=== PATIENT | male | born 1965 | race Caucasian/White ===

== ENCOUNTER 2017-12-04 21:34 | Inpatient (IN) | payer MEDICARE, OTHER ==
[2017-12-04 22:25] LABS: URINE MICROSCOPIC INDICATED? YES; URINE SOURCE RANDOM
[2017-12-04 22:27] LABS: URINE BILIRUBIN NEGATIVE (NEGATIVE); URINE BLOOD NEGATIVE (NEGATIVE); URINE GLUCOSE (UA) NEGATIVE (NEGATIVE); URINE KETONE NEGATIVE (NEGATIVE); URINE LEUKOCYTE ESTERASE NEGATIVE (NEGATIVE); URINE NITRATE NEGATIVE (NEGATIVE); URINE PROTEIN NEGATIVE (NEGATIVE); URINE UROBILINOGEN 0.2 E.U./dL (0.2 - 1.0)
[2017-12-04 22:29] LABS: URINE CLARITY c (CLEAR); URINE COLOR YELLOW
[2017-12-04 22:38] LABS: URINE BACTERIA FEW /hpf (NONE SEEN); URINE EPITHELIAL CELLS RARE /lpf (FEW); URINE RBC 0-2 /hpf (0-5)
[2017-12-05] MEDS ORDERED: Maalox 30 mL Cup PO PRN (00:26)
[2017-12-05] MEDS ORDERED: Acetaminophen 500 MG TAB PO PRN (00:26)
[2017-12-05] MEDS ORDERED: Magnesium Hydroxide (MOM) 30 mL UDC PO PRN (00:26)
[2017-12-05] MEDS ORDERED: Polyvinyl Alcohol Ophth Soln 15 mL Bottle EACH EYE PRN (00:32)
--- NOTE | 2017-12-05 01:06 | ED Physician Chart ---
ED Chief Complaint/HPI - Patient Information Date Seen:: 12/04/17 Time Seen:: 22:30 Chief Complaint:: Increased agitation History of Present Illness:: PATIENT SENT FROM INSTITUTIONAL CARE FOR EVALUATION FOR INCREASED AGITATION 1 DAY DURATION. Allergies:: Allergies Allergy/AdvReac Type Severity Reaction Status Date / Time clonazepam Allergy Verified 12/04/17 22:00 Historian:: EMS Review:: Nurse's Note Reviewed ED Review of Systems - Review of Systems Other: ROS UNAVAILABLE, PATIENT REFUSING. ED Past Medical History - Past Medical History Obtainable: No (PSYCHIATRIC HISTORY) Family Medical History - Family Member Mother History Unknown: Yes ED Physical Exam - Physical Examination General/Constitutional: Awake Head: Atraumatic Eyes: Lids, conjuctiva normal Skin: Nl inspection Cardio Vascular: RRR GI: No tenderness/rebounding/guarding Other GI comments:: OBESE. Extremities: No tenderness or effusion Other Neuro/Psych comments:: AGITATION. ED Assessment - Assessment General Assessment: DETERIORATION OF PSYCHOLOGICAL STATUS WITH INCREASED ANTISOCIAL BEHAVIOR. ED Septic Shock - . Is Septic Shock (SBP<90, OR Lactate>4 mmol\L) present?: No ED Reassessment (Disposition) - Reassessment Reassessment Condition:: Unchanged - Diagnosis Diagnosis:: INCREASED ANTISOCIAL BEHAVIOR WITH POTENTIAL PSYCHIATRIC DETERIORATION. - Patient Disposition Discharge/Transfer:: Acute Care w/in this hosp ED Discharge Plan - Patient Disposition Admit/Discharge/Transfer: Other Care w/in this hosp Condition at Disposition: Unchanged
[2017-12-05] MEDS: Multivitamin w/ Minerals Tab PO SCH (08:20)
[2017-12-05] MEDS: Benztropine 1 MG TAB PO SCH ×2 (08:20→18:01)
[2017-12-05] MEDS: Aspirin 81mg Chewable Tab PO SCH (08:20)
[2017-12-05] MEDS: risperiDONE 4 mg Tab PO SCH ×3 (08:20→18:01)
[2017-12-05] MEDS ORDERED: Non-Formulary Item 1 EA (Fluticasone/Salmeterol [Advair 100-50 Diskus] 1 PUFF) IH SCH (09:00)
--- NOTE | 2017-12-05 11:54 | History and Physical ---
History of Present Illness - HPI Chief Complaint: Aggressive behavior HPI: Patient was send from SNF due to aggressive behavior. 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: Report: No Pertinent Hx GI: Report: No Pertinent Hx Psych: Report: Schizophrenia Musculoskeletal: Report: No Pertinent Hx Rheumatologic: Report: No pertinent Hx Infectious Disease: Report: No Pertinent Hx Renal/: Report: No Pertinent Hx Endocrine: Report: No Pertinent Hx Dermatology: Report: Other (Left foot ulcer) - Past Surgical History Past Surgical History: No pertinent Hx Family Medical History - Family Member Mother History Unknown: Yes Ethnicity: Non- Living Status: Unknown Hx Family Cancer: (unknown) Hx Family Coronary Artery Disease: (unknown) Hx Family Congestive Heart Failure: (unknown) Hx Family Hypertension: (unknown) Hx Family Stroke: (unknown) Hx Family Diabetes: (unknown) Hx Family Seizures: (unknown) Hx Family Dementia: (unknown) Hx Family AIDS: (unknown) Hx Family COPD: (unknown) Hx Family Hepatitis: (unknown) Hx Family Psychiatric Problems: (unknown) Hx Family Tuberculosis: (unknown) Social History Smoke: No Alcohol: None Drugs: None [place]: [place] Domestic Violence: Negative - Medications Home Medications: Home Medication Medication Instructions Recorded Type Acetaminophen [Tylenol Extra 500 mg PO Q4HR PRN 12/04/17 History Strength] Albuterol/Ipratropium Neb [Duoneb 3 ml HHN Q4HR PRN 12/04/17 History Neb] Ascorbic Acid [Vitamin C] 500 mg PO BID 12/04/17 History Aspirin [Aspirin Chewable] 81 mg PO DAILY 12/04/17 History Baclofen [Lioresal*] 10 mg PO QID 12/04/17 History Benztropine [Cogentin*] 1 mg PO BID 12/04/17 History Bisacodyl 10 mg RC DAILY PRN 12/04/17 History Dextran 70/Hypromellose 1 each OP Q4H PRN 12/04/17 History [Artificial Tears] Docusate Sodium [Colace] 250 mg PO DAILY 12/04/17 History Fluticasone/Salmeterol [Advair 1 puff IH BID 12/04/17 History 100-50 Diskus] Mag Hydrox/Al Hydrox/Simeth 30 ml PO Q4H PRN 12/04/17 History [Maalox Advanced 355 ml] Magnesium Hydroxide [Milk of 30 ml PO DAILY PRN 12/04/17 History Magnesia] Melatonin 3 mg PO HS 12/04/17 History Multivitamin with Minerals 1 tab PO DAILY 12/04/17 History [Nature's Blend Multiple Vitamin with Minerals] Naproxen 250 mg PO Q4H PRN 12/04/17 History OXcarbazepine [Trileptal] 150 mg PO Q12H 12/04/17 History Risperidone 4 mg PO BID 12/04/17 History Trazodone HCl 50 mg PO HS 12/04/17 History - Allergies Allergies/Adverse Reactions: Allergies Allergy/AdvReac Type Severity Reaction Status Date / Time clonazepam Allergy Verified 12/04/17 22:00 Review of Systems - Review of Systems Constitutional: Report: No Significant Eyes: Report: No Significant ENT: Report: No Significant Respiratory: Report: No Significant Cardiovascular: Report: No Significant Gastrointestinal: Report: No Significant Genitourinary: Report: No Significant Musculoskeletal: Report: No Significant Skin: Report: No Significant Neurological: Report: No Significant Physical Exam - Physical Exam HEENT: Report: Ears Nose Throat within normal limits Neck: Report: Within normal limits Cardiovascular Systems: Report: Regular, Rate and Rhythm Respiratory: Report: Breath Sounds are within normal limits Abdomen: Report: Non-tender to palpation Back: Report: Inspection of back is within normal limits. Extremities: Report: Non-tender to palpation., Other (Left foot ulcer stage II) Skin: Report: Other (Left foot ulcer) Neuro/Psych: Report: Other (Patient is aggressive. ) - Lab Results All Lab Results last 24 hours: Laboratory Results - last 24 hr 12/04/17 22:00 Urine Source RANDOM Urine Color YELLOW Urine Clarity c Urine pH 6.0 Ur Specific [place] <= 1.005 Urine Protein NEGATIVE Urine Glucose (UA) NEGATIVE Urine Ketones NEGATIVE Urine Blood NEGATIVE Urine Nitrate NEGATIVE Urine Bilirubin NEGATIVE Urine Urobilinogen 0.2 Ur Leukocyte Esterase NEGATIVE Urine RBC 0-2 H Urine WBC 2-5 H Ur Epithelial Cells RARE Urine Bacteria FEW - Assessment Assessment: Patient is awake aggressive rfusing labs and no cooperating with Physical exam. Dx: Aggressive behavior, Foot ulcer. - Plan Plan: Patient under psychiatric care. Will continue with SNF meds. As soon patient give authorization we will draw blood and start treatment for Left foot ulcer.
--- NOTE | 2017-12-05 17:45 | Psychosocial Evaluation ---
DATE OF SERVICE: 12/04/2017 IDENTIFYING DATA: The patient is a 52-year-old male, resident of [facility]. Information obtained by directly interviewing the patient as well as reviewing the admission paper. JUSTIFICATION OF HOSPITALIZATION: The patient is admitted here on a voluntary basis in view of his aggression and out of control behavior. CHIEF COMPLAINT: "I should not be in here. I should be out." HISTORY OF PRESENT ILLNESS: This is the first psychiatric hospitalization to [facility] for this patient who is being followed up by ____ on an outpatient basis and the patient has been diagnosed to have schizophrenia, chronic paranoid type. The patient has been noted to have nonhealing ulcer on the leg and also the patient has been reported to have been getting easily agitated, screaming and yelling and hence the patient has been referred over here. Prior to the hospitalization, the patient has been on Risperdal and trazodone. The complaints is noted to be doubtful. PAST PSYCHIATRIC HISTORY: Details are not known. MEDICAL HISTORY: Physical examination is requested by Dr. Alanis. SUBSTANCE ABUSE HISTORY: None. PHYSICAL OR SEXUAL ABUSE HISTORY: None. LEGAL PROBLEMS: None at this time. STRENGTH AND ASSETS: The patient is motivated. MENTAL STATUS EXAMINATION: The patient is a 52-year-old well built, looking his stated age, superficially cooperative. Eye contact is poor. Mood is noted to be irritable. Affect is constricted. Insight and judgment at this time are noted to be very much impaired. Impulse control is noted to be poor. The patient has paranoid delusions, but denies any command hallucinations. The patient is demanding that he should be out of this hospital and the patient's coping skills are noted to be poor. The patient has no clue where he is going to be going when he leaves this place. The patient is alert and oriented x 3. DIAGNOSTIC IMPRESSION: AXIS I: Schizophrenia, chronic, paranoid type by history. AXIS II: None. AXIS III: As per Dr. Alanis. IMMEDIATE TREATMENT PLAN: The patient is going to be observed on inpatient unit probably supportive psychotherapy. Continued on the Risperdal and trazodone. ESTIMATED LENGTH OF STAY: Three to five days. DISCHARGE CRITERIA: When he no longer a threat to self or others and be able to cope up with the stress. JOB# [id number]
[2017-12-05] MEDS ORDERED: Non-Formulary Item 1 EA (Melatonin [Melatonin] 3 MG) PO SCH (21:00)
[2017-12-05] MEDS: Albuterol/Ipratropium Neb 3 ML AERS HHN PRN (21:11)
[2017-12-06] MEDS: Aspirin 81mg Chewable Tab PO SCH (09:05)
[2017-12-06] MEDS: Benztropine 1 MG TAB PO SCH ×2 (09:05→17:23)
[2017-12-06] MEDS: Multivitamin w/ Minerals Tab PO SCH (09:06)
[2017-12-06] MEDS: risperiDONE 4 mg Tab PO SCH ×2 (09:07→17:23)
--- NOTE | 2017-12-06 20:02 | Progress Notes ---
DATE: 12/06/2017 SUBJECTIVE: Staff was spoken to. The patient is interviewed. Mood is noted to be irritable. Affect is constricted. Coping skills are noted to be poor at this time. The patient is stating that he could not figure it out why they have to send him in here from [facility]. The patient is reluctant to take any medications. Insight and judgment are noted to be still impaired. Impulse control is noted to be limited. Sleep is noted to be fair. Appetite is also noted to be fair. ASSESSMENT: The patient is still psychotic and impulsive. PLAN: To continue the patient with supportive therapy and encourage the patient to verbalize the consent rather than to act out. JOB# [id number]
[2017-12-07] MEDS: Benztropine 1 MG TAB PO SCH ×2 (08:26→16:33)
[2017-12-07] MEDS: Aspirin 81mg Chewable Tab PO SCH (08:27)
[2017-12-07] MEDS: Multivitamin w/ Minerals Tab PO SCH (08:27)
[2017-12-07] MEDS: risperiDONE 4 mg Tab PO SCH ×2 (08:27→16:32)
--- NOTE | 2017-12-07 09:25 | General Progress Note ---
Subjective - Review of Systems Service Date: 12/07/17 Subjective: I am OK. Objective - Results Recent Labs: Laboratory Last Values Urine Source RANDOM 12/04/17 22:00 Urine Color YELLOW 12/04/17 22:00 Urine Clarity c (CLEAR) 12/04/17 22:00 Urine pH 6.0 (4.6 - 8.0) 12/04/17 22:00 Ur Specific [place] <= 1.005 (1.005-1.030) 12/04/17 22:00 Urine Protein NEGATIVE mg/dL (NEGATIVE) 12/04/17 22:00 Urine Glucose (UA) NEGATIVE mg/dL (NEGATIVE) 12/04/17 22:00 Urine Ketones NEGATIVE mg/dL (NEGATIVE) 12/04/17 22:00 Urine Blood NEGATIVE (NEGATIVE) 12/04/17 22:00 Urine Nitrate NEGATIVE (NEGATIVE) 12/04/17 22:00 Urine Bilirubin NEGATIVE (NEGATIVE) 12/04/17 22:00 Urine Urobilinogen 0.2 E.U./dL (0.2 - 1.0) 12/04/17 22:00 Ur Leukocyte Esterase NEGATIVE (NEGATIVE) 12/04/17 22:00 Urine RBC 0-2 /hpf (0-5) H 12/04/17 22:00 Urine WBC 2-5 /hpf (0-5) H 12/04/17 22:00 Ur Epithelial Cells RARE /lpf (FEW) 12/04/17 22:00 Urine Bacteria FEW /hpf (NONE SEEN) 12/04/17 22:00 - Physical Exam Vitals and I&O: Vital Signs Temp 97.7 F 12/07/17 05:54 Pulse 80 12/07/17 08:16 Resp 16 12/07/17 08:16 BP 124/76 12/07/17 05:54 Pulse Ox 96 12/07/17 08:16 Intake & Output 12/06/17 12/07/17 12/07/17 18:59 06:59 18:59 Intake Total 1000 120 Balance 1000 120 Intake: Oral 1000 120 Other: # Voids 4 3 # Bowel Movements 1 Active Medications: Current Medications Acetaminophen (Tylenol Extra Strength) 500 mg PO Q4HR PRN PRN Reason: Pain (Mild) Stop: 02/03/18 00:25 Al Hydrox/Mg Hydrox/Simethicone (Maalox) 30 ml PO Q4H PRN PRN Reason: GI DISTRESS Stop: 02/03/18 00:25 Albuterol/Ipratropium (Duoneb Neb) 3 ml HHN Q4HR PRN PRN Reason: Shortness of Breath Stop: 02/03/18 00:25 Last Admin: 12/05/17 21:11 Dose: 3 ml Artificial Tears (Artificial Tears Ophth Soln) 1 drop EACH EYE Q4H PRN PRN Reason: Dry Eye Stop: 02/03/18 00:31 Ascorbic Acid (Vitamin C) 500 mg PO BID [facility] Stop: 02/03/18 08:59 Last Admin: 12/07/17 08:26 Dose: 500 mg Aspirin (Aspirin Chewable) 81 mg PO DAILY [facility] Stop: 02/03/18 08:59 Last Admin: 12/07/17 08:27 Dose: 81 mg Baclofen (Lioresal) 10 mg PO QID [facility] Stop: 02/03/18 08:59 Last Admin: 12/07/17 08:26 Dose: 10 mg Benztropine Mesylate (Cogentin) 1 mg PO BID [facility] Stop: 02/03/18 08:59 Last Admin: 12/07/17 08:26 Dose: 1 mg Betamethasone/Clotrimazole (Lotrisone Cream) 1 appl TP BID [facility] Stop: 02/05/18 16:59 Bisacodyl (Dulcolax 10 Mg Supp) 10 mg RC DAILY PRN PRN Reason: Constipation Stop: 02/03/18 00:25 Docusate Sodium (Colace) 250 mg PO DAILY [facility] Stop: 02/03/18 08:59 Last Admin: 12/06/17 09:05 Dose: Not Given Lorazepam (Ativan) 0.5 mg PO Q6HR PRN; Protocol PRN Reason: Agitation Stop: 02/03/18 00:21 Last Admin: 12/06/17 07:02 Dose: 0.5 mg Magnesium Hydroxide (Milk Of Magnesia) 30 ml PO DAILY PRN PRN Reason: Constipation Stop: 02/03/18 00:25 Naproxen (Naprosyn) 250 mg PO Q4H PRN PRN Reason: Pain (Moderate) Stop: 02/03/18 00:25 Oxcarbazepine (Trileptal) 150 mg PO Q12H LACHO PRN Reason: Protocol Stop: 02/03/18 20:59 Last Admin: 12/07/17 08:27 Dose: 150 mg Risperidone (Risperdal) 4 mg PO BID [facility]O PRN Reason: Protocol Stop: 02/03/18 08:59 Last Admin: 12/07/17 08:27 Dose: 4 mg Trazodone HCl (Desyrel) 50 mg PO HS [facility]ACHO PRN Reason: Protocol Stop: 02/03/18 20:59 Last Admin: 12/06/17 20:05 Dose: 50 mg General: Alert, Other (Confused) HEENT: Atraumatic Neck: Supple Cardiovascular: Regular rate Lungs: Clear to auscultation Abdomen: Bowel sounds Extremities: Other (Ulcer in right foot) Neurological: Normal gait Skin: Other (Ulcer right foot) Psych/Mental Status: no Other (Confused not oriented) Assessment/Plan - Assessment Assessment: Patient is awake, Calm in no acute distress. Dx: Aggressive behavior, Foot ulcer. - Plan Plan: Patient under psychiatric care. Will continue with SNF meds. Podiatry consult is request.
--- NOTE | 2017-12-07 12:10 | Progress Notes ---
DATE: 12/07/2017 SUBJECTIVE: Staff was spoken to. The patient is interviewed. Mood is noted to be irritable. Affect is constricted. Insight and judgment are to be still impaired. Impulse control is noted to be poor. Coping skills are also noted to be very poor. The patient has been having difficult time to cope with the stress. The patient is stating that he needs to be discharged. He wants to go to the [facility], but in view of his aggression it is not very clear whether they are going to be accepting the patient or not. ASSESSMENT: The patient is still impulsive. PLAN: To continue the patient with the supportive therapy, encouraged the patient to verbalize the concerns rather than to act out. [facility]# [id number]
[2017-12-07] MEDS: Betamethasone/Clotrimazole Cream 15 gm Tube TP SCH ×2 (13:48→16:34)
[2017-12-08] MEDS: Multivitamin w/ Minerals Tab PO SCH (08:52)
[2017-12-08] MEDS: Benztropine 1 MG TAB PO SCH ×2 (08:52→16:32)
[2017-12-08] MEDS: Betamethasone/Clotrimazole Cream 15 gm Tube TP SCH ×2 (08:52→16:32)
[2017-12-08] MEDS: Venelex 60gm Tube TP SCH (08:52)
[2017-12-08] MEDS: risperiDONE 4 mg Tab PO SCH ×2 (08:52→16:32)
[2017-12-08] MEDS: Aspirin 81mg Chewable Tab PO SCH (08:53)
--- NOTE | 2017-12-08 14:49 | General Progress Note ---
Subjective - Review of Systems Service Date: 12/08/17 Subjective: I want to refused medical care Objective - Results Recent Labs: Laboratory Last Values Urine Source RANDOM 12/04/17 22:00 Urine Color YELLOW 12/04/17 22:00 Urine Clarity c (CLEAR) 12/04/17 22:00 Urine pH 6.0 (4.6 - 8.0) 12/04/17 22:00 Ur Specific [place] <= 1.005 (1.005-1.030) 12/04/17 22:00 Urine Protein NEGATIVE mg/dL (NEGATIVE) 12/04/17 22:00 Urine Glucose (UA) NEGATIVE mg/dL (NEGATIVE) 12/04/17 22:00 Urine Ketones NEGATIVE mg/dL (NEGATIVE) 12/04/17 22:00 Urine Blood NEGATIVE (NEGATIVE) 12/04/17 22:00 Urine Nitrate NEGATIVE (NEGATIVE) 12/04/17 22:00 Urine Bilirubin NEGATIVE (NEGATIVE) 12/04/17 22:00 Urine Urobilinogen 0.2 E.U./dL (0.2 - 1.0) 12/04/17 22:00 Ur Leukocyte Esterase NEGATIVE (NEGATIVE) 12/04/17 22:00 Urine RBC 0-2 /hpf (0-5) H 12/04/17 22:00 Urine WBC 2-5 /hpf (0-5) H 12/04/17 22:00 Ur Epithelial Cells RARE /lpf (FEW) 12/04/17 22:00 Urine Bacteria FEW /hpf (NONE SEEN) 12/04/17 22:00 - Physical Exam Vitals and I&O: Vital Signs Temp 97.5 F 12/08/17 06:00 Pulse 50 12/08/17 06:00 Resp 20 12/08/17 06:00 BP 109/58 12/08/17 06:00 Pulse Ox 96 12/08/17 06:00 Intake & Output 12/07/17 12/08/17 12/08/17 18:59 06:59 18:59 Intake Total 1200 360 Balance 1200 360 Intake: Oral 1200 360 Other: # Voids 3 2 # Bowel Movements 1 0 Active Medications: Current Medications Acetaminophen (Tylenol Extra Strength) 500 mg PO Q4HR PRN PRN Reason: Pain (Mild) Stop: 02/03/18 00:25 Al Hydrox/Mg Hydrox/Simethicone (Maalox) 30 ml PO Q4H PRN PRN Reason: GI DISTRESS Stop: 02/03/18 00:25 Albuterol/Ipratropium (Duoneb Neb) 3 ml HHN Q4HR PRN PRN Reason: Shortness of Breath Stop: 02/03/18 00:25 Last Admin: 12/05/17 21:11 Dose: 3 ml Artificial Tears (Artificial Tears Ophth Soln) 1 drop EACH EYE Q4H PRN PRN Reason: Dry Eye Stop: 02/03/18 00:31 Ascorbic Acid (Vitamin C) 500 mg PO BID [facility] Stop: 02/03/18 08:59 Last Admin: 12/08/17 08:53 Dose: 500 mg Aspirin (Aspirin Chewable) 81 mg PO DAILY [facility] Stop: 02/03/18 08:59 Last Admin: 12/08/17 08:53 Dose: 81 mg Baclofen (Lioresal) 10 mg PO QID [facility] Stop: 02/03/18 08:59 Last Admin: 12/08/17 13:02 Dose: 10 mg Benztropine Mesylate (Cogentin) 1 mg PO BID [facility] Stop: 02/03/18 08:59 Last Admin: 12/08/17 08:52 Dose: 1 mg Betamethasone/Clotrimazole (Lotrisone Cream) 1 appl TP BID [facility] Stop: 02/05/18 10:59 Last Admin: 12/08/17 08:52 Dose: 1 appl Bisacodyl (Dulcolax 10 Mg Supp) 10 mg RC DAILY PRN PRN Reason: Constipation Stop: 02/03/18 00:25 Mouthcard Oil/[place] Balsam/Trypsin (Venelex) 1 appl TP DAILY [facility] Stop: 02/06/18 08:59 Last Admin: 12/08/17 08:52 Dose: 1 appl Docusate Sodium (Colace) 250 mg PO DAILY [facility] Stop: 02/03/18 08:59 Last Admin: 12/08/17 08:52 Dose: 250 mg Lorazepam (Ativan) 0.5 mg PO Q6HR PRN; Protocol PRN Reason: Agitation Stop: 02/03/18 00:21 Last Admin: 12/06/17 07:02 Dose: 0.5 mg Magnesium Hydroxide (Milk Of Magnesia) 30 ml PO DAILY PRN PRN Reason: Constipation Stop: 02/03/18 00:25 Naproxen (Naprosyn) 250 mg PO Q4H PRN PRN Reason: Pain (Moderate) Stop: 02/03/18 00:25 Oxcarbazepine (Trileptal) 150 mg PO Q12H LACHO PRN Reason: Protocol Stop: 02/03/18 20:59 Last Admin: 12/08/17 08:52 Dose: 150 mg Risperidone (Risperdal) 4 mg PO BID [facility] PRN Reason: Protocol Stop: 02/03/18 08:59 Last Admin: 12/08/17 08:52 Dose: 4 mg Trazodone HCl (Desyrel) 50 mg PO HS [facility]ACH[facility] PRN Reason: Protocol Stop: 02/03/18 20:59 Last Admin: 12/07/17 20:52 Dose: 50 mg General: Alert, Other (Confused) HEENT: Atraumatic Neck: Supple Cardiovascular: Regular rate Lungs: Clear to auscultation Abdomen: Bowel sounds Extremities: Other (Ulcer in right foot) Neurological: Normal gait Skin: Other (Ulcer right foot) Psych/Mental Status: no Other (Confused not oriented) Assessment/Plan - Assessment Assessment: Patient is awake, Calm in no acute distress. Dx: Aggressive behavior, Foot ulcer. - Plan Plan: Patient under psychiatric care. Will continue with SNF meds. Podiatry consult is request. Nutritional Asmnt/Malnutr-PDOC - Dietary Evaluation Malnutrition Findings (Please click <Entered> for more info): Nutritional Asmnt/Malnutrition Start: 12/08/17 14: 30 Text: Status: Complete Freq: Document 12/08/17 14:30 RUDY (Rec: 12/08/17 14:36 [email or web address] [email or web address]) Nutritional Asmnt/Malnutrition Patient General Information Nutritional Screening High Risk Consult Diagnosis psychosis Pertinent Medical Hx/Surgical Hx schizophrenia, left foot ulcer Subjective Information Pt seen resting in bed at time of visit. Per notes, PO intake 100% of all meals. Current Diet Order/ Nutrition Support mech soft chopped Pertinent Medications vitamin c, colace Pertinent Labs no nutrition related labs Nutritional Hx/Data Height 1.91 m Height (Calculated Centimeters) 190.5 Current Weight (lbs) 135.171 kg Weight (Calculated Kilograms) 135.2 Weight (Calculated Grams) 770199.5 [place] Body Weight 196 % [place] Body Weight 152 Body Mass Index (BMI) 37.2 Weight Status Obese GI Symptoms GI Symptoms None Last BM 12/07 Difficult in: None Skin Integrity/Comment: ulcer on right heel, decubitus pressure area to right foot Estimated Nutritional Goals BEE in Kcals: Adj wt of IBW Calories/Kcals/Kg 25-30 based on adj wt 101kg Kcals Calculated [id number] Protein: Adj wt of IBW Protein g/k-1.2 Protein Calculated 101-121 Fluid: ml 2525-3030ml (1ml/kcal) Nutritional Problem 1. Problem Problem increased nutrition needs ( protein) Etiology increased metabolic demand for wound healing Signs/Symptoms: ulcer on right heel Malnutrition Alert Protein-Calorie Malnutrition N/A Is there a minimum of two criteria No selected? Query Text:Check all the applicable criteria. A minimum of two criteria are recommended for diagnosis of either severe or non-severe malnutrition. Intervention/Recommendation Comments 1. Continue with current diet as ordered. 2. Monitor PO intake, wt, labs and skin integrity 3. F/U as low risk in 7 days, 12/15 Expected Outcomes/Goals Expected Outcomes/Goals 1. PO intake to meet at least 75% of nutritional needs. 2. Wt stability, skin to remain intact, labs WNL
--- NOTE | 2017-12-08 16:24 | Progress Notes ---
DATE: 12/08/2017 SUBJECTIVE: Staff was spoken to. The patient is interviewed. Mood is noted to be dysphoric. Coping skills are noted to be very poor. Sleep and appetite are also noted to be very poor. The patient has been having difficult time to cope with the stress. The patient is very impulsive and demanding. The patient is not ready to be discharged to a lower level of care since the facility does not feel comfortable with the patient coming back. [facility]# [id number]
--- NOTE | 2017-12-09 08:31 | General Progress Note ---
Subjective - Review of Systems Service Date: 12/09/17 Subjective: I am fine Objective - Results Recent Labs: Laboratory Last Values Urine Source RANDOM 12/04/17 22:00 Urine Color YELLOW 12/04/17 22:00 Urine Clarity c (CLEAR) 12/04/17 22:00 Urine pH 6.0 (4.6 - 8.0) 12/04/17 22:00 Ur Specific [place] <= 1.005 (1.005-1.030) 12/04/17 22:00 Urine Protein NEGATIVE mg/dL (NEGATIVE) 12/04/17 22:00 Urine Glucose (UA) NEGATIVE mg/dL (NEGATIVE) 12/04/17 22:00 Urine Ketones NEGATIVE mg/dL (NEGATIVE) 12/04/17 22:00 Urine Blood NEGATIVE (NEGATIVE) 12/04/17 22:00 Urine Nitrate NEGATIVE (NEGATIVE) 12/04/17 22:00 Urine Bilirubin NEGATIVE (NEGATIVE) 12/04/17 22:00 Urine Urobilinogen 0.2 E.U./dL (0.2 - 1.0) 12/04/17 22:00 Ur Leukocyte Esterase NEGATIVE (NEGATIVE) 12/04/17 22:00 Urine RBC 0-2 /hpf (0-5) H 12/04/17 22:00 Urine WBC 2-5 /hpf (0-5) H 12/04/17 22:00 Ur Epithelial Cells RARE /lpf (FEW) 12/04/17 22:00 Urine Bacteria FEW /hpf (NONE SEEN) 12/04/17 22:00 - Physical Exam Vitals and I&O: Vital Signs Temp 97.6 F 12/09/17 05:52 Pulse 58 12/09/17 07:46 Resp 18 12/09/17 07:46 BP 123/73 12/09/17 05:52 Pulse Ox 96 12/09/17 07:46 Intake & Output 12/08/17 12/09/17 12/09/17 18:59 06:59 18:59 Intake Total 600 Balance 600 Intake: Oral 600 Other: # Voids 2 # Bowel Movements 1 Active Medications: Current Medications Acetaminophen (Tylenol Extra Strength) 500 mg PO Q4HR PRN PRN Reason: Pain (Mild) Stop: 02/03/18 00:25 Al Hydrox/Mg Hydrox/Simethicone (Maalox) 30 ml PO Q4H PRN PRN Reason: GI DISTRESS Stop: 02/03/18 00:25 Albuterol/Ipratropium (Duoneb Neb) 3 ml HHN Q4HR PRN PRN Reason: Shortness of Breath Stop: 02/03/18 00:25 Last Admin: 12/05/17 21:11 Dose: 3 ml Artificial Tears (Artificial Tears Ophth Soln) 1 drop EACH EYE Q4H PRN PRN Reason: Dry Eye Stop: 02/03/18 00:31 Ascorbic Acid (Vitamin C) 500 mg PO BID LACHO Stop: 02/03/18 08:59 Last Admin: 12/08/17 16:32 Dose: 500 mg Aspirin (Aspirin Chewable) 81 mg PO DAILY LACHO Stop: 02/03/18 08:59 Last Admin: 12/08/17 08:53 Dose: 81 mg Baclofen (Lioresal) 10 mg PO QID LACHO Stop: 02/03/18 08:59 Last Admin: 12/08/17 21:07 Dose: 10 mg Benztropine Mesylate (Cogentin) 1 mg PO BID LACHO Stop: 02/03/18 08:59 Last Admin: 12/08/17 16:32 Dose: 1 mg Betamethasone/Clotrimazole (Lotrisone Cream) 1 appl TP BID LACHO Stop: 02/05/18 10:59 Last Admin: 12/08/17 16:32 Dose: 1 appl Bisacodyl (Dulcolax 10 Mg Supp) 10 mg RC DAILY PRN PRN Reason: Constipation Stop: 02/03/18 00:25 [place] Oil/[place] Balsam/Trypsin (Venelex) 1 appl TP DAILY LACHO Stop: 02/06/18 08:59 Last Admin: 12/08/17 08:52 Dose: 1 appl Docusate Sodium (Colace) 250 mg PO DAILY LACHO Stop: 02/03/18 08:59 Last Admin: 12/08/17 08:52 Dose: 250 mg Lorazepam (Ativan) 0.5 mg PO Q6HR PRN; Protocol PRN Reason: Agitation Stop: 02/03/18 00:21 Last Admin: 12/06/17 07:02 Dose: 0.5 mg Magnesium Hydroxide (Milk Of Magnesia) 30 ml PO DAILY PRN PRN Reason: Constipation Stop: 02/03/18 00:25 Naproxen (Naprosyn) 250 mg PO Q4H PRN PRN Reason: Pain (Moderate) Stop: 02/03/18 00:25 Oxcarbazepine (Trileptal) 150 mg PO Q12H LACHO PRN Reason: Protocol Stop: 02/03/18 20:59 Last Admin: 12/08/17 21:07 Dose: 150 mg Risperidone (Risperdal) 4 mg PO BID LACHO PRN Reason: Protocol Stop: 02/03/18 08:59 Last Admin: 12/08/17 16:32 Dose: 4 mg Trazodone HCl (Desyrel) 50 mg PO HS LACHO PRN Reason: Protocol Stop: 02/03/18 20:59 Last Admin: 12/08/17 21:07 Dose: 50 mg General: Alert, Other (Confused) HEENT: Atraumatic Neck: Supple Cardiovascular: Regular rate Lungs: Clear to auscultation Abdomen: Bowel sounds Extremities: Other (Ulcer in right foot) Neurological: Normal gait Skin: Other (Ulcer right foot) Psych/Mental Status: no Other (Confused not oriented) Assessment/Plan - Assessment Assessment: Patient is awake, Calm in no acute distress. Dx: Aggressive behavior, Foot ulcer. - Plan Plan: Patient under psychiatric care. Will continue with SNF meds. Podiatry consult is request. Nutritional Asmnt/Malnutr-PDOC - Dietary Evaluation Malnutrition Findings (Please click <Entered> for more info): Nutritional Asmnt/Malnutrition Start: 12/08/17 14: 30 Text: Status: Complete Freq: Document 12/08/17 14:30 RUDY (Rec: 12/08/17 14:36 RUDY [email or web address]) Nutritional Asmnt/Malnutrition Patient General Information Nutritional Screening High Risk Consult Diagnosis psychosis Pertinent Medical Hx/Surgical Hx schizophrenia, left foot ulcer Subjective Information Pt seen resting in bed at time of visit. Per notes, PO intake 100% of all meals. Current Diet Order/ Nutrition Support mech soft chopped Pertinent Medications vitamin c, colace Pertinent Labs no nutrition related labs Nutritional Hx/Data Height 1.91 m Height (Calculated Centimeters) 190.5 Current Weight (lbs) 135.171 kg Weight (Calculated Kilograms) 135.2 Weight (Calculated Grams) 106444.5 [place] Body Weight 196 % [place] Body Weight 152 Body Mass Index (BMI) 37.2 Weight Status Obese GI Symptoms GI Symptoms None Last BM 12/07 Difficult in: None Skin Integrity/Comment: ulcer on right heel, decubitus pressure area to right foot Estimated Nutritional Goals BEE in Kcals: Adj wt of IBW Calories/Kcals/Kg 25-30 based on adj wt 101kg Kcals Calculated 0278-0059 Protein: Adj wt of IBW Protein g/k-1.2 Protein Calculated 101-121 Fluid: ml 2525-3030ml (1ml/kcal) Nutritional Problem 1. Problem Problem increased nutrition needs ( protein) Etiology increased metabolic demand for wound healing Signs/Symptoms: ulcer on right heel Malnutrition Alert Protein-Calorie Malnutrition N/A Is there a minimum of two criteria No selected? Query Text:Check all the applicable criteria. A minimum of two criteria are recommended for diagnosis of either severe or non-severe malnutrition. Intervention/Recommendation Comments 1. Continue with current diet as ordered. 2. Monitor PO intake, wt, labs and skin integrity 3. F/U as low risk in 7 days, 12/15 Expected Outcomes/Goals Expected Outcomes/Goals 1. PO intake to meet at least 75% of nutritional needs. 2. Wt stability, skin to remain intact, labs WNL
[2017-12-09] MEDS: Aspirin 81mg Chewable Tab PO SCH (08:50)
[2017-12-09] MEDS: Venelex 60gm Tube TP SCH (08:51)
[2017-12-09] MEDS: Betamethasone/Clotrimazole Cream 15 gm Tube TP SCH ×2 (08:51→16:11)
[2017-12-09] MEDS: Benztropine 1 MG TAB PO SCH ×2 (08:51→16:10)
[2017-12-09] MEDS: risperiDONE 4 mg Tab PO SCH ×2 (08:52→16:11)
[2017-12-09] MEDS: Multivitamin w/ Minerals Tab PO SCH (08:52)
--- NOTE | 2017-12-09 23:32 | Progress Notes ---
DATE: 12/09/2017 SUBJECTIVE: Staff was spoken to. The patient is interviewed. Mood is noted to be irritable. Affect is constricted. Insight and judgment are noted to be still impaired. Impulse control seems to be poor. Coping skills are also noted to be very poor. The patient has been having difficult time to cope with the stress. The patient is insisting on having his way and wants to get back to the same facility that he came from. ASSESSMENT: The patient is still impulsive. PLAN: Continue the patient with the current medications. I encouraged the patient to verbalize the concerns rather than to act out. The patient has been currently on oxcarbazepine and trazodone and Risperdal and has been able to tolerate the medications. Continue the patient with the supportive therapy. I encouraged the patient to verbalize the concerns rather than to act out. JOB# [id number]
--- NOTE | 2017-12-10 08:34 | General Progress Note ---
Subjective - Review of Systems Service Date: 12/10/17 Subjective: I am fine Objective - Results Recent Labs: Laboratory Last Values Urine Source RANDOM 12/04/17 22:00 Urine Color YELLOW 12/04/17 22:00 Urine Clarity c (CLEAR) 12/04/17 22:00 Urine pH 6.0 (4.6 - 8.0) 12/04/17 22:00 Ur Specific [place] <= 1.005 (1.005-1.030) 12/04/17 22:00 Urine Protein NEGATIVE mg/dL (NEGATIVE) 12/04/17 22:00 Urine Glucose (UA) NEGATIVE mg/dL (NEGATIVE) 12/04/17 22:00 Urine Ketones NEGATIVE mg/dL (NEGATIVE) 12/04/17 22:00 Urine Blood NEGATIVE (NEGATIVE) 12/04/17 22:00 Urine Nitrate NEGATIVE (NEGATIVE) 12/04/17 22:00 Urine Bilirubin NEGATIVE (NEGATIVE) 12/04/17 22:00 Urine Urobilinogen 0.2 E.U./dL (0.2 - 1.0) 12/04/17 22:00 Ur Leukocyte Esterase NEGATIVE (NEGATIVE) 12/04/17 22:00 Urine RBC 0-2 /hpf (0-5) H 12/04/17 22:00 Urine WBC 2-5 /hpf (0-5) H 12/04/17 22:00 Ur Epithelial Cells RARE /lpf (FEW) 12/04/17 22:00 Urine Bacteria FEW /hpf (NONE SEEN) 12/04/17 22:00 - Physical Exam Vitals and I&O: Vital Signs Temp 97 F 12/10/17 06:28 Pulse 80 12/10/17 08:12 Resp 18 12/10/17 08:12 BP 132/74 12/10/17 06:28 Pulse Ox 98 12/10/17 08:12 Intake & Output 12/09/17 12/10/17 12/10/17 18:59 06:59 18:59 Intake Total 620 Balance 620 Intake: Oral 620 Other: # Voids 2 Active Medications: Current Medications Acetaminophen (Tylenol Extra Strength) 500 mg PO Q4HR PRN PRN Reason: Pain (Mild) Stop: 02/03/18 00:25 Al Hydrox/Mg Hydrox/Simethicone (Maalox) 30 ml PO Q4H PRN PRN Reason: GI DISTRESS Stop: 02/03/18 00:25 Albuterol/Ipratropium (Duoneb Neb) 3 ml HHN Q4HR PRN PRN Reason: Shortness of Breath Stop: 02/03/18 00:25 Last Admin: 12/05/17 21:11 Dose: 3 ml Artificial Tears (Artificial Tears Ophth Soln) 1 drop EACH EYE Q4H PRN PRN Reason: Dry Eye Stop: 02/03/18 00:31 Ascorbic Acid (Vitamin C) 500 mg PO BID LACHO Stop: 02/03/18 08:59 Last Admin: 12/09/17 16:10 Dose: 500 mg Aspirin (Aspirin Chewable) 81 mg PO DAILY LACHO Stop: 02/03/18 08:59 Last Admin: 12/09/17 08:50 Dose: 81 mg Baclofen (Lioresal) 10 mg PO QID LACHO Stop: 02/03/18 08:59 Last Admin: 12/09/17 20:28 Dose: 10 mg Benztropine Mesylate (Cogentin) 1 mg PO BID LACHO Stop: 02/03/18 08:59 Last Admin: 12/09/17 16:10 Dose: 1 mg Betamethasone/Clotrimazole (Lotrisone Cream) 1 appl TP BID [facility] Stop: 02/05/18 10:59 Last Admin: 12/09/17 16:11 Dose: 1 appl Bisacodyl (Dulcolax 10 Mg Supp) 10 mg RC DAILY PRN PRN Reason: Constipation Stop: 02/03/18 00:25 [place] Oil/[place] Balsam/Trypsin (Venelex) 1 appl TP DAILY LACHO Stop: 02/06/18 08:59 Last Admin: 12/09/17 08:51 Dose: 1 appl Docusate Sodium (Colace) 250 mg PO DAILY LACHO Stop: 02/03/18 08:59 Last Admin: 12/09/17 08:51 Dose: 250 mg Lorazepam (Ativan) 0.5 mg PO Q6HR PRN; Protocol PRN Reason: Agitation Stop: 02/03/18 00:21 Last Admin: 12/09/17 20:28 Dose: 0.5 mg Magnesium Hydroxide (Milk Of Magnesia) 30 ml PO DAILY PRN PRN Reason: Constipation Stop: 02/03/18 00:25 Naproxen (Naprosyn) 250 mg PO Q4H PRN PRN Reason: Pain (Moderate) Stop: 02/03/18 00:25 Oxcarbazepine (Trileptal) 150 mg PO Q12H LACHO PRN Reason: Protocol Stop: 02/03/18 20:59 Last Admin: 12/09/17 20:28 Dose: 150 mg Risperidone (Risperdal) 4 mg PO BID LACHO PRN Reason: Protocol Stop: 02/03/18 08:59 Last Admin: 12/09/17 16:11 Dose: 4 mg Trazodone HCl (Desyrel) 50 mg PO HS LACHO PRN Reason: Protocol Stop: 02/03/18 20:59 Last Admin: 12/09/17 20:28 Dose: 50 mg General: Alert, Other (Confused) HEENT: Atraumatic Neck: Supple Cardiovascular: Regular rate Lungs: Clear to auscultation Abdomen: Bowel sounds Extremities: Other (Ulcer in right foot) Neurological: Normal gait Skin: Other (Ulcer right foot) Psych/Mental Status: no Other (Confused not oriented) Assessment/Plan - Assessment Assessment: Patient is awake, Calm in no acute distress. Dx: Aggressive behavior, Foot ulcer. - Plan Plan: Patient under psychiatric care. Will continue with SNF meds. Nutritional Asmnt/Malnutr-PDOC - Dietary Evaluation Malnutrition Findings (Please click <Entered> for more info): Nutritional Asmnt/Malnutrition Start: 12/08/17 14: 30 Text: Status: Complete Freq: Document 12/08/17 14:30 LCLEVARG (Rec: 12/08/17 14:36 [email or web address]) Nutritional Asmnt/Malnutrition Patient General Information Nutritional Screening High Risk Consult Diagnosis psychosis Pertinent Medical Hx/Surgical Hx schizophrenia, left foot ulcer Subjective Information Pt seen resting in bed at time of visit. Per notes, PO intake 100% of all meals. Current Diet Order/ Nutrition Support mech soft chopped Pertinent Medications vitamin c, colace Pertinent Labs no nutrition related labs Nutritional Hx/Data Height 1.91 m Height (Calculated Centimeters) 190.5 Current Weight (lbs) 135.171 kg Weight (Calculated Kilograms) 135.2 Weight (Calculated Grams) 960945.5 [place] Body Weight 196 % [place] Body Weight 152 Body Mass Index (BMI) 37.2 Weight Status Obese GI Symptoms GI Symptoms None Last BM 12/07 Difficult in: None Skin Integrity/Comment: ulcer on right heel, decubitus pressure area to right foot Estimated Nutritional Goals BEE in Kcals: Adj wt of IBW Calories/Kcals/Kg 25-30 based on adj wt 101kg Kcals Calculated 5683-4672 Protein: Adj wt of IBW Protein g/k-1.2 Protein Calculated 101-121 Fluid: ml 2525-3030ml (1ml/kcal) Nutritional Problem 1. Problem Problem increased nutrition needs ( protein) Etiology increased metabolic demand for wound healing Signs/Symptoms: ulcer on right heel Malnutrition Alert Protein-Calorie Malnutrition N/A Is there a minimum of two criteria No selected? Query Text:Check all the applicable criteria. A minimum of two criteria are recommended for diagnosis of either severe or non-severe malnutrition. Intervention/Recommendation Comments 1. Continue with current diet as ordered. 2. Monitor PO intake, wt, labs and skin integrity 3. F/U as low risk in 7 days, 12/15 Expected Outcomes/Goals Expected Outcomes/Goals 1. PO intake to meet at least 75% of nutritional needs. 2. Wt stability, skin to remain intact, labs WNL
[2017-12-10] MEDS: risperiDONE 4 mg Tab PO SCH ×2 (08:58→17:16)
[2017-12-10] MEDS: Multivitamin w/ Minerals Tab PO SCH (08:58)
[2017-12-10] MEDS: Benztropine 1 MG TAB PO SCH ×2 (08:58→17:16)
[2017-12-10] MEDS: Aspirin 81mg Chewable Tab PO SCH (08:58)
[2017-12-10] MEDS: Venelex 60gm Tube TP SCH (14:05)
[2017-12-10] MEDS: Betamethasone/Clotrimazole Cream 15 gm Tube TP SCH ×2 (14:05→21:30)
--- NOTE | 2017-12-10 14:52 | Progress Notes ---
DATE: 12/10/2017 SUBJECTIVE: Staff was spoken to. The patient is interviewed. Mood is noted to be irritable. Affect is constricted. Insight and judgment at this time are noted to be still impaired. Coping skills are noted to be poor. The patient has been pacing on the unit. Personal hygiene is noted to be very poor. The patient tends to be very aggressive and is demanding that he needs to return back to the placement. ASSESSMENT: The patient is still psychotic and impulsive. PLAN: To continue the patient with the supportive therapy and followup. JOB# [id number]
--- NOTE | 2017-12-11 08:47 | General Progress Note ---
Subjective - Review of Systems Service Date: 12/11/17 Subjective: I am fine Objective - Results Recent Labs: Laboratory Last Values Urine Source RANDOM 12/04/17 22:00 Urine Color YELLOW 12/04/17 22:00 Urine Clarity c (CLEAR) 12/04/17 22:00 Urine pH 6.0 (4.6 - 8.0) 12/04/17 22:00 Ur Specific [place] <= 1.005 (1.005-1.030) 12/04/17 22:00 Urine Protein NEGATIVE mg/dL (NEGATIVE) 12/04/17 22:00 Urine Glucose (UA) NEGATIVE mg/dL (NEGATIVE) 12/04/17 22:00 Urine Ketones NEGATIVE mg/dL (NEGATIVE) 12/04/17 22:00 Urine Blood NEGATIVE (NEGATIVE) 12/04/17 22:00 Urine Nitrate NEGATIVE (NEGATIVE) 12/04/17 22:00 Urine Bilirubin NEGATIVE (NEGATIVE) 12/04/17 22:00 Urine Urobilinogen 0.2 E.U./dL (0.2 - 1.0) 12/04/17 22:00 Ur Leukocyte Esterase NEGATIVE (NEGATIVE) 12/04/17 22:00 Urine RBC 0-2 /hpf (0-5) H 12/04/17 22:00 Urine WBC 2-5 /hpf (0-5) H 12/04/17 22:00 Ur Epithelial Cells RARE /lpf (FEW) 12/04/17 22:00 Urine Bacteria FEW /hpf (NONE SEEN) 12/04/17 22:00 - Physical Exam Vitals and I&O: Vital Signs Temp 97.6 F 12/11/17 06:23 Pulse 68 12/11/17 06:23 Resp 20 12/11/17 06:23 BP 133/82 12/11/17 06:23 Pulse Ox 96 12/11/17 06:23 Intake & Output 12/10/17 12/11/17 12/11/17 18:59 06:59 18:59 Intake Total 2700 1120 Balance 2700 1120 Intake: Oral 2700 1120 Other: # Voids 4 2 # Bowel Movements 0 Active Medications: Current Medications Acetaminophen (Tylenol Extra Strength) 500 mg PO Q4HR PRN PRN Reason: Pain (Mild) Stop: 02/03/18 00:25 Al Hydrox/Mg Hydrox/Simethicone (Maalox) 30 ml PO Q4H PRN PRN Reason: GI DISTRESS Stop: 02/03/18 00:25 Albuterol/Ipratropium (Duoneb Neb) 3 ml HHN Q4HR PRN PRN Reason: Shortness of Breath Stop: 02/03/18 00:25 Last Admin: 12/05/17 21:11 Dose: 3 ml Artificial Tears (Artificial Tears Ophth Soln) 1 drop EACH EYE Q4H PRN PRN Reason: Dry Eye Stop: 02/03/18 00:31 Ascorbic Acid (Vitamin C) 500 mg PO BID LACHO Stop: 02/03/18 08:59 Last Admin: 12/10/17 17:16 Dose: 500 mg Aspirin (Aspirin Chewable) 81 mg PO DAILY LACHO Stop: 02/03/18 08:59 Last Admin: 12/10/17 08:58 Dose: 81 mg Baclofen (Lioresal) 10 mg PO QID LACHO Stop: 02/03/18 08:59 Last Admin: 12/10/17 21:30 Dose: 10 mg Benztropine Mesylate (Cogentin) 1 mg PO BID LACHO Stop: 02/03/18 08:59 Last Admin: 12/10/17 17:16 Dose: 1 mg Betamethasone/Clotrimazole (Lotrisone Cream) 1 appl TP Q12HR LACHO Stop: 02/08/18 20:59 Last Admin: 12/10/17 21:30 Dose: 1 appl Bisacodyl (Dulcolax 10 Mg Supp) 10 mg RC DAILY PRN PRN Reason: Constipation Stop: 02/03/18 00:25 [place] Oil/[place] Balsam/Trypsin (Venelex) 1 appl TP DAILY LACHO Stop: 02/06/18 08:59 Last Admin: 12/10/17 14:05 Dose: 1 appl Docusate Sodium (Colace) 250 mg PO DAILY LACHO Stop: 02/03/18 08:59 Last Admin: 12/10/17 08:57 Dose: 250 mg Lorazepam (Ativan) 0.5 mg PO Q6HR PRN; Protocol PRN Reason: Agitation Stop: 02/03/18 00:21 Last Admin: 12/10/17 21:30 Dose: 0.5 mg Magnesium Hydroxide (Milk Of Magnesia) 30 ml PO DAILY PRN PRN Reason: Constipation Stop: 02/03/18 00:25 Naproxen (Naprosyn) 250 mg PO Q4H PRN PRN Reason: Pain (Moderate) Stop: 02/03/18 00:25 Oxcarbazepine (Trileptal) 150 mg PO Q12H LACHO PRN Reason: Protocol Stop: 02/03/18 20:59 Last Admin: 12/10/17 21:30 Dose: 150 mg Risperidone (Risperdal) 4 mg PO BID LACHO PRN Reason: Protocol Stop: 02/03/18 08:59 Last Admin: 12/10/17 17:16 Dose: 4 mg Trazodone HCl (Desyrel) 50 mg PO HS LACHO PRN Reason: Protocol Stop: 02/03/18 20:59 Last Admin: 12/10/17 21:30 Dose: 50 mg General: Alert, Other (Confused) HEENT: Atraumatic Neck: Supple Cardiovascular: Regular rate Lungs: Clear to auscultation Abdomen: Bowel sounds Extremities: Other (Ulcer in right foot) Neurological: Normal gait Skin: Other (Ulcer right foot) Psych/Mental Status: no Other (Confused not oriented) Assessment/Plan - Assessment Assessment: Patient is awake, Calm in no acute distress. Dx: Aggressive behavior, Foot ulcer. - Plan Plan: Patient under psychiatric care. Will continue with SNF meds. Nutritional Asmnt/Malnutr-PDOC - Dietary Evaluation Malnutrition Findings (Please click <Entered> for more info): Nutritional Asmnt/Malnutrition Start: 12/08/17 14: 30 Text: Status: Complete Freq: Document 12/08/17 14:30 OBIE (Rec: 12/08/17 14:36 LEVAR [email or web address]) Nutritional Asmnt/Malnutrition Patient General Information Nutritional Screening High Risk Consult Diagnosis psychosis Pertinent Medical Hx/Surgical Hx schizophrenia, left foot ulcer Subjective Information Pt seen resting in bed at time of visit. Per notes, PO intake 100% of all meals. Current Diet Order/ Nutrition Support mech soft chopped Pertinent Medications vitamin c, colace Pertinent Labs no nutrition related labs Nutritional Hx/Data Height 1.91 m Height (Calculated Centimeters) 190.5 Current Weight (lbs) 135.171 kg Weight (Calculated Kilograms) 135.2 Weight (Calculated Grams) 260498.5 [place] Body Weight 196 % [place] Body Weight 152 Body Mass Index (BMI) 37.2 Weight Status Obese GI Symptoms GI Symptoms None Last BM 12/07 Difficult in: None Skin Integrity/Comment: ulcer on right heel, decubitus pressure area to right foot Estimated Nutritional Goals BEE in Kcals: Adj wt of IBW Calories/Kcals/Kg 25-30 based on adj wt 101kg Kcals Calculated 0064-5568 Protein: Adj wt of IBW Protein g/k-1.2 Protein Calculated 101-121 Fluid: ml 2525-3030ml (1ml/kcal) Nutritional Problem 1. Problem Problem increased nutrition needs ( protein) Etiology increased metabolic demand for wound healing Signs/Symptoms: ulcer on right heel Malnutrition Alert Protein-Calorie Malnutrition N/A Is there a minimum of two criteria No selected? Query Text:Check all the applicable criteria. A minimum of two criteria are recommended for diagnosis of either severe or non-severe malnutrition. Intervention/Recommendation Comments 1. Continue with current diet as ordered. 2. Monitor PO intake, wt, labs and skin integrity 3. F/U as low risk in 7 days, 12/15 Expected Outcomes/Goals Expected Outcomes/Goals 1. PO intake to meet at least 75% of nutritional needs. 2. Wt stability, skin to remain intact, labs WNL
[2017-12-11] MEDS: Benztropine 1 MG TAB PO SCH ×2 (09:11→16:31)
[2017-12-11] MEDS: Aspirin 81mg Chewable Tab PO SCH (09:11)
[2017-12-11] MEDS: Multivitamin w/ Minerals Tab PO SCH (09:11)
[2017-12-11] MEDS: risperiDONE 4 mg Tab PO SCH ×2 (09:11→16:31)
[2017-12-11] MEDS: Venelex 60gm Tube TP SCH (09:12)
[2017-12-11] MEDS: Betamethasone/Clotrimazole Cream 15 gm Tube TP SCH ×3 (09:12→20:59)
--- NOTE | 2017-12-11 22:06 | Progress Notes ---
DATE: 12/11/2017 SUBJECTIVE: Staff was spoken to. The patient is interviewed. Mood is noted to be anxious and depressed. The patient is stating that he has been doing well in here, but could not figure it out why the facility is not going to be giving him a chance to be back. Insight and judgment at this time are noted to be still impaired. Coping skills are noted to be improving, but the patient is isolated today. ASSESSMENT: The patient is being closely monitored for his mood swings. PLAN: To continue the patient with supportive therapy and follow up. JOB# [id number]
[2017-12-12] MEDS: Multivitamin w/ Minerals Tab PO SCH (08:47)
[2017-12-12] MEDS: Benztropine 1 MG TAB PO SCH ×2 (08:47→16:49)
[2017-12-12] MEDS: risperiDONE 4 mg Tab PO SCH ×2 (08:47→16:49)
[2017-12-12] MEDS: Venelex 60gm Tube TP SCH (08:48)
[2017-12-12] MEDS: Betamethasone/Clotrimazole Cream 15 gm Tube TP SCH ×2 (08:48→21:47)
[2017-12-12] MEDS: Aspirin 81mg Chewable Tab PO SCH (08:48)
--- NOTE | 2017-12-12 10:17 | General Progress Note ---
Subjective - Review of Systems Service Date: 12/12/17 Subjective: I am fine Objective - Results Recent Labs: Laboratory Last Values Urine Source RANDOM 12/04/17 22:00 Urine Color YELLOW 12/04/17 22:00 Urine Clarity c (CLEAR) 12/04/17 22:00 Urine pH 6.0 (4.6 - 8.0) 12/04/17 22:00 Ur Specific [place] <= 1.005 (1.005-1.030) 12/04/17 22:00 Urine Protein NEGATIVE mg/dL (NEGATIVE) 12/04/17 22:00 Urine Glucose (UA) NEGATIVE mg/dL (NEGATIVE) 12/04/17 22:00 Urine Ketones NEGATIVE mg/dL (NEGATIVE) 12/04/17 22:00 Urine Blood NEGATIVE (NEGATIVE) 12/04/17 22:00 Urine Nitrate NEGATIVE (NEGATIVE) 12/04/17 22:00 Urine Bilirubin NEGATIVE (NEGATIVE) 12/04/17 22:00 Urine Urobilinogen 0.2 E.U./dL (0.2 - 1.0) 12/04/17 22:00 Ur Leukocyte Esterase NEGATIVE (NEGATIVE) 12/04/17 22:00 Urine RBC 0-2 /hpf (0-5) H 12/04/17 22:00 Urine WBC 2-5 /hpf (0-5) H 12/04/17 22:00 Ur Epithelial Cells RARE /lpf (FEW) 12/04/17 22:00 Urine Bacteria FEW /hpf (NONE SEEN) 12/04/17 22:00 - Physical Exam Vitals and I&O: Vital Signs Temp 97.4 F 12/11/17 15:40 Pulse 68 12/12/17 07:25 Resp 14 12/12/17 07:25 BP 167/98 12/11/17 15:40 Pulse Ox 95 12/12/17 07:25 Intake & Output 12/11/17 12/12/17 12/12/17 18:59 06:59 18:59 Intake Total 1200 Balance 1200 Intake: Oral 1200 Other: # Voids 3 # Bowel Movements 1 Active Medications: Current Medications Acetaminophen (Tylenol Extra Strength) 500 mg PO Q4HR PRN PRN Reason: Pain (Mild) Stop: 02/03/18 00:25 Al Hydrox/Mg Hydrox/Simethicone (Maalox) 30 ml PO Q4H PRN PRN Reason: GI DISTRESS Stop: 02/03/18 00:25 Albuterol/Ipratropium (Duoneb Neb) 3 ml HHN Q4HR PRN PRN Reason: Shortness of Breath Stop: 02/03/18 00:25 Last Admin: 12/05/17 21:11 Dose: 3 ml Artificial Tears (Artificial Tears Ophth Soln) 1 drop EACH EYE Q4H PRN PRN Reason: Dry Eye Stop: 02/03/18 00:31 Last Admin: 12/11/17 16:31 Dose: 1 drop Ascorbic Acid (Vitamin C) 500 mg PO BID [facility] Stop: 02/03/18 08:59 Last Admin: 12/12/17 08:47 Dose: 500 mg Aspirin (Aspirin Chewable) 81 mg PO DAILY [facility] Stop: 02/03/18 08:59 Last Admin: 12/12/17 08:48 Dose: 81 mg Baclofen (Lioresal) 10 mg PO QID [facility] Stop: 02/03/18 08:59 Last Admin: 12/12/17 08:47 Dose: 10 mg Benztropine Mesylate (Cogentin) 1 mg PO BID [facility] Stop: 02/03/18 08:59 Last Admin: 12/12/17 08:47 Dose: 1 mg Betamethasone/Clotrimazole (Lotrisone Cream) 1 appl TP Q12HR [facility] Stop: 02/08/18 20:59 Last Admin: 12/12/17 08:48 Dose: 1 appl Bisacodyl (Dulcolax 10 Mg Supp) 10 mg RC DAILY PRN PRN Reason: Constipation Stop: 02/03/18 00:25 [place] Oil/[place] Balsam/Trypsin (Venelex) 1 appl TP DAILY [facility] Stop: 02/06/18 08:59 Last Admin: 12/12/17 08:48 Dose: 1 appl Docusate Sodium (Colace) 250 mg PO DAILY [facility] Stop: 02/03/18 08:59 Last Admin: 12/12/17 08:47 Dose: 250 mg Lorazepam (Ativan) 0.5 mg PO Q6HR PRN; Protocol PRN Reason: Agitation Stop: 02/03/18 00:21 Last Admin: 12/10/17 21:30 Dose: 0.5 mg Magnesium Hydroxide (Milk Of Magnesia) 30 ml PO DAILY PRN PRN Reason: Constipation Stop: 02/03/18 00:25 Naproxen (Naprosyn) 250 mg PO Q4H PRN PRN Reason: Pain (Moderate) Stop: 02/03/18 00:25 Oxcarbazepine (Trileptal) 150 mg PO Q12H [facility] PRN Reason: Protocol Stop: 02/03/18 20:59 Last Admin: 12/12/17 08:47 Dose: 150 mg Risperidone (Risperdal) 4 mg PO BID [facility] PRN Reason: Protocol Stop: 02/03/18 08:59 Last Admin: 12/12/17 08:47 Dose: 4 mg Trazodone HCl (Desyrel) 50 mg PO HS [facility] PRN Reason: Protocol Stop: 02/03/18 20:59 Last Admin: 12/11/17 20:57 Dose: 50 mg General: Alert, Other (Confused) HEENT: Atraumatic Neck: Supple Cardiovascular: Regular rate Lungs: Clear to auscultation Abdomen: Bowel sounds Extremities: Other (Ulcer in right foot) Neurological: Normal gait Skin: Other (Ulcer right foot) Psych/Mental Status: no Other (Confused not oriented) Assessment/Plan - Assessment Assessment: Patient is awake, Calm in no acute distress. Dx: Aggressive behavior, Foot ulcer. - Plan Plan: Patient under psychiatric care. Will continue with SNF meds. Nutritional Asmnt/Malnutr-PDOC - Dietary Evaluation Malnutrition Findings (Please click <Entered> for more info): Nutritional Asmnt/Malnutrition Start: 12/08/17 14: 30 Text: Status: Complete Freq: Document 12/08/17 14:30 LCLEVARG (Rec: 12/08/17 14:36 LCLEVARG [email or web address]) Nutritional Asmnt/Malnutrition Patient General Information Nutritional Screening High Risk Consult Diagnosis psychosis Pertinent Medical Hx/Surgical Hx schizophrenia, left foot ulcer Subjective Information Pt seen resting in bed at time of visit. Per notes, PO intake 100% of all meals. Current Diet Order/ Nutrition Support mech soft chopped Pertinent Medications vitamin c, colace Pertinent Labs no nutrition related labs Nutritional Hx/Data Height 1.91 m Height (Calculated Centimeters) 190.5 Current Weight (lbs) 135.171 kg Weight (Calculated Kilograms) 135.2 Weight (Calculated Grams) 997574.5 [place] Body Weight 196 % [place] Body Weight 152 Body Mass Index (BMI) 37.2 Weight Status Obese GI Symptoms GI Symptoms None Last BM 12/07 Difficult in: None Skin Integrity/Comment: ulcer on right heel, decubitus pressure area to right foot Estimated Nutritional Goals BEE in Kcals: Adj wt of IBW Calories/Kcals/Kg 25-30 based on adj wt 101kg Kcals Calculated 4784-8435 Protein: Adj wt of IBW Protein g/k-1.2 Protein Calculated 101-121 Fluid: ml 2525-3030ml (1ml/kcal) Nutritional Problem 1. Problem Problem increased nutrition needs ( protein) Etiology increased metabolic demand for wound healing Signs/Symptoms: ulcer on right heel Malnutrition Alert Protein-Calorie Malnutrition N/A Is there a minimum of two criteria No selected? Query Text:Check all the applicable criteria. A minimum of two criteria are recommended for diagnosis of either severe or non-severe malnutrition. Intervention/Recommendation Comments 1. Continue with current diet as ordered. 2. Monitor PO intake, wt, labs and skin integrity 3. F/U as low risk in 7 days, 12/15 Expected Outcomes/Goals Expected Outcomes/Goals 1. PO intake to meet at least 75% of nutritional needs. 2. Wt stability, skin to remain intact, labs WNL
--- NOTE | 2017-12-12 11:59 | Progress Notes ---
DATE: 12/12/2017 Staff was spoken to. The patient is interviewed. Mood is noted to be irritable. Affect is constricted. Coping skills are noted to be still poor. The patient has been having difficult time to accept the fact that he might not be accepted back at the facility. The patient has mood swings. Coping skills are noted to be very poor, but patient has been able to verbalize the concerns rather than to act out. Plan to work with the case fitter with regards to placement. JOB# [id number]
[2017-12-12] MEDS: Albuterol/Ipratropium Neb 3 ML AERS HHN PRN (21:02)
--- NOTE | 2017-12-13 09:25 | Progress Notes ---
DATE: 12/13/2017 SUBJECTIVE: Staff was spoken to. The patient is interviewed. Mood is noted to be irritable. Affect is constricted. Insight and judgment at this time are noted to be still impaired. Impulse control is noted to be limited. Coping skills are noted to be limited. The patient has been still irritable and angry. No side effects to the medications are noted. The patient is stating that he has been doing fairly well and needs to be out of here. ASSESSMENT: The patient's impulse control is coming under control. PLAN: To continue the patient with the supportive therapy and followup. JOB# [id number]
[2017-12-13] MEDS: Benztropine 1 MG TAB PO SCH ×2 (09:26→16:26)
[2017-12-13] MEDS: Venelex 60gm Tube TP SCH (09:26)
[2017-12-13] MEDS: risperiDONE 4 mg Tab PO SCH ×2 (09:26→16:26)
[2017-12-13] MEDS: Aspirin 81mg Chewable Tab PO SCH (09:26)
[2017-12-13] MEDS: Multivitamin w/ Minerals Tab PO SCH (09:26)
[2017-12-13] MEDS: Betamethasone/Clotrimazole Cream 15 gm Tube TP SCH ×2 (09:27→16:33)
--- NOTE | 2017-12-13 11:30 | General Progress Note ---
Subjective - Review of Systems Service Date: 12/13/17 Subjective: I am fine Objective - Results Recent Labs: Laboratory Last Values Urine Source RANDOM 12/04/17 22:00 Urine Color YELLOW 12/04/17 22:00 Urine Clarity c (CLEAR) 12/04/17 22:00 Urine pH 6.0 (4.6 - 8.0) 12/04/17 22:00 Ur Specific [place] <= 1.005 (1.005-1.030) 12/04/17 22:00 Urine Protein NEGATIVE mg/dL (NEGATIVE) 12/04/17 22:00 Urine Glucose (UA) NEGATIVE mg/dL (NEGATIVE) 12/04/17 22:00 Urine Ketones NEGATIVE mg/dL (NEGATIVE) 12/04/17 22:00 Urine Blood NEGATIVE (NEGATIVE) 12/04/17 22:00 Urine Nitrate NEGATIVE (NEGATIVE) 12/04/17 22:00 Urine Bilirubin NEGATIVE (NEGATIVE) 12/04/17 22:00 Urine Urobilinogen 0.2 E.U./dL (0.2 - 1.0) 12/04/17 22:00 Ur Leukocyte Esterase NEGATIVE (NEGATIVE) 12/04/17 22:00 Urine RBC 0-2 /hpf (0-5) H 12/04/17 22:00 Urine WBC 2-5 /hpf (0-5) H 12/04/17 22:00 Ur Epithelial Cells RARE /lpf (FEW) 12/04/17 22:00 Urine Bacteria FEW /hpf (NONE SEEN) 12/04/17 22:00 - Physical Exam Vitals and I&O: Vital Signs Temp 97.9 F 12/13/17 06:42 Pulse 50 12/13/17 06:42 Resp 20 12/13/17 06:42 BP 116/58 12/13/17 06:42 Pulse Ox 98 12/13/17 06:42 Intake & Output 12/12/17 12/13/17 12/13/17 18:59 06:59 18:59 Intake Total 1200 480 Balance 1200 480 Intake: Oral 1200 480 Other: # Voids 1 # Bowel Movements 1 Active Medications: Current Medications Acetaminophen (Tylenol Extra Strength) 500 mg PO Q4HR PRN PRN Reason: Pain (Mild) Stop: 02/03/18 00:25 Al Hydrox/Mg Hydrox/Simethicone (Maalox) 30 ml PO Q4H PRN PRN Reason: GI DISTRESS Stop: 02/03/18 00:25 Albuterol/Ipratropium (Duoneb Neb) 3 ml HHN Q4HR PRN PRN Reason: Shortness of Breath Stop: 02/03/18 00:25 Last Admin: 12/12/17 21:02 Dose: 3 ml Artificial Tears (Artificial Tears Ophth Soln) 1 drop EACH EYE Q4H PRN PRN Reason: Dry Eye Stop: 02/03/18 00:31 Last Admin: 12/11/17 16:31 Dose: 1 drop Ascorbic Acid (Vitamin C) 500 mg PO BID [facility] Stop: 02/03/18 08:59 Last Admin: 12/13/17 09:26 Dose: 500 mg Aspirin (Aspirin Chewable) 81 mg PO DAILY [facility] Stop: 02/03/18 08:59 Last Admin: 12/13/17 09:26 Dose: 81 mg Baclofen (Lioresal) 10 mg PO QID [facility] Stop: 02/03/18 08:59 Last Admin: 12/13/17 09:26 Dose: 10 mg Benztropine Mesylate (Cogentin) 1 mg PO BID [facility] Stop: 02/03/18 08:59 Last Admin: 12/13/17 09:26 Dose: 1 mg Betamethasone/Clotrimazole (Lotrisone Cream) 1 appl TP Q12HR [facility] Stop: 02/08/18 20:59 Last Admin: 12/13/17 09:27 Dose: 1 appl Betamethasone/Clotrimazole (Lotrisone Cream) 1 appl TP BID [facility] Stop: 02/11/18 16:59 Bisacodyl (Dulcolax 10 Mg Supp) 10 mg RC DAILY PRN PRN Reason: Constipation Stop: 02/03/18 00:25 [place] Oil/[place] Balsam/Trypsin (Venelex) 1 appl TP DAILY [facility] Stop: 02/06/18 08:59 Last Admin: 12/13/17 09:26 Dose: 1 appl Docusate Sodium (Colace) 250 mg PO DAILY [facility] Stop: 02/03/18 08:59 Last Admin: 12/13/17 09:26 Dose: 250 mg Magnesium Hydroxide (Milk Of Magnesia) 30 ml PO DAILY PRN PRN Reason: Constipation Stop: 02/03/18 00:25 Naproxen (Naprosyn) 250 mg PO Q4H PRN PRN Reason: Pain (Moderate) Stop: 02/03/18 00:25 Oxcarbazepine (Trileptal) 150 mg PO Q12H [facility] PRN Reason: Protocol Stop: 02/03/18 20:59 Last Admin: 12/13/17 09:26 Dose: 150 mg Risperidone (Risperdal) 4 mg PO BID [facility] PRN Reason: Protocol Stop: 02/03/18 08:59 Last Admin: 12/13/17 09:26 Dose: 4 mg Trazodone HCl (Desyrel) 50 mg PO HS [facility] PRN Reason: Protocol Stop: 02/03/18 20:59 Last Admin: 12/12/17 21:46 Dose: 50 mg Trimethoprim/Sulfamethoxazole (Bactrim Ds) 1 tab PO BID [facility] Stop: 02/11/18 16:59 General: Alert, Other (Confused) HEENT: Atraumatic Neck: Supple Cardiovascular: Regular rate Lungs: Clear to auscultation Abdomen: Bowel sounds Extremities: Other (Ulcer in right foot) Neurological: Normal gait Skin: Other (Ulcer right foot) Psych/Mental Status: no Other (Confused not oriented) Assessment/Plan - Assessment Assessment: Patient is awake, Calm in no acute distress. Dx: Aggressive behavior, , cellulites, Foot ulcer. - Plan Plan: Patient under psychiatric care. Will continue with SNF meds. Nutritional Asmnt/Malnutr-PDOC - Dietary Evaluation Malnutrition Findings (Please click <Entered> for more info): Nutritional Asmnt/Malnutrition Start: 12/08/17 14: 30 Text: Status: Complete Freq: Document 12/08/17 14:30 LEVAR (Rec: 12/08/17 14:36 LEVAR [email or web address]) Nutritional Asmnt/Malnutrition Patient General Information Nutritional Screening High Risk Consult Diagnosis psychosis Pertinent Medical Hx/Surgical Hx schizophrenia, left foot ulcer Subjective Information Pt seen resting in bed at time of visit. Per notes, PO intake 100% of all meals. Current Diet Order/ Nutrition Support mech soft chopped Pertinent Medications vitamin c, colace Pertinent Labs no nutrition related labs Nutritional Hx/Data Height 1.91 m Height (Calculated Centimeters) 190.5 Current Weight (lbs) 135.171 kg Weight (Calculated Kilograms) 135.2 Weight (Calculated Grams) 045323.5 [place] Body Weight 196 % [place] Body Weight 152 Body Mass Index (BMI) 37.2 Weight Status Obese GI Symptoms GI Symptoms None Last BM 12/07 Difficult in: None Skin Integrity/Comment: ulcer on right heel, decubitus pressure area to right foot Estimated Nutritional Goals BEE in Kcals: Adj wt of IBW Calories/Kcals/Kg 25-30 based on adj wt 101kg Kcals Calculated 7632-1734 Protein: Adj wt of IBW Protein g/k-1.2 Protein Calculated 101-121 Fluid: ml 2525-3030ml (1ml/kcal) Nutritional Problem 1. Problem Problem increased nutrition needs ( protein) Etiology increased metabolic demand for wound healing Signs/Symptoms: ulcer on right heel Malnutrition Alert Protein-Calorie Malnutrition N/A Is there a minimum of two criteria No selected? Query Text:Check all the applicable criteria. A minimum of two criteria are recommended for diagnosis of either severe or non-severe malnutrition. Intervention/Recommendation Comments 1. Continue with current diet as ordered. 2. Monitor PO intake, wt, labs and skin integrity 3. F/U as low risk in 7 days, 12/15 Expected Outcomes/Goals Expected Outcomes/Goals 1. PO intake to meet at least 75% of nutritional needs. 2. Wt stability, skin to remain intact, labs WNL
[2017-12-13] MEDS: Sulfamethoxazole/TMP 800/160mg Tab PO SCH (16:25)
[2017-12-13] MEDS ORDERED: Betamethasone/Clotrimazole Cream 15 gm Tube TP SCH (17:00)
--- NOTE | 2017-12-14 08:47 | General Progress Note ---
Subjective - Review of Systems Service Date: 12/14/17 Subjective: I want leave this place Objective - Results Recent Labs: Laboratory Last Values Urine Source RANDOM 12/04/17 22:00 Urine Color YELLOW 12/04/17 22:00 Urine Clarity c (CLEAR) 12/04/17 22:00 Urine pH 6.0 (4.6 - 8.0) 12/04/17 22:00 Ur Specific [place] <= 1.005 (1.005-1.030) 12/04/17 22:00 Urine Protein NEGATIVE mg/dL (NEGATIVE) 12/04/17 22:00 Urine Glucose (UA) NEGATIVE mg/dL (NEGATIVE) 12/04/17 22:00 Urine Ketones NEGATIVE mg/dL (NEGATIVE) 12/04/17 22:00 Urine Blood NEGATIVE (NEGATIVE) 12/04/17 22:00 Urine Nitrate NEGATIVE (NEGATIVE) 12/04/17 22:00 Urine Bilirubin NEGATIVE (NEGATIVE) 12/04/17 22:00 Urine Urobilinogen 0.2 E.U./dL (0.2 - 1.0) 12/04/17 22:00 Ur Leukocyte Esterase NEGATIVE (NEGATIVE) 12/04/17 22:00 Urine RBC 0-2 /hpf (0-5) H 12/04/17 22:00 Urine WBC 2-5 /hpf (0-5) H 12/04/17 22:00 Ur Epithelial Cells RARE /lpf (FEW) 12/04/17 22:00 Urine Bacteria FEW /hpf (NONE SEEN) 12/04/17 22:00 - Physical Exam Vitals and I&O: Vital Signs Temp 97.9 F 12/14/17 06:10 Pulse 60 12/14/17 06:10 Resp 20 12/14/17 06:10 BP 125/72 12/14/17 06:10 Pulse Ox 96 12/14/17 06:10 Intake & Output 12/13/17 12/14/17 12/14/17 18:59 06:59 18:59 Intake Total 900 360 Balance 900 360 Intake: Oral 900 360 Other: # Voids 2 1 # Bowel Movements 1 Active Medications: Current Medications Acetaminophen (Tylenol Extra Strength) 500 mg PO Q4HR PRN PRN Reason: Pain (Mild) Stop: 02/03/18 00:25 Al Hydrox/Mg Hydrox/Simethicone (Maalox) 30 ml PO Q4H PRN PRN Reason: GI DISTRESS Stop: 02/03/18 00:25 Albuterol/Ipratropium (Duoneb Neb) 3 ml HHN Q4HR PRN PRN Reason: Shortness of Breath Stop: 02/03/18 00:25 Last Admin: 12/12/17 21:02 Dose: 3 ml Artificial Tears (Artificial Tears Ophth Soln) 1 drop EACH EYE Q4H PRN PRN Reason: Dry Eye Stop: 02/03/18 00:31 Last Admin: 12/11/17 16:31 Dose: 1 drop Ascorbic Acid (Vitamin C) 500 mg PO BID [facility] Stop: 02/03/18 08:59 Last Admin: 12/13/17 16:26 Dose: 500 mg Aspirin (Aspirin Chewable) 81 mg PO DAILY [facility] Stop: 02/03/18 08:59 Last Admin: 12/13/17 09:26 Dose: 81 mg Baclofen (Lioresal) 10 mg PO QID [facility] Stop: 02/03/18 08:59 Last Admin: 12/13/17 20:35 Dose: 10 mg Benztropine Mesylate (Cogentin) 1 mg PO BID [facility] Stop: 02/03/18 08:59 Last Admin: 12/13/17 16:26 Dose: 1 mg Betamethasone/Clotrimazole (Lotrisone Cream) 1 appl TP BID [facility] Stop: 02/08/18 20:59 Last Admin: 12/13/17 16:33 Dose: Not Given Bisacodyl (Dulcolax 10 Mg Supp) 10 mg RC DAILY PRN PRN Reason: Constipation Stop: 02/03/18 00:25 [place] Oil/[place] Balsam/Trypsin (Venelex) 1 appl TP DAILY [facility] Stop: 02/06/18 08:59 Last Admin: 12/13/17 09:26 Dose: 1 appl Docusate Sodium (Colace) 250 mg PO DAILY [facility] Stop: 02/03/18 08:59 Last Admin: 12/13/17 09:26 Dose: 250 mg Magnesium Hydroxide (Milk Of Magnesia) 30 ml PO DAILY PRN PRN Reason: Constipation Stop: 02/03/18 00:25 Naproxen (Naprosyn) 250 mg PO Q4H PRN PRN Reason: Pain (Moderate) Stop: 02/03/18 00:25 Oxcarbazepine (Trileptal) 150 mg PO Q12H [facility] PRN Reason: Protocol Stop: 02/03/18 20:59 Last Admin: 12/13/17 20:35 Dose: 150 mg Risperidone (Risperdal) 4 mg PO BID [facility] PRN Reason: Protocol Stop: 02/03/18 08:59 Last Admin: 12/13/17 16:26 Dose: 4 mg Trazodone HCl (Desyrel) 50 mg PO HS [facility] PRN Reason: Protocol Stop: 02/03/18 20:59 Last Admin: 12/13/17 20:35 Dose: 50 mg Trimethoprim/Sulfamethoxazole (Bactrim Ds) 1 tab PO BID [facility] Stop: 02/11/18 16:59 Last Admin: 12/13/17 16:25 Dose: 1 tab General: Alert, Other (Confused) HEENT: Atraumatic Neck: Supple Cardiovascular: Regular rate Lungs: Clear to auscultation Abdomen: Bowel sounds Extremities: Other (Ulcer in right foot) Neurological: Normal gait Skin: Other (Ulcer right foot) Psych/Mental Status: no Other (Confused not oriented) Assessment/Plan - Assessment Assessment: Patient is awake, Calm in no acute distress. Dx: Aggressive behavior, , cellulites, Foot ulcer. - Plan Plan: Patient under psychiatric care. Will continue with SNF meds. Nutritional Asmnt/Malnutr-PDOC - Dietary Evaluation Malnutrition Findings (Please click <Entered> for more info): Nutritional Asmnt/Malnutrition Start: 12/08/17 14: 30 Text: Status: Complete Freq: Document 12/08/17 14:30 RUDY (Rec: 12/08/17 14:36 LEVAR [email or web address]) Nutritional Asmnt/Malnutrition Patient General Information Nutritional Screening High Risk Consult Diagnosis psychosis Pertinent Medical Hx/Surgical Hx schizophrenia, left foot ulcer Subjective Information Pt seen resting in bed at time of visit. Per notes, PO intake 100% of all meals. Current Diet Order/ Nutrition Support mech soft chopped Pertinent Medications vitamin c, colace Pertinent Labs no nutrition related labs Nutritional Hx/Data Height 1.91 m Height (Calculated Centimeters) 190.5 Current Weight (lbs) 135.171 kg Weight (Calculated Kilograms) 135.2 Weight (Calculated Grams) 394331.5 [place] Body Weight 196 % [place] Body Weight 152 Body Mass Index (BMI) 37.2 Weight Status Obese GI Symptoms GI Symptoms None Last BM 12/07 Difficult in: None Skin Integrity/Comment: ulcer on right heel, decubitus pressure area to right foot Estimated Nutritional Goals BEE in Kcals: Adj wt of IBW Calories/Kcals/Kg 25-30 based on adj wt 101kg Kcals Calculated 5342-0790 Protein: Adj wt of IBW Protein g/k-1.2 Protein Calculated 101-121 Fluid: ml 2525-3030ml (1ml/kcal) Nutritional Problem 1. Problem Problem increased nutrition needs ( protein) Etiology increased metabolic demand for wound healing Signs/Symptoms: ulcer on right heel Malnutrition Alert Protein-Calorie Malnutrition N/A Is there a minimum of two criteria No selected? Query Text:Check all the applicable criteria. A minimum of two criteria are recommended for diagnosis of either severe or non-severe malnutrition. Intervention/Recommendation Comments 1. Continue with current diet as ordered. 2. Monitor PO intake, wt, labs and skin integrity 3. F/U as low risk in 7 days, 12/15 Expected Outcomes/Goals Expected Outcomes/Goals 1. PO intake to meet at least 75% of nutritional needs. 2. Wt stability, skin to remain intact, labs WNL
[2017-12-14] MEDS: Aspirin 81mg Chewable Tab PO SCH (15:43)
[2017-12-14] MEDS ORDERED: Probiotic Screen MC PRN (15:44)
[2017-12-14] MEDS: Venelex 60gm Tube TP SCH (15:44)
[2017-12-14] MEDS: Benztropine 1 MG TAB PO SCH (15:44)
[2017-12-14] MEDS: Betamethasone/Clotrimazole Cream 15 gm Tube TP SCH (15:45)
[2017-12-14] MEDS: risperiDONE 4 mg Tab PO SCH (15:46)
[2017-12-14] MEDS: Multivitamin w/ Minerals Tab PO SCH (15:46)
[2017-12-14] MEDS: Sulfamethoxazole/TMP 800/160mg Tab PO SCH (15:47)
--- NOTE | 2017-12-14 20:21 | Progress Notes ---
DATE: 12/14/2017 SUBJECTIVE: Staff was spoken to. The patient is interviewed. Mood is noted to be irritable. The patient is stating that he is supposed to be back at the facility and case preparer and liner has been informed. She has been trying to work with the facility to see if they are going to be accepting the patient back. The patient's coping skills are noted to still poor. Impulsivity, however, has been coming down compared to the time of the admission. PLAN: To closely monitor the patient. I encouraged the patient to verbalize the concerns and work with the case preparer and liner for the discharge. JOB# [id number]
[2017-12-15] MEDS: Multivitamin w/ Minerals Tab PO SCH (09:29)
[2017-12-15] MEDS: Sulfamethoxazole/TMP 800/160mg Tab PO SCH ×2 (09:29→17:56)
[2017-12-15] MEDS: Lactobacillus Rhamnosus GG 15 Billion CFU CAP.SPRINK PO SCH (09:29)
[2017-12-15] MEDS: Benztropine 1 MG TAB PO SCH ×2 (09:29→17:57)
[2017-12-15] MEDS: risperiDONE 4 mg Tab PO SCH ×2 (09:29→17:56)
[2017-12-15] MEDS: Aspirin 81mg Chewable Tab PO SCH (09:29)
[2017-12-15] MEDS: Albuterol/Ipratropium Neb 3 ML AERS HHN PRN (15:47)
[2017-12-15] MEDS: Betamethasone/Clotrimazole Cream 15 gm Tube TP SCH (17:58)
[2017-12-15] MEDS: Venelex 60gm Tube TP SCH (17:58)
--- NOTE | 2017-12-16 03:34 | Progress Notes ---
DATE: 12/15/2017 SUBJECTIVE: Staff was spoken to. The patient is interviewed. Mood is noted to be irritable. Affect is constricted. Insight is reported to be extremely poor. The patient is reported to have been evaluated for placement, but the patient got out of control and the placement staff not want to take the risk and take the patient and the patient is going to be looked into placement at a different facility. ASSESSMENT: The patient is still having acute mood swings and impulsivity and is not ready to be discharged to a lower level of care. PLAN: To continue the patient, who is also on carbamazepine, which is going to be gradually increased to 300 mg from 150 mg and the patient is going to be followed up with the supportive therapy. JOB# [id number]
[2017-12-16] MEDS: Aspirin 81mg Chewable Tab PO SCH (08:27)
[2017-12-16] MEDS: Benztropine 1 MG TAB PO SCH ×2 (08:28→16:20)
[2017-12-16] MEDS: risperiDONE 4 mg Tab PO SCH ×2 (08:28→16:21)
[2017-12-16] MEDS: Sulfamethoxazole/TMP 800/160mg Tab PO SCH ×2 (08:28→16:22)
[2017-12-16] MEDS: Lactobacillus Rhamnosus GG 15 Billion CFU CAP.SPRINK PO SCH (08:28)
[2017-12-16] MEDS: Multivitamin w/ Minerals Tab PO SCH (08:28)
[2017-12-16] MEDS: Betamethasone/Clotrimazole Cream 15 gm Tube TP SCH ×2 (08:29→16:20)
[2017-12-16] MEDS: Venelex 60gm Tube TP SCH (08:29)
--- NOTE | 2017-12-16 09:12 | General Progress Note ---
Subjective - Review of Systems Service Date: 12/16/17 Subjective: I want leave this place Objective - Results Recent Labs: Laboratory Last Values Urine Source RANDOM 12/04/17 22:00 Urine Color YELLOW 12/04/17 22:00 Urine Clarity c (CLEAR) 12/04/17 22:00 Urine pH 6.0 (4.6 - 8.0) 12/04/17 22:00 Ur Specific [place] <= 1.005 (1.005-1.030) 12/04/17 22:00 Urine Protein NEGATIVE mg/dL (NEGATIVE) 12/04/17 22:00 Urine Glucose (UA) NEGATIVE mg/dL (NEGATIVE) 12/04/17 22:00 Urine Ketones NEGATIVE mg/dL (NEGATIVE) 12/04/17 22:00 Urine Blood NEGATIVE (NEGATIVE) 12/04/17 22:00 Urine Nitrate NEGATIVE (NEGATIVE) 12/04/17 22:00 Urine Bilirubin NEGATIVE (NEGATIVE) 12/04/17 22:00 Urine Urobilinogen 0.2 E.U./dL (0.2 - 1.0) 12/04/17 22:00 Ur Leukocyte Esterase NEGATIVE (NEGATIVE) 12/04/17 22:00 Urine RBC 0-2 /hpf (0-5) H 12/04/17 22:00 Urine WBC 2-5 /hpf (0-5) H 12/04/17 22:00 Ur Epithelial Cells RARE /lpf (FEW) 12/04/17 22:00 Urine Bacteria FEW /hpf (NONE SEEN) 12/04/17 22:00 - Physical Exam Vitals and I&O: Vital Signs Temp 97 F 12/16/17 06:11 Pulse 78 12/16/17 06:11 Resp 20 12/16/17 06:11 BP 144/84 12/16/17 06:11 Pulse Ox 98 12/16/17 06:11 Intake & Output 12/15/17 12/16/17 12/16/17 18:59 06:59 18:59 Intake Total 260 Balance 260 Intake: Oral 260 Other: # Voids 1 # Bowel Movements 1 Active Medications: Current Medications Acetaminophen (Tylenol Extra Strength) 500 mg PO Q4HR PRN PRN Reason: Pain (Mild) Stop: 02/03/18 00:25 Last Admin: 12/14/17 20:44 Dose: 500 mg Al Hydrox/Mg Hydrox/Simethicone (Maalox) 30 ml PO Q4H PRN PRN Reason: GI DISTRESS Stop: 02/03/18 00:25 Albuterol/Ipratropium (Duoneb Neb) 3 ml HHN Q4HR PRN PRN Reason: Shortness of Breath Stop: 02/03/18 00:25 Last Admin: 12/15/17 15:47 Dose: 3 ml Artificial Tears (Artificial Tears Ophth Soln) 1 drop EACH EYE Q4H PRN PRN Reason: Dry Eye Stop: 02/03/18 00:31 Last Admin: 12/11/17 16:31 Dose: 1 drop Ascorbic Acid (Vitamin C) 500 mg PO BID [facility] Stop: 02/03/18 08:59 Last Admin: 12/16/17 08:28 Dose: 500 mg Aspirin (Aspirin Chewable) 81 mg PO DAILY [facility] Stop: 02/03/18 08:59 Last Admin: 12/16/17 08:27 Dose: 81 mg Baclofen (Lioresal) 10 mg PO QID [facility] Stop: 02/03/18 08:59 Last Admin: 12/16/17 08:28 Dose: 10 mg Benztropine Mesylate (Cogentin) 1 mg PO BID [facility] Stop: 02/03/18 08:59 Last Admin: 12/16/17 08:28 Dose: 1 mg Betamethasone/Clotrimazole (Lotrisone Cream) 1 appl TP BID [facility] Stop: 02/08/18 20:59 Last Admin: 12/16/17 08:29 Dose: Not Given Bisacodyl (Dulcolax 10 Mg Supp) 10 mg RC DAILY PRN PRN Reason: Constipation Stop: 02/03/18 00:25 [place] Oil/[place] Balsam/Trypsin (Venelex) 1 appl TP DAILY [facility] Stop: 02/06/18 08:59 Last Admin: 12/16/17 08:29 Dose: Not Given Docusate Sodium (Colace) 250 mg PO DAILY [facility] Stop: 02/03/18 08:59 Last Admin: 12/16/17 08:29 Dose: 250 mg Lactobacillus Rhamnosus (Culturelle 15b) 1 each PO DAILY [facility] Stop: 02/13/18 08:59 Last Admin: 12/16/17 08:28 Dose: 1 each Magnesium Hydroxide (Milk Of Magnesia) 30 ml PO DAILY PRN PRN Reason: Constipation Stop: 02/03/18 00:25 Miscellaneous (Probiotic Screen) 1 ea MC PRN PRN PRN Reason: PROTOCOL Stop: 02/12/18 15:43 Naproxen (Naprosyn) 250 mg PO Q4H PRN PRN Reason: Pain (Moderate) Stop: 02/03/18 00:25 Oxcarbazepine (Trileptal) 300 mg PO Q12H [facility] PRN Reason: Protocol Stop: 02/14/18 20:59 Risperidone (Risperdal) 4 mg PO BID [facility] PRN Reason: Protocol Stop: 02/03/18 08:59 Last Admin: 12/16/17 08:28 Dose: 4 mg Trazodone HCl (Desyrel) 50 mg PO HS [facility] PRN Reason: Protocol Stop: 02/03/18 20:59 Last Admin: 12/15/17 20:23 Dose: 50 mg Trimethoprim/Sulfamethoxazole (Bactrim Ds) 1 tab PO BID [facility] Stop: 02/11/18 16:59 Last Admin: 12/16/17 08:28 Dose: 1 tab General: Alert, Other (Confused) HEENT: Atraumatic Neck: Supple Cardiovascular: Regular rate Lungs: Clear to auscultation Abdomen: Bowel sounds Extremities: Other (Ulcer in right foot) Neurological: Normal gait Skin: Other (Ulcer right foot) Psych/Mental Status: no Other (Confused not oriented) Assessment/Plan - Assessment Assessment: Patient is awake, Calm in no acute distress. Dx: Aggressive behavior, , cellulites, Foot ulcer. - Plan Plan: Patient under psychiatric care. Will continue with SNF meds. Nutritional Asmnt/Malnutr-PDOC - Dietary Evaluation Malnutrition Findings (Please click <Entered> for more info): Nutritional Asmnt/Malnutrition Start: 12/08/17 14: 30 Text: Status: Complete Freq: Document 12/08/17 14:30 RUDY (Rec: 12/08/17 14:36 RUDY [email or web address]) Nutritional Asmnt/Malnutrition Patient General Information Nutritional Screening High Risk Consult Diagnosis psychosis Pertinent Medical Hx/Surgical Hx schizophrenia, left foot ulcer Subjective Information Pt seen resting in bed at time of visit. Per notes, PO intake 100% of all meals. Current Diet Order/ Nutrition Support mech soft chopped Pertinent Medications vitamin c, colace Pertinent Labs no nutrition related labs Nutritional Hx/Data Height 1.91 m Height (Calculated Centimeters) 190.5 Current Weight (lbs) 135.171 kg Weight (Calculated Kilograms) 135.2 Weight (Calculated Grams) 876094.5 [place] Body Weight 196 % [place] Body Weight 152 Body Mass Index (BMI) 37.2 Weight Status Obese GI Symptoms GI Symptoms None Last BM 12/07 Difficult in: None Skin Integrity/Comment: ulcer on right heel, decubitus pressure area to right foot Estimated Nutritional Goals BEE in Kcals: Adj wt of IBW Calories/Kcals/Kg 25-30 based on adj wt 101kg Kcals Calculated 7161-0857 Protein: Adj wt of IBW Protein g/k-1.2 Protein Calculated 101-121 Fluid: ml 2525-3030ml (1ml/kcal) Nutritional Problem 1. Problem Problem increased nutrition needs ( protein) Etiology increased metabolic demand for wound healing Signs/Symptoms: ulcer on right heel Malnutrition Alert Protein-Calorie Malnutrition N/A Is there a minimum of two criteria No selected? Query Text:Check all the applicable criteria. A minimum of two criteria are recommended for diagnosis of either severe or non-severe malnutrition. Intervention/Recommendation Comments 1. Continue with current diet as ordered. 2. Monitor PO intake, wt, labs and skin integrity 3. F/U as low risk in 7 days, 12/15 Expected Outcomes/Goals Expected Outcomes/Goals 1. PO intake to meet at least 75% of nutritional needs. 2. Wt stability, skin to remain intact, labs WNL
--- NOTE | 2017-12-16 15:39 | Progress Notes ---
DATE: 12/16/2017 SUBJECTIVE: Staff are spoken to. Patient is interviewed. Mood is irritable. Affect is constricted. Insight and judgment at this time are noted to be very much impaired. Impulse control seems to be poor. Coping skills are noted to be poor. The patient has been having difficult time to cope with the stress. No side effects to the medications are noted. The patient; however, has been having acute mood swings. ASSESSMENT: The patient is still impulsive. PLAN: To continue the patient with the supportive therapy and await for placement. JOB# [id number]
--- NOTE | 2017-12-17 08:55 | General Progress Note ---
Subjective - Review of Systems Service Date: 12/17/17 Subjective: I want leave this place Objective - Results Recent Labs: Laboratory Last Values Urine Source RANDOM 12/04/17 22:00 Urine Color YELLOW 12/04/17 22:00 Urine Clarity c (CLEAR) 12/04/17 22:00 Urine pH 6.0 (4.6 - 8.0) 12/04/17 22:00 Ur Specific [place] <= 1.005 (1.005-1.030) 12/04/17 22:00 Urine Protein NEGATIVE mg/dL (NEGATIVE) 12/04/17 22:00 Urine Glucose (UA) NEGATIVE mg/dL (NEGATIVE) 12/04/17 22:00 Urine Ketones NEGATIVE mg/dL (NEGATIVE) 12/04/17 22:00 Urine Blood NEGATIVE (NEGATIVE) 12/04/17 22:00 Urine Nitrate NEGATIVE (NEGATIVE) 12/04/17 22:00 Urine Bilirubin NEGATIVE (NEGATIVE) 12/04/17 22:00 Urine Urobilinogen 0.2 E.U./dL (0.2 - 1.0) 12/04/17 22:00 Ur Leukocyte Esterase NEGATIVE (NEGATIVE) 12/04/17 22:00 Urine RBC 0-2 /hpf (0-5) H 12/04/17 22:00 Urine WBC 2-5 /hpf (0-5) H 12/04/17 22:00 Ur Epithelial Cells RARE /lpf (FEW) 12/04/17 22:00 Urine Bacteria FEW /hpf (NONE SEEN) 12/04/17 22:00 - Physical Exam Vitals and I&O: Vital Signs Temp 97.5 F 12/16/17 14:00 Pulse 84 12/16/17 14:00 Resp 20 12/16/17 14:00 BP 142/89 12/16/17 14:00 Pulse Ox 96 12/16/17 14:00 Intake & Output 12/16/17 12/17/17 12/17/17 18:59 06:59 18:59 Intake Total 900 Balance 900 Intake: Oral 900 Other: # Voids 4 # Bowel Movements 1 Active Medications: Current Medications Acetaminophen (Tylenol Extra Strength) 500 mg PO Q4HR PRN PRN Reason: Pain (Mild) Stop: 02/03/18 00:25 Last Admin: 12/14/17 20:44 Dose: 500 mg Al Hydrox/Mg Hydrox/Simethicone (Maalox) 30 ml PO Q4H PRN PRN Reason: GI DISTRESS Stop: 02/03/18 00:25 Albuterol/Ipratropium (Duoneb Neb) 3 ml HHN Q4HR PRN PRN Reason: Shortness of Breath Stop: 02/03/18 00:25 Last Admin: 12/15/17 15:47 Dose: 3 ml Artificial Tears (Artificial Tears Ophth Soln) 1 drop EACH EYE Q4H PRN PRN Reason: Dry Eye Stop: 02/03/18 00:31 Last Admin: 12/11/17 16:31 Dose: 1 drop Ascorbic Acid (Vitamin C) 500 mg PO BID [facility] Stop: 02/03/18 08:59 Last Admin: 12/16/17 16:21 Dose: 500 mg Aspirin (Aspirin Chewable) 81 mg PO DAILY [facility] Stop: 02/03/18 08:59 Last Admin: 12/16/17 08:27 Dose: 81 mg Baclofen (Lioresal) 10 mg PO QID [facility] Stop: 02/03/18 08:59 Last Admin: 12/16/17 22:04 Dose: 10 mg Benztropine Mesylate (Cogentin) 1 mg PO BID [facility] Stop: 02/03/18 08:59 Last Admin: 12/16/17 16:20 Dose: 1 mg Betamethasone/Clotrimazole (Lotrisone Cream) 1 appl TP BID [facility] Stop: 02/08/18 20:59 Last Admin: 12/16/17 16:20 Dose: Not Given Bisacodyl (Dulcolax 10 Mg Supp) 10 mg RC DAILY PRN PRN Reason: Constipation Stop: 02/03/18 00:25 [place] Oil/[place]ra[place] Balsam/Trypsin (Venelex) 1 appl TP DAILY [facility] Stop: 02/06/18 08:59 Last Admin: 12/16/17 08:29 Dose: Not Given Docusate Sodium (Colace) 250 mg PO DAILY [facility] Stop: 02/03/18 08:59 Last Admin: 12/16/17 08:29 Dose: 250 mg Lactobacillus Rhamnosus (Culturelle 15b) 1 each PO DAILY [facility] Stop: 02/13/18 08:59 Last Admin: 12/16/17 08:28 Dose: 1 each Magnesium Hydroxide (Milk Of Magnesia) 30 ml PO DAILY PRN PRN Reason: Constipation Stop: 02/03/18 00:25 Miscellaneous (Probiotic Screen) 1 ea MC PRN PRN PRN Reason: PROTOCOL Stop: 02/12/18 15:43 Naproxen (Naprosyn) 250 mg PO Q4H PRN PRN Reason: Pain (Moderate) Stop: 02/03/18 00:25 Oxcarbazepine (Trileptal) 300 mg PO Q12H [facility] PRN Reason: Protocol Stop: 02/14/18 20:59 Last Admin: 12/16/17 22:04 Dose: 300 mg Risperidone (Risperdal) 4 mg PO BID [facility] PRN Reason: Protocol Stop: 02/03/18 08:59 Last Admin: 12/16/17 16:21 Dose: 4 mg Trazodone HCl (Desyrel) 50 mg PO HS [facility] PRN Reason: Protocol Stop: 02/03/18 20:59 Last Admin: 12/16/17 22:05 Dose: 50 mg Trimethoprim/Sulfamethoxazole (Bactrim Ds) 1 tab PO BID [facility] Stop: 02/11/18 16:59 Last Admin: 12/16/17 16:22 Dose: 1 tab General: Alert, Other (Confused) HEENT: Atraumatic Neck: Supple Cardiovascular: Regular rate Lungs: Clear to auscultation Abdomen: Bowel sounds Extremities: Other (Ulcer in right foot) Neurological: Normal gait Skin: Other (Ulcer right foot) Psych/Mental Status: no Other (Confused not oriented) Assessment/Plan - Assessment Assessment: Patient is awake, Calm in no acute distress. Dx: Aggressive behavior, , cellulites, Foot ulcer. - Plan Plan: Patient under psychiatric care. Will continue with SNF meds. Nutritional Asmnt/Malnutr-PDOC - Dietary Evaluation Malnutrition Findings (Please click <Entered> for more info): Nutritional Asmnt/Malnutrition Start: 12/08/17 14: 30 Text: Status: Complete Freq: Document 12/08/17 14:30 RUDY (Rec: 12/08/17 14:36 RUDY [email or web address]) Nutritional Asmnt/Malnutrition Patient General Information Nutritional Screening High Risk Consult Diagnosis psychosis Pertinent Medical Hx/Surgical Hx schizophrenia, left foot ulcer Subjective Information Pt seen resting in bed at time of visit. Per notes, PO intake 100% of all meals. Current Diet Order/ Nutrition Support [facility] soft chopped Pertinent Medications vitamin c, colace Pertinent Labs no nutrition related labs Nutritional Hx/Data Height 1.91 m Height (Calculated Centimeters) 190.5 Current Weight (lbs) 135.171 kg Weight (Calculated Kilograms) 135.2 Weight (Calculated Grams) 437525.5 [place] Body Weight 196 % [place] Body Weight 152 Body Mass Index (BMI) 37.2 Weight Status Obese GI Symptoms GI Symptoms None Last BM 12/07 Difficult in: None Skin Integrity/Comment: ulcer on right heel, decubitus pressure area to right foot Estimated Nutritional Goals BEE in Kcals: Adj wt of IBW Calories/Kcals/Kg 25-30 based on adj wt 101kg Kcals Calculated 0695-9676 Protein: Adj wt of IBW Protein g/k-1.2 Protein Calculated 101-121 Fluid: ml 2525-3030ml (1ml/kcal) Nutritional Problem 1. Problem Problem increased nutrition needs ( protein) Etiology increased metabolic demand for wound healing Signs/Symptoms: ulcer on right heel Malnutrition Alert Protein-Calorie Malnutrition N/A Is there a minimum of two criteria No selected? Query Text:Check all the applicable criteria. A minimum of two criteria are recommended for diagnosis of either severe or non-severe malnutrition. Intervention/Recommendation Comments 1. Continue with current diet as ordered. 2. Monitor PO intake, wt, labs and skin integrity 3. F/U as low risk in 7 days, 12/15 Expected Outcomes/Goals Expected Outcomes/Goals 1. PO intake to meet at least 75% of nutritional needs. 2. Wt stability, skin to remain intact, labs WNL
[2017-12-17] MEDS: Sulfamethoxazole/TMP 800/160mg Tab PO SCH ×2 (08:58→17:00)
[2017-12-17] MEDS: Aspirin 81mg Chewable Tab PO SCH (08:58)
[2017-12-17] MEDS: risperiDONE 4 mg Tab PO SCH ×2 (08:58→17:01)
[2017-12-17] MEDS: Lactobacillus Rhamnosus GG 15 Billion CFU CAP.SPRINK PO SCH (08:58)
[2017-12-17] MEDS: Venelex 60gm Tube TP SCH (08:59)
[2017-12-17] MEDS: Betamethasone/Clotrimazole Cream 15 gm Tube TP SCH ×2 (08:59→17:01)
[2017-12-17] MEDS: Benztropine 1 MG TAB PO SCH ×2 (08:59→17:01)
[2017-12-17] MEDS: Multivitamin w/ Minerals Tab PO SCH (08:59)
--- NOTE | 2017-12-18 01:51 | Progress Notes ---
DATE: 12/17/2017 SUBJECTIVE: Staff was spoken to. The patient is interviewed. Mood is noted to less irritable. Affect is appropriate. manager of health has been able to find placement for this patient and since the patient is not presenting with any threats to harm self or others, he is going to be discharged for followup on outpatient basis. JOB# [id number]
--- NOTE | 2017-12-26 20:36 | Discharge Summary ---
DATE OF DISCHARGE: 12/17/2017 IDENTIFYING DATA: The patient is a 52-year-old male, resident of [facility]. Information obtained by directly interviewing the patient as well as reviewing the admission papers and they are reliable. JUSTIFICATION OF HOSPITALIZATION: The patient is admitted here on a voluntary basis in view of his aggression and out of control behaviors. CHIEF COMPLAINT: "I should not be here. I should be out." DIAGNOSES AT THE TIME OF ADMISSION: AXIS I: Schizophrenia, chronic paranoid type by history. AXIS II: None. AXIS III: As per Dr. Alanis. HISTORY OF PRESENT ILLNESS: Please refer to the 12/05/2017, dictation done by me. Physical examination was done by Dr. Alanis and is noted to be within normal limits. The lab studies done during the hospitalization are also noted to be within normal limits. HOSPITAL COURSE AND RESPONSE TO TREATMENT: The patient has been observed on inpatient unit, provided with supportive psychotherapy. The patient has been closely monitored and from the get go the patient has been getting easily agitated and is stating that there is no reason for him to be here in the Geriatric unit and he needs to be out. The patient has been continued on the risperidone and trazodone. The patient has been provided with the individual as well group counseling. The patient also has been continued on the Trileptal 150 mg, which was gradually increased to 300 mg twice a day and patient continued on 4 mg twice a day with the Risperdal, trazodone 50 mg at bedtime. With these medication the patient was observed and was noted to be doing fair to well. The patient was finally discharged to be followed at [facility]. MENTAL STATUS EXAMINATION: At the time of discharge, patient's mood to be less irritable. Affect is appropriate. Not suicidal or homicidal. Coping skills are noted to be fair. Sleep and appetite also noted to be fair. The patient has been able to verbalize the concerns rather than to act out at the time of the discharge. CONDITION: At the time of discharge noted to be stable. DIAGNOSES AT THE TIME OF DISCHARGE: AXIS I. Schizophrenia, chronic paranoid type. AXIS II: None. AXIS III: None. AFTERCARE PLAN: The patient is discharged to be followed up on an outpatient basis. JOB# [id number]
== END 2017-12-17 18:15 | disposition home or self-care (01) | DRG 885 ==
LOC: ER 21:34 → GERO 21:50
PROVIDERS: ADMIT Psychiatry & Neurology Psychiatry; ATTEND Psychiatry & Neurology Psychiatry
DX: F20.0 Paranoid schizophrenia (principal); L03.115 Cellulitis of right lower limb; L97.529 Non-pressure chronic ulcer of other part of left foot with unspecified severity; F29 Unspecified psychosis not due to a substance or known physiological condition; Z79.82 Long term (current) use of aspirin
CPT/HCPCS: 81001-TC; 90899; 93005; 94760; G0410; Z7610

== ENCOUNTER 2018-08-05 10:41 | Inpatient (IN) | payer MEDICARE, OTHER ==
--- NOTE | 2018-08-05 11:02 | ED Physician Chart ---
ED Chief Complaint/HPI - Patient Information Date Seen:: 08/05/18 Time Seen:: 10:50 Chief Complaint:: increased agitation History of Present Illness:: Patient is sent here to be admitted to [facility] for increasing agitation and aggression. The EMT related that he was told at the [facility] that the patient ran into a [employer] with his walker 2 days ago. Patient denies this stating that he fell. Patient denies chest pain. Allergies:: Allergies Allergy/AdvReac Type Severity Reaction Status Date / Time clonazepam Allergy Verified 12/04/17 22:00 Historian:: Patient Review:: Nurse's Note Reviewed ED Review of Systems - Review of Systems General/Constitutional: No fever, No chills Skin: No skin lesions Head: No headache Eyes: No loss of vision ENT: No earache Neck: No neck pain Cardio Vascular: No chest pain, No palpitations Pulmonary: No SOB GI: No nausea, No vomiting, No diarrhea G/U: No dysuria Musculoskeletal: No bone or joint pain Psychiatric: Prior psych history Hematopoietic: No bruising Allergic/Immuno: No urticaria Neurological: No syncope, No focal symptoms ED Past Medical History - Past Medical History Past Medical History: Asthma/COPD, Arthritis, Other (pressure ulcer right heel) Family History: None Social History: Non Smoker, No Alcohol Surgical History: None Psychiatricy History: Schizophrenia, Bipolar Medication: Reviewed Family Medical History - Family Member Mother History Unknown: Yes Ethnicity: Non- Living Status: Unknown Hx Family Cancer: (unknown) Hx Family Coronary Artery Disease: (unknown) Hx Family Congestive Heart Failure: (unknown) Hx Family Hypertension: (unknown) Hx Family Stroke: (unknown) Hx Family Diabetes: (unknown) Hx Family Seizures: (unknown) Hx Family Dementia: (unknown) Hx Family AIDS: (unknown) Hx Family COPD: (unknown) Hx Family Hepatitis: (unknown) Hx Family Psychiatric Problems: (unknown) Hx Family Tuberculosis: (unknown) ED Physical Exam - Physical Examination General/Constitutional: Awake, Well-developed, well-nourished, Alert, No distress Other Gen/Cons comments:: Alert and oriented to the correct year only Head: Atraumatic Eyes: Lids, conjuctiva normal, PERRL Skin: Nl inspection, No rash, No skin lesions, No ecchymosis ENMT: External ears, nose nl, TM canals nl, Nasal exam nl Other ENMT comments:: Edentulous Respiratory: Nl effort/Exclusion, Clear to Auscultation, No Wheeze/Rhonchi/Rales Cardio Vascular: RRR, No murmur, gallop, rubs GI: No tenderness/rebounding/guarding : No CVA tenderness Extremities: Normal digits & nails Neuro/Psych: No focal deficits ED Labs/Radiology/EKG Results - EKG Interpretations Rate & Rhythm: normal sinus rhythm [place]: normal Comments:: Anterior T-wave changes ED Assessment - Assessment General Assessment: Patient refuses laboratory tests. I spoke to Dr. Wilberto Alanis at about 1120 and he said it was okay for the patient to go to [facility] without laboratory tests. Patient appears in no acute distress. Medically he appears to be at his baseline. ED Septic Shock - . Is Septic Shock (SBP<90, OR Lactate>4 mmol\L) present?: No ED Reassessment (Disposition) - Reassessment Reassessment Condition:: Unchanged - Diagnosis Diagnosis:: Aggressive behavior; increased agitation; schizophrenia; bipolar disorder - Patient Disposition Admitted to:: [facility] Admitting Medical Physician:: Wilberto Alanis Admitting Psych Physician:: Lola Quiros Condition at Disposition:: Stable, Improved
[2018-08-05 11:46] LABS: URINE BILIRUBIN NEGATIVE (NEGATIVE); URINE BLOOD TRACE (NEGATIVE); URINE GLUCOSE (UA) NEGATIVE (NEGATIVE); URINE KETONE NEGATIVE (NEGATIVE); URINE LEUKOCYTE ESTERASE NEGATIVE (NEGATIVE); URINE MICROSCOPIC INDICATED? YES; URINE NITRATE NEGATIVE (NEGATIVE); URINE PROTEIN NEGATIVE (NEGATIVE); URINE SOURCE MIDSTREAM; URINE UROBILINOGEN 0.2 E.U./dL (0.2 - 1.0)
[2018-08-05 11:53] LABS: URINE CLARITY CLEAR (CLEAR); URINE COLOR LT YELLOW
[2018-08-05] MEDS ORDERED: Magnesium Hydroxide (MOM) 30 mL UDC PO PRN (11:54)
[2018-08-05] MEDS ORDERED: Maalox 30 mL Cup PO PRN (11:54)
[2018-08-05 12:00] LABS: URINE BACTERIA FEW /hpf (NONE SEEN); URINE EPITHELIAL CELLS RARE /lpf (FEW)
[2018-08-05 12:01] LABS: URINE RBC 0-2 /hpf (0-5); URINE WBC 0-2 /hpf (0-5)
[2018-08-05 12:38] VITALS: BP 124/86
--- NOTE | 2018-08-05 16:33 | Psychiatric Evaluation ---
DATE OF SERVICE: 08/05/2018 JUSTIFICATION OF HOSPITALIZATION: Staff was spoken to. The patient is interviewed. The patient is admitted here on a voluntary basis in view of his agitation and refusal to comply with the treatment. IDENTIFYING DATA: The patient is a 52-year-old male, resident of [facility]. CHIEF COMPLAINT: "I don't need any blood work. I do not need any of these medications and leave me alone." HISTORY OF PRESENT ILLNESS: This is the second psychiatric hospitalization for this patient under my care. The patient was hospitalized in November. The patient is reported to have been diagnosed to have schizophrenia, chronic paranoid type and is being followed up by Dr. Molina on an outpatient basis. The patient had been on the Risperdal and trazodone. The patient is reported to have been getting easily agitated, screaming and yelling and refusing to comply with the treatment. Even at the time of the evaluation in here in the Emergency Room, the patient has been refusing any blood work and the patient has been having difficult time to accept. PAST PSYCHIATRIC HISTORY: Please refer to the above. MEDICAL HISTORY AND PHYSICAL EXAMINATION: Requested by Dr. Alanis. SOCIAL HISTORY: The patient is a resident of the assisted facility. PHYSICAL OR SEXUAL ABUSE HISTORY: None. LEGAL PROBLEMS: None at this time. MENTAL STATUS EXAMINATION: The patient is a 52-year-old, looking his stated age, superficially cooperative. Eye contact is poor. Mood is noted to be irritable. Affect is constricted. Insight and judgment at this time are very much impaired. The patient is paranoid. The patient is screaming and yelling. The patient is alert and oriented x 3. The patient has been having difficult time to cope with the stress. The patient is reporting that he should not be on any medications. The patient has no insight. The patient's behavior is likely danger to others and self at this time. The patient is alert and aware that he is in the hospital, but is reluctant to comply with the treatment. DIAGNOSTIC IMPRESSION: AXIS I: Schizophrenia, chronic paranoid type with acute exacerbation. AXIS II: None. AXIS III: As per Dr. Alanis. IMMEDIATE TREATMENT PLAN: The patient is going to be observed on inpatient unit, provided with supportive psychotherapy. The patient is going to be continued on the Risperdal, and trazodone. ESTIMATED LENGTH OF STAY: 3-5 days. DISCHARGE CRITERIA: When he no longer a threat to self or others and be able to cope up with the stress. [facility]# [id number]
[2018-08-05] MEDS ORDERED: risperiDONE 4 mg Tab PO SCH (17:00)
--- NOTE | 2018-08-06 09:36 | History and Physical ---
History of Present Illness - HPI Chief Complaint: Increased in agitation HPI: Patient was send to ER due to increased in agitation. 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 Pertinent Hx GI: Report: No Pertinent Hx Psych: Report: Bipolar, Schizophrenia Musculoskeletal: Report: No Pertinent Hx Rheumatologic: Report: No pertinent Hx Infectious Disease: Report: No Pertinent Hx Renal/: Report: No Pertinent Hx Endocrine: Report: No Pertinent Hx Dermatology: Report: Other (Right heel ulcer) - Past Surgical History Past Surgical History: No pertinent Hx Family Medical History - Family Member Mother History Unknown: Yes Name:: parent Ethnicity: Non- Living Status: Hx Family Cancer: No Hx Family Coronary Artery Disease: No Hx Family Congestive Heart Failure: No Hx Family Hypertension: No Hx Family Stroke: No Hx Family Diabetes: No Hx Family Seizures: No Hx Family Dementia: No Hx Family AIDS: No Hx Family HIV: No Hx Family COPD: No Hx Family Hepatitis: No Hx Family Psychiatric Problems: No Hx Family Tuberculosis: No Social History Smoke: No Alcohol: None Drugs: None Lives: Retirement Domestic Violence: Negative - Medications Home Medications: Home Medication Medication Instructions Recorded Type Multivitamin with Minerals 1 tab PO DAILY #0 12/17/17 Rx [Multiple Vitamin] OXcarbazepine [Trileptal] 150 mg PO Q12H #0 12/17/17 Rx Risperidone 4 mg PO BID #0 12/17/17 Rx Acetaminophen [Tylenol] 2 tab PO Q6HR PRN 08/05/18 History - Allergies Allergies/Adverse Reactions: Allergies Allergy/AdvReac Type Severity Reaction Status Date / Time clonazepam Allergy Verified 12/04/17 22:00 Review of Systems - Review of Systems Constitutional: Report: No Significant Eyes: Report: No Significant ENT: Report: No Significant Respiratory: Report: No Significant Cardiovascular: Report: No Significant Gastrointestinal: Report: No Significant Genitourinary: Report: No Significant Musculoskeletal: Report: No Significant Skin: Report: No Significant Neurological: Report: No Significant Physical Exam - Physical Exam HEENT: Report: Ears Nose Throat within normal limits Neck: Report: Within normal limits Cardiovascular Systems: Report: Regular, Rate and Rhythm Respiratory: Report: Breath Sounds are within normal limits Abdomen: Report: Non-tender to palpation Back: Report: Inspection of back is within normal limits. Extremities: Report: Non-tender to palpation. Skin: Report: Color of skin is within normal limits, Warm, Dry Neuro/Psych: Report: Disoriented to name time or place - Lab Results All Lab Results last 24 hours: Laboratory Results - last 24 hr 08/05/18 11:30 Urine Source MIDSTREAM Urine Color LT YELLOW Urine Clarity CLEAR Urine pH 7.0 Ur Specific [place] <= 1.005 Urine Protein NEGATIVE Urine Glucose (UA) NEGATIVE Urine Ketones NEGATIVE Urine Blood TRACE Urine Nitrate NEGATIVE Urine Bilirubin NEGATIVE Urine Urobilinogen 0.2 Ur Leukocyte Esterase NEGATIVE Urine RBC 0-2 H Urine WBC 0-2 Ur Epithelial Cells RARE Urine Bacteria FEW - Assessment Assessment: Patient is awake, alert, calm, in no acute distress. Dx: Increased in agitation , Asthma/COPD, Polyarthritis. - Plan Plan: Patient is follow by psychiatry, he is continue with SNF meds.
[2018-08-06] MEDS: Multivitamin Tab PO SCH (10:06)
--- NOTE | 2018-08-07 03:00 | Progress Notes ---
DATE: 08/06/2018 PSYCHIATRIC PROGRESS NOTE SUBJECTIVE: Staff was spoken to. The patient is interviewed. Mood is noted to be irritable. Affect is constricted. Insight and judgment at this time are noted to be still impaired. Impulse control is noted to be poor. The patient has been getting easily agitated. The patient's coping skills at this time are noted to be very poor. PLAN: The patient is currently on risperidone 4 mg b.i.d. and oxcarbazepine 150 mg twice a day and the patient has been able to tolerate the medications. No side effects are noted, but the patient, however, has been stating that the medication is too much and he is not able to keep his eyes open and hence the dose is going to be decreased slowly to 3 mg twice a day and the patient is going to be followed up with supportive therapy. JOB# [id number]
--- NOTE | 2018-08-07 10:01 | General Progress Note ---
Subjective - Review of Systems Service Date: 08/07/18 Subjective: Patient is confused Objective - Results Recent Labs: Laboratory Last Values Urine Source MIDSTREAM 08/05/18 11:30 Urine Color LT YELLOW 08/05/18 11:30 Urine Clarity CLEAR (CLEAR) 08/05/18 11:30 Urine pH 7.0 (4.6 - 8.0) 08/05/18 11:30 Ur Specific [place] <= 1.005 (1.005-1.030) 08/05/18 11:30 Urine Protein NEGATIVE mg/dL (NEGATIVE) 08/05/18 11:30 Urine Glucose (UA) NEGATIVE mg/dL (NEGATIVE) 08/05/18 11:30 Urine Ketones NEGATIVE mg/dL (NEGATIVE) 08/05/18 11:30 Urine Blood TRACE (NEGATIVE) 08/05/18 11:30 Urine Nitrate NEGATIVE (NEGATIVE) 08/05/18 11:30 Urine Bilirubin NEGATIVE (NEGATIVE) 08/05/18 11:30 Urine Urobilinogen 0.2 E.U./dL (0.2 - 1.0) 08/05/18 11:30 Ur Leukocyte Esterase NEGATIVE (NEGATIVE) 08/05/18 11:30 Urine RBC 0-2 /hpf (0-5) H 08/05/18 11:30 Urine WBC 0-2 /hpf (0-5) 08/05/18 11:30 Ur Epithelial Cells RARE /lpf (FEW) 08/05/18 11:30 Urine Bacteria FEW /hpf (NONE SEEN) 08/05/18 11:30 - Physical Exam Vitals and I&O: Vital Signs Temp 97.9 F 08/07/18 05:57 Pulse 54 08/07/18 05:57 Resp 18 08/07/18 05:57 BP 106/54 08/07/18 05:57 Pulse Ox 95 08/07/18 05:57 Intake & Output 08/06/18 08/07/18 08/07/18 18:59 06:59 18:59 Intake Total 1200 480 Balance 1200 480 Intake: Oral 1200 480 Other: # Voids 2 # Bowel Movements 1 Stool Characteristics Soft Active Medications: Current Medications Acetaminophen (Tylenol) 650 mg PO Q4HR PRN PRN Reason: Mild Pain / Temp above 100 Stop: 10/04/18 11:53 Last Admin: 08/06/18 21:08 Dose: 650 mg Al Hydrox/Mg Hydrox/Simethicone (Maalox) 30 ml PO Q4HR PRN PRN Reason: GI DISTRESS Stop: 10/04/18 11:53 Lorazepam (Ativan) 0.5 mg PO Q4HR PRN; Protocol PRN Reason: Agitation Stop: 10/04/18 11:59 Magnesium Hydroxide (Milk Of Magnesia) 30 ml PO HS PRN PRN Reason: Constipation Multivitamins/Vitamin C (Theragran) 1 tab PO DAILY [facility]ACHO Stop: 10/05/18 08:59 Last Admin: 08/06/18 10:06 Dose: 1 tab Oxcarbazepine (Trileptal) 150 mg PO BID [facility]; Protocol Stop: 10/04/18 16:59 Risperidone (Risperdal) 3 mg PO BID [facility]; Protocol Stop: 10/06/18 08:59 Zolpidem Tartrate (Ambien) 5 mg PO HS PRN PRN Reason: Insomnia Stop: 10/04/18 11:53 General: Alert, Other (Confused) HEENT: Atraumatic Neck: Supple Cardiovascular: Regular rate Lungs: Clear to auscultation Abdomen: Bowel sounds Extremities: Other (No edema) Neurological: Normal gait Skin: Other (Warm and dry) Psych/Mental Status: Other (Confused) Assessment/Plan - Assessment Assessment: Patient is awake, alert, calm, in no acute distress. patient is refusing laboratory work. Dx: Increased in agitation, Asthma/COPD, Polyarthritis. - Plan Plan: Patient is follow by psychiatry, he is continue with SNF meds.
[2018-08-07] MEDS: Multivitamin Tab PO SCH (10:14)
--- NOTE | 2018-08-07 13:19 | Progress Notes ---
DATE: 08/07/2018 SUBJECTIVE: Staff was spoken to. The patient is interviewed. Mood is noted to be irritable. Affect is constricted. Insight and judgment at this time are noted to be still impaired. Impulse control is noted to be limited. The patient is currently on risperidone 3 mg twice a day and has been able to tolerate the medications. The patient is, however, noted to be very irritable, angry and has been testing the limits. The patient continues to be intrusive and impulsive. PLAN: To continue the patient with the supportive therapy and Risperdal and Trileptal and follow the patient up. JOB# [id number]
--- NOTE | 2018-08-07 20:25 | Consultation ---
DATE OF CONSULTATION: 08/06/2018 REFERRING PHYSICIAN: Lola Quiros MD TYPE OF CONSULTATION: Psychology. HISTORY OF PRESENT ILLNESS: The patient is a 52-year-old male. The patient is a resident of [facility]. 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 The following is by review of the medical record and by patient's self report. The patient is being admitted due to acute agitation and refusal to comply with treatment. The staff at the patient's facility report that the patient had screaming and yelling episodes as well as refusing medication and becoming easily agitated. According to record review, the patient here in the ER had been refusing blood work and having difficulty accepting the inpatient hospitalization. Upon interview, the patient is loud and is markedly tangential. The patient is stating that he does not need medications or blood work and to be left alone. The patient did not answer questions about suicidal ideation, plan, or intention. PAST MEDICAL HISTORY: Please see history and physical by Dr. Alanis. PAST PSYCHIATRIC HISTORY: The patient has a long history of schizophrenia, chronic paranoid type. The patient is under the care of a psychiatrist, Dr. Molina at his placement. The patient has had multiple previous hospitalizations. SUBSTANCE ABUSE HISTORY: The patient denied any history. PSYCHOSOCIAL HISTORY: The patient is a resident of [facility]. The patient did not answer questions about occupational or educational history or baptism affiliation. The patient did not answer questions about history of physical or sexual abuse. The patient did not answer the question about current legal problems. MENTAL STATUS EXAMINATION: The patient appears to be his stated age. The patient's attitude is uncooperative. Eye contact is poor. Speech is loud with intermittent episodes of yelling. Mood is irritable and angry. Affect is constricted and mood congruent. Thought process shows to be markedly tangential. The patient denied any auditory or visual hallucinations. The patient is presenting with suspiciousness and paranoid ideation. The patient did not answer the questions about suicidal or homicidal ideation, plan or intention. The patient is unable to verbally contract for safety. The patient's behavior on the unit is nonredirectable with anger outbursts and yelling. Impulse control is impaired. Concentration is impaired. Sensorium is alert and oriented to person and place. The patient continued to state that he is not going to take medications. The patient's behavior has been resistive to care. The patient did not participate in the memory assessment. The patient did not participate in the interpretation of proverbs. Insight is impaired. Judgment is impaired. DIAGNOSTIC IMPRESSION: AXIS I: Schizophrenia, chronic paranoid type with acute exacerbation. AXIS II: Deferred. AXIS III: Per Dr. Alanis. TREATMENT PLAN: The patient has been seen by Dr. Quiros for psychiatric evaluation and for the management of the patient's psychotropic medications. We will provide supportive psychotherapy to include reality orientation, differentiation, and integration. We will provide de-escalation and limit setting. We will encourage the patient to verbally contract for safety. We will encourage the patient to be able to demonstrate emotional and self-regulation prior to discharge. We will provide coping strategies for chronic severe mental illness. We will provide motivational enhancement for the patient to become compliant and stay compliant with all aspects of his care and treatment, specifically compliance with medication. Thank you, Dr. Quiros, for this consult and the opportunity to participate in this patient's care. JOB# [id number] [place]
[2018-08-08] MEDS: Multivitamin Tab PO SCH (08:46)
--- NOTE | 2018-08-08 10:18 | General Progress Note ---
Subjective - Review of Systems Service Date: 08/08/18 Subjective: Patient is confused, calm Objective - Results Recent Labs: Laboratory Last Values Urine Source MIDSTREAM 08/05/18 11:30 Urine Color LT YELLOW 08/05/18 11:30 Urine Clarity CLEAR (CLEAR) 08/05/18 11:30 Urine pH 7.0 (4.6 - 8.0) 08/05/18 11:30 Ur Specific [place] <= 1.005 (1.005-1.030) 08/05/18 11:30 Urine Protein NEGATIVE mg/dL (NEGATIVE) 08/05/18 11:30 Urine Glucose (UA) NEGATIVE mg/dL (NEGATIVE) 08/05/18 11:30 Urine Ketones NEGATIVE mg/dL (NEGATIVE) 08/05/18 11:30 Urine Blood TRACE (NEGATIVE) 08/05/18 11:30 Urine Nitrate NEGATIVE (NEGATIVE) 08/05/18 11:30 Urine Bilirubin NEGATIVE (NEGATIVE) 08/05/18 11:30 Urine Urobilinogen 0.2 E.U./dL (0.2 - 1.0) 08/05/18 11:30 Ur Leukocyte Esterase NEGATIVE (NEGATIVE) 08/05/18 11:30 Urine RBC 0-2 /hpf (0-5) H 08/05/18 11:30 Urine WBC 0-2 /hpf (0-5) 08/05/18 11:30 Ur Epithelial Cells RARE /lpf (FEW) 08/05/18 11:30 Urine Bacteria FEW /hpf (NONE SEEN) 08/05/18 11:30 - Physical Exam Vitals and I&O: Vital Signs Temp 97.4 F 08/08/18 06:30 Pulse 62 08/08/18 06:30 Resp 20 08/08/18 06:30 BP 121/72 08/08/18 06:30 Pulse Ox 96 08/08/18 06:30 Intake & Output 08/07/18 08/08/18 08/08/18 18:59 06:59 18:59 Intake Total 1200 240 Balance 1200 240 Intake: Oral 1200 240 Other: # Voids 1 # Bowel Movements 1 Active Medications: Current Medications Acetaminophen (Tylenol) 650 mg PO Q4HR PRN PRN Reason: Mild Pain / Temp above 100 Stop: 10/04/18 11:53 Last Admin: 08/07/18 12:07 Dose: 650 mg Al Hydrox/Mg Hydrox/Simethicone (Maalox) 30 ml PO Q4HR PRN PRN Reason: GI DISTRESS Stop: 10/04/18 11:53 Lorazepam (Ativan) 0.5 mg PO Q4HR PRN; Protocol PRN Reason: Agitation Stop: 10/04/18 11:59 Last Admin: 08/08/18 01:42 Dose: 0.5 mg Magnesium Hydroxide (Milk Of Magnesia) 30 ml PO HS PRN PRN Reason: Constipation Multivitamins/Vitamin C (Theragran) 1 tab PO DAILY [facility] Stop: 10/05/18 08:59 Last Admin: 08/08/18 08:46 Dose: 1 tab Oxcarbazepine (Trileptal) 150 mg PO BID [facility]; Protocol Stop: 10/04/18 16:59 Last Admin: 08/08/18 08:46 Dose: 150 mg Risperidone (Risperdal) 3 mg PO BID [facility]; Protocol Stop: 10/06/18 08:59 Last Admin: 08/08/18 08:46 Dose: 3 mg Zolpidem Tartrate (Ambien) 5 mg PO HS PRN PRN Reason: Insomnia Stop: 10/04/18 11:53 Last Admin: 08/07/18 20:40 Dose: 5 mg General: Alert, Other (Confused) HEENT: Atraumatic Neck: Supple Cardiovascular: Regular rate Lungs: Clear to auscultation Abdomen: Bowel sounds Extremities: Other (No edema) Neurological: Normal gait Skin: Other (Warm and dry) Psych/Mental Status: Other (Confused) Assessment/Plan - Assessment Assessment: Patient is awake, alert, calm, in no acute distress. patient is refusing laboratory work. Dx: Increased in agitation, Asthma/COPD, Polyarthritis. - Plan Plan: Patient is follow by psychiatry, he is continue with SNF meds.
--- NOTE | 2018-08-09 02:45 | Progress Notes ---
DATE: 08/08/2018 SUBJECTIVE: Staff was spoken to. The patient is interviewed. Mood is noted to be irritable. Affect is constricted. The patient's coping skills are noted to be still poor. Continues to be very aggressive. Insight and judgment noted to be very much impaired. Impulse control is noted to be poor. Coping skills are noted be poor. No side effects to the medications are noted. The patient has been pacing on the unit. The patient is currently on the oxcarbazepine 150 mg twice a day and Risperdal 3 mg twice a day in view of the impulsivity. We are planning to look into changing the oxcarbazepine to 3 times a day and follow the patient with the supportive therapy. JOB# [id number]
[2018-08-09] MEDS: Multivitamin Tab PO SCH (08:01)
--- NOTE | 2018-08-09 08:54 | General Progress Note ---
Subjective - Review of Systems Service Date: 08/09/18 Subjective: Patient is confused, calm. Objective - Results Recent Labs: Laboratory Last Values Urine Source MIDSTREAM 08/05/18 11:30 Urine Color LT YELLOW 08/05/18 11:30 Urine Clarity CLEAR (CLEAR) 08/05/18 11:30 Urine pH 7.0 (4.6 - 8.0) 08/05/18 11:30 Ur Specific [place] <= 1.005 (1.005-1.030) 08/05/18 11:30 Urine Protein NEGATIVE mg/dL (NEGATIVE) 08/05/18 11:30 Urine Glucose (UA) NEGATIVE mg/dL (NEGATIVE) 08/05/18 11:30 Urine Ketones NEGATIVE mg/dL (NEGATIVE) 08/05/18 11:30 Urine Blood TRACE (NEGATIVE) 08/05/18 11:30 Urine Nitrate NEGATIVE (NEGATIVE) 08/05/18 11:30 Urine Bilirubin NEGATIVE (NEGATIVE) 08/05/18 11:30 Urine Urobilinogen 0.2 E.U./dL (0.2 - 1.0) 08/05/18 11:30 Ur Leukocyte Esterase NEGATIVE (NEGATIVE) 08/05/18 11:30 Urine RBC 0-2 /hpf (0-5) H 08/05/18 11:30 Urine WBC 0-2 /hpf (0-5) 08/05/18 11:30 Ur Epithelial Cells RARE /lpf (FEW) 08/05/18 11:30 Urine Bacteria FEW /hpf (NONE SEEN) 08/05/18 11:30 - Physical Exam Vitals and I&O: Vital Signs Temp 98.9 F 08/09/18 06:22 Pulse 68 08/09/18 06:22 Resp 20 08/09/18 06:22 BP 128/78 08/09/18 06:22 Pulse Ox 99 08/09/18 06:22 Intake & Output 08/08/18 08/09/18 08/09/18 18:59 06:59 18:59 Intake Total 1600 240 Balance 1600 240 Intake: Oral 1600 240 Other: # Voids 4 3 # Bowel Movements 1 0 Active Medications: Current Medications Acetaminophen (Tylenol) 650 mg PO Q4HR PRN PRN Reason: Mild Pain / Temp above 100 Stop: 10/04/18 11:53 Last Admin: 09/15/18 12:07 Dose: 650 mg Al Hydrox/Mg Hydrox/Simethicone (Maalox) 30 ml PO Q4HR PRN PRN Reason: GI DISTRESS Stop: 10/04/18 11:53 Lorazepam (Ativan) 0.5 mg PO Q4HR PRN; Protocol PRN Reason: Agitation Stop: 10/04/18 11:59 Last Admin: 08/08/18 01:42 Dose: 0.5 mg Magnesium Hydroxide (Milk Of Magnesia) 30 ml PO HS PRN PRN Reason: Constipation Multivitamins/Vitamin C (Theragran) 1 tab PO DAILY [facility]O Stop: 10/05/18 08:59 Last Admin: 08/09/18 08:01 Dose: 1 tab Oxcarbazepine (Trileptal) 150 mg PO TID [facility]; Protocol Stop: 10/07/18 13:59 Last Admin: 08/09/18 08:01 Dose: 150 mg Risperidone (Risperdal) 3 mg PO BID [facility]; Protocol Stop: 10/06/18 08:59 Last Admin: 08/09/18 08:01 Dose: 3 mg Zolpidem Tartrate (Ambien) 5 mg PO HS PRN PRN Reason: Insomnia Stop: 10/04/18 11:53 Last Admin: 08/08/18 20:29 Dose: 5 mg General: Alert, Other (Confused) HEENT: Atraumatic Neck: Supple Cardiovascular: Regular rate Lungs: Clear to auscultation Abdomen: Bowel sounds Extremities: Other (No edema) Neurological: Normal gait Skin: Other (Warm and dry) Psych/Mental Status: Other (Confused) Assessment/Plan - Assessment Assessment: Patient is awake, alert, calm, in no acute distress. patient is refusing laboratory work. Dx: Increased in agitation, Asthma/COPD, Polyarthritis. - Plan Plan: Patient is follow by psychiatry, he is continue with SNF meds.
--- NOTE | 2018-08-09 17:58 | Progress Notes ---
DATE: 08/09/2018 PSYCHIATRIC PROGRESS NOTE PROGRESS ON THE UNIT: Staff was spoken to. The patient is interviewed. Mood is noted to be irritable. Affect is constricted. The patient is very dysphoric, pacing on the unit. Coping skills are noted to be still poor. Insight and judgment are also noted to be limited. ASSESSMENT: The patient is still psychotic and impulsive. PLAN: To continue the patient with current medications. I encouraged the patient to verbalize the concerns rather than to act out. JOB# [id number]
--- NOTE | 2018-08-10 06:39 | General Progress Note ---
Subjective - Review of Systems Service Date: 08/10/18 Subjective: Patient is confused, calm. Objective - Results Recent Labs: Laboratory Last Values Urine Source MIDSTREAM 08/05/18 11:30 Urine Color LT YELLOW 08/05/18 11:30 Urine Clarity CLEAR (CLEAR) 08/05/18 11:30 Urine pH 7.0 (4.6 - 8.0) 08/05/18 11:30 Ur Specific [place] <= 1.005 (1.005-1.030) 08/05/18 11:30 Urine Protein NEGATIVE mg/dL (NEGATIVE) 08/05/18 11:30 Urine Glucose (UA) NEGATIVE mg/dL (NEGATIVE) 08/05/18 11:30 Urine Ketones NEGATIVE mg/dL (NEGATIVE) 08/05/18 11:30 Urine Blood TRACE (NEGATIVE) 08/05/18 11:30 Urine Nitrate NEGATIVE (NEGATIVE) 08/05/18 11:30 Urine Bilirubin NEGATIVE (NEGATIVE) 08/05/18 11:30 Urine Urobilinogen 0.2 E.U./dL (0.2 - 1.0) 08/05/18 11:30 Ur Leukocyte Esterase NEGATIVE (NEGATIVE) 08/05/18 11:30 Urine RBC 0-2 /hpf (0-5) H 08/05/18 11:30 Urine WBC 0-2 /hpf (0-5) 08/05/18 11:30 Ur Epithelial Cells RARE /lpf (FEW) 08/05/18 11:30 Urine Bacteria FEW /hpf (NONE SEEN) 08/05/18 11:30 - Physical Exam Vitals and I&O: Vital Signs Temp 96.9 F 08/10/18 06:17 Pulse 55 08/10/18 06:17 Resp 18 08/10/18 06:17 BP 129/73 08/10/18 06:17 Pulse Ox 97 08/10/18 06:17 Intake & Output 08/09/18 08/09/18 08/10/18 06:59 18:59 06:59 Intake Total 240 1200 180 Balance 240 1200 180 Intake: Oral 240 1200 180 Other: # Voids 3 4 3 # Bowel Movements 0 1 0 Stool Characteristics Soft Formed Active Medications: Current Medications Acetaminophen (Tylenol) 650 mg PO Q4HR PRN PRN Reason: Mild Pain / Temp above 100 Stop: 10/04/18 11:53 Last Admin: 08/09/18 20:39 Dose: 650 mg Al Hydrox/Mg Hydrox/Simethicone (Maalox) 30 ml PO Q4HR PRN PRN Reason: GI DISTRESS Stop: 10/04/18 11:53 Lorazepam (Ativan) 0.5 mg PO Q4HR PRN; Protocol PRN Reason: Agitation Stop: 10/04/18 11:59 Last Admin: 08/09/18 20:39 Dose: 0.5 mg Magnesium Hydroxide (Milk Of Magnesia) 30 ml PO HS PRN PRN Reason: Constipation Multivitamins/Vitamin C (Theragran) 1 tab PO DAILY [facility] Stop: 10/05/18 08:59 Last Admin: 08/09/18 08:01 Dose: 1 tab Oxcarbazepine (Trileptal) 150 mg PO TID [facility]; Protocol Stop: 10/07/18 13:59 Last Admin: 08/09/18 20:40 Dose: 150 mg Risperidone (Risperdal) 3 mg PO BID [facility]; Protocol Stop: 10/06/18 08:59 Last Admin: 08/09/18 17:19 Dose: 3 mg Zolpidem Tartrate (Ambien) 5 mg PO HS PRN PRN Reason: Insomnia Stop: 10/04/18 11:53 Last Admin: 08/09/18 20:39 Dose: 5 mg General: Alert, Other (Confused) HEENT: Atraumatic Neck: Supple Cardiovascular: Regular rate Lungs: Clear to auscultation Abdomen: Bowel sounds Extremities: Other (No edema) Neurological: Normal gait Skin: Other (Warm and dry) Psych/Mental Status: Other (Confused) Assessment/Plan - Assessment Assessment: Patient is awake, alert, calm, in no acute distress. patient is refusing laboratory work. Dx: Increased in agitation, Asthma/COPD, Polyarthritis. - Plan Plan: Patient is follow by psychiatry, he is continue with SNF meds. Nutritional Asmnt/Malnutr-PDOC - Dietary Evaluation Malnutrition Findings (Please click <Entered> for more info): Nutritional Asmnt/Malnutrition Start: 08/09/18 14: 55 Text: Status: Complete Freq: Protocol: Document 08/09/18 14:55 RUDY (Rec: 08/09/18 15:00 RUDY [email or web address]) Nutritional Asmnt/Malnutrition Patient General Information Nutritional Screening Moderate Risk Diagnosis psychosis Pertinent Medical Hx/Surgical Hx CAD, asthma, COPD, schipzohrenia, bipolar, right heel ulcer Subjective Information Per EMR, PO intake 100%. Current Diet Order/ Nutrition Support regular Pertinent Medications theragran Pertinent Labs no labs Nutritional Hx/Data Height 1.83 m Height (Calculated Centimeters) 182.9 Current Weight (lbs) 127.006 kg Weight (Calculated Kilograms) 127.0 Weight (Calculated Grams) 680860.9 [place] Body Weight 178 Body Mass Index (BMI) 38.0 Weight Status Obese GI Symptoms GI Symptoms None Last BM 08/08 Difficult in: None Skin Integrity/Comment: laceration to right foot Current %PO Good (75-100%) Estimated Nutritional Goals BEE in Kcals: Adj wt of IBW Calories/Kcals/Kg 23-27 Kcals Calculated 8548-4992 Protein: Adj wt of IBW Protein g/k.8 Protein Calculated 73 Fluid: ml 2116-2457ml (1ml/kcal) Nutritional Problem No current Nutrition Prob Problem N/A Malnutrition Alert Is there a minimum of two criteria No selected? Query Text:Check all the applicable criteria. A minimum of two criteria are recommended for diagnosis of either severe or non-severe malnutrition. Malnutrition Related to Morbid Obesity Malnutrition related to morbid obesity No Intervention/Recommendation Comments 1. Continue with regular diet as ordered. 2. Monitor PO intake, wt, labs and skin integrity 3. F/U as low risk in 7days Expected Outcomes/Goals Expected Outcomes/Goals 1. PO intake to meet at least 75% of nutritional needs. 2. Wt stability, skin to remain intact, labs to approach WNL.
[2018-08-10] MEDS: Multivitamin Tab PO SCH (08:59)
--- NOTE | 2018-08-10 23:12 | Progress Notes ---
DATE: 08/10/2018 SUBJECTIVE: Staff was spoken to. The patient is interviewed. Mood is noted to be irritable. Affect is constricted. The patient has been insisting that I need to call the facility to see if he can return over there. The patient has no insight into his illness. The patient is currently on risperidone and carbamazepine and he is able to tolerate the medications. No major behavioral problems are noted. ASSESSMENT: The patient is still impulsive. PLAN: To continue the patient with the supportive therapy and followup. JOB# [id number]
[2018-08-11] MEDS: Multivitamin Tab PO SCH (08:45)
--- NOTE | 2018-08-11 09:10 | General Progress Note ---
Subjective - Review of Systems Service Date: 08/11/18 Subjective: Patient is confused, calm, in no acute distress. Objective - Results Recent Labs: Laboratory Last Values Urine Source MIDSTREAM 08/05/18 11:30 Urine Color LT YELLOW 08/05/18 11:30 Urine Clarity CLEAR (CLEAR) 08/05/18 11:30 Urine pH 7.0 (4.6 - 8.0) 08/05/18 11:30 Ur Specific [place] <= 1.005 (1.005-1.030) 08/05/18 11:30 Urine Protein NEGATIVE mg/dL (NEGATIVE) 08/05/18 11:30 Urine Glucose (UA) NEGATIVE mg/dL (NEGATIVE) 08/05/18 11:30 Urine Ketones NEGATIVE mg/dL (NEGATIVE) 08/05/18 11:30 Urine Blood TRACE (NEGATIVE) 08/05/18 11:30 Urine Nitrate NEGATIVE (NEGATIVE) 08/05/18 11:30 Urine Bilirubin NEGATIVE (NEGATIVE) 08/05/18 11:30 Urine Urobilinogen 0.2 E.U./dL (0.2 - 1.0) 08/05/18 11:30 Ur Leukocyte Esterase NEGATIVE (NEGATIVE) 08/05/18 11:30 Urine RBC 0-2 /hpf (0-5) H 08/05/18 11:30 Urine WBC 0-2 /hpf (0-5) 08/05/18 11:30 Ur Epithelial Cells RARE /lpf (FEW) 08/05/18 11:30 Urine Bacteria FEW /hpf (NONE SEEN) 08/05/18 11:30 - Physical Exam Vitals and I&O: Vital Signs Temp 97.6 F 08/10/18 20:00 Pulse 61 08/10/18 20:00 Resp 20 08/10/18 20:00 BP 130/76 08/10/18 20:00 Pulse Ox 97 08/10/18 20:00 Intake & Output 08/10/18 08/11/18 08/11/18 18:59 06:59 18:59 Intake Total 1000 240 Balance 1000 240 Intake: Oral 1000 240 Other: # Voids 4 2 # Bowel Movements 1 Active Medications: Current Medications Acetaminophen (Tylenol) 650 mg PO Q4HR PRN PRN Reason: Mild Pain / Temp above 100 Stop: 10/04/18 11:53 Last Admin: 08/09/18 20:39 Dose: 650 mg Al Hydrox/Mg Hydrox/Simethicone (Maalox) 30 ml PO Q4HR PRN PRN Reason: GI DISTRESS Stop: 10/04/18 11:53 Lorazepam (Ativan) 0.5 mg PO Q4HR PRN; Protocol PRN Reason: Agitation Stop: 10/04/18 11:59 Last Admin: 08/10/18 20:11 Dose: 0.5 mg Magnesium Hydroxide (Milk Of Magnesia) 30 ml PO HS PRN PRN Reason: Constipation Multivitamins/Vitamin C (Theragran) 1 tab PO DAILY LACHO Stop: 10/05/18 08:59 Last Admin: 08/11/18 08:45 Dose: 1 tab Oxcarbazepine (Trileptal) 150 mg PO TID LACHO; Protocol Stop: 10/07/18 13:59 Last Admin: 08/11/18 08:45 Dose: 150 mg Risperidone (Risperdal) 3 mg PO BID LACHO; Protocol Stop: 10/06/18 08:59 Last Admin: 08/11/18 08:45 Dose: 3 mg Zolpidem Tartrate (Ambien) 5 mg PO HS PRN PRN Reason: Insomnia Stop: 10/04/18 11:53 Last Admin: 08/10/18 20:10 Dose: 5 mg General: Alert, Other (Confused) HEENT: Atraumatic Neck: Supple Cardiovascular: Regular rate Lungs: Clear to auscultation Abdomen: Bowel sounds Extremities: Other (No edema) Neurological: Normal gait Skin: Other (Warm and dry) Psych/Mental Status: Other (Confused) Assessment/Plan - Assessment Assessment: Patient is awake, alert, calm, in no acute distress. patient continue refusing laboratory work. Dx: Increased in agitation, Asthma/COPD, Polyarthritis. - Plan Plan: Patient is follow by psychiatry, he is continue with SNF meds. Nutritional Asmnt/Malnutr-PDOC - Dietary Evaluation Malnutrition Findings (Please click <Entered> for more info): Nutritional Asmnt/Malnutrition Start: 08/09/18 14: 55 Text: Status: Complete Freq: Protocol: Document 08/09/18 14:55 RUDY (Rec: 08/09/18 15:00 RUDY [email or web address]) Nutritional Asmnt/Malnutrition Patient General Information Nutritional Screening Moderate Risk Diagnosis psychosis Pertinent Medical Hx/Surgical Hx CAD, asthma, COPD, schipzohrenia, bipolar, right heel ulcer Subjective Information Per EMR, PO intake 100%. Current Diet Order/ Nutrition Support regular Pertinent Medications theragran Pertinent Labs no labs Nutritional Hx/Data Height 1.83 m Height (Calculated Centimeters) 182.9 Current Weight (lbs) 127.006 kg Weight (Calculated Kilograms) 127.0 Weight (Calculated Grams) 323711.9 [place] Body Weight 178 Body Mass Index (BMI) 38.0 Weight Status Obese GI Symptoms GI Symptoms None Last BM 08/08 Difficult in: None Skin Integrity/Comment: laceration to right foot Current %PO Good (75-100%) Estimated Nutritional Goals BEE in Kcals: Adj wt of IBW Calories/Kcals/Kg 23-27 Kcals Calculated 7205-7234 Protein: Adj wt of IBW Protein g/k.8 Protein Calculated 73 Fluid: ml 2116-2457ml (1ml/kcal) Nutritional Problem No current Nutrition Prob Problem N/A Malnutrition Alert Is there a minimum of two criteria No selected? Query Text:Check all the applicable criteria. A minimum of two criteria are recommended for diagnosis of either severe or non-severe malnutrition. Malnutrition Related to Morbid Obesity Malnutrition related to morbid obesity No Intervention/Recommendation Comments 1. Continue with regular diet as ordered. 2. Monitor PO intake, wt, labs and skin integrity 3. F/U as low risk in 7days Expected Outcomes/Goals Expected Outcomes/Goals 1. PO intake to meet at least 75% of nutritional needs. 2. Wt stability, skin to remain intact, labs to approach WNL.
--- NOTE | 2018-08-11 22:37 | Progress Notes ---
DATE: 08/11/2018 PSYCHIATRIC PROGRESS NOTE SUBJECTIVE: Staff was spoken to. The patient is interviewed. Mood is noted to be less irritable. Affect is appropriate. The patient is not suicidal or homicidal. Insight and judgment are noted to be improving. Impulse control seems to be fair. The patient is motivated to return back to the facility. ASSESSMENT: The patient's psychosis is resolving. Impulsivity is coming under control. PLAN: To coordinate the care with the dependency case manager and try to see if we can discharge the patient back to the facility. JOB# [id number]
--- NOTE | 2018-08-12 08:43 | General Progress Note ---
Subjective - Review of Systems Service Date: 08/12/18 Subjective: Patient is confused, calm, in no acute distress. Objective - Results Recent Labs: Laboratory Last Values Urine Source MIDSTREAM 08/05/18 11:30 Urine Color LT YELLOW 08/05/18 11:30 Urine Clarity CLEAR (CLEAR) 08/05/18 11:30 Urine pH 7.0 (4.6 - 8.0) 08/05/18 11:30 Ur Specific [place] <= 1.005 (1.005-1.030) 08/05/18 11:30 Urine Protein NEGATIVE mg/dL (NEGATIVE) 08/05/18 11:30 Urine Glucose (UA) NEGATIVE mg/dL (NEGATIVE) 08/05/18 11:30 Urine Ketones NEGATIVE mg/dL (NEGATIVE) 08/05/18 11:30 Urine Blood TRACE (NEGATIVE) 08/05/18 11:30 Urine Nitrate NEGATIVE (NEGATIVE) 08/05/18 11:30 Urine Bilirubin NEGATIVE (NEGATIVE) 08/05/18 11:30 Urine Urobilinogen 0.2 E.U./dL (0.2 - 1.0) 08/05/18 11:30 Ur Leukocyte Esterase NEGATIVE (NEGATIVE) 08/05/18 11:30 Urine RBC 0-2 /hpf (0-5) H 08/05/18 11:30 Urine WBC 0-2 /hpf (0-5) 08/05/18 11:30 Ur Epithelial Cells RARE /lpf (FEW) 08/05/18 11:30 Urine Bacteria FEW /hpf (NONE SEEN) 08/05/18 11:30 - Physical Exam Vitals and I&O: Vital Signs Temp 97.4 F 08/12/18 06:44 Pulse 79 08/12/18 06:44 Resp 20 08/12/18 06:44 BP 135/63 08/12/18 06:44 Pulse Ox 98 08/12/18 06:44 Intake & Output 08/11/18 08/12/18 08/12/18 18:59 06:59 18:59 Intake Total 1200 120 Balance 1200 120 Intake: Oral 1200 120 Other: # Voids 2 Active Medications: Current Medications Acetaminophen (Tylenol) 650 mg PO Q4HR PRN PRN Reason: Mild Pain / Temp above 100 Stop: 10/04/18 11:53 Last Admin: 08/09/18 20:39 Dose: 650 mg Al Hydrox/Mg Hydrox/Simethicone (Maalox) 30 ml PO Q4HR PRN PRN Reason: GI DISTRESS Stop: 10/04/18 11:53 Lorazepam (Ativan) 0.5 mg PO Q4HR PRN; Protocol PRN Reason: Agitation Stop: 10/04/18 11:59 Last Admin: 08/11/18 20:26 Dose: 0.5 mg Magnesium Hydroxide (Milk Of Magnesia) 30 ml PO HS PRN PRN Reason: Constipation Multivitamins/Vitamin C (Theragran) 1 tab PO DAILY LACHO Stop: 10/05/18 08:59 Last Admin: 08/11/18 08:45 Dose: 1 tab Oxcarbazepine (Trileptal) 150 mg PO TID LACHO; Protocol Stop: 10/07/18 13:59 Last Admin: 08/11/18 20:26 Dose: 150 mg Risperidone (Risperdal) 3 mg PO BID LACHO; Protocol Stop: 10/06/18 08:59 Last Admin: 08/11/18 17:12 Dose: 3 mg Zolpidem Tartrate (Ambien) 5 mg PO HS PRN PRN Reason: Insomnia Stop: 10/04/18 11:53 Last Admin: 08/10/18 20:10 Dose: 5 mg General: Alert, Other (Confused) HEENT: Atraumatic Neck: Supple Cardiovascular: Regular rate Lungs: Clear to auscultation Abdomen: Bowel sounds Extremities: Other (No edema) Neurological: Normal gait Skin: Other (Warm and dry) Psych/Mental Status: Other (Confused) Assessment/Plan - Assessment Assessment: Patient is awake, alert, calm, in no acute distress. patient continue refusing laboratory work. Dx: Increased in agitation, Asthma/COPD, Polyarthritis. - Plan Plan: Patient is follow by psychiatry, he is continue with SNF meds. Nutritional Asmnt/Malnutr-PDOC - Dietary Evaluation Malnutrition Findings (Please click <Entered> for more info): Nutritional Asmnt/Malnutrition Start: 08/09/18 14: 55 Text: Status: Complete Freq: Protocol: Document 08/09/18 14:55 LCLEVARG (Rec: 08/09/18 15:00 RUDY [email or web address]) Nutritional Asmnt/Malnutrition Patient General Information Nutritional Screening Moderate Risk Diagnosis psychosis Pertinent Medical Hx/Surgical Hx CAD, asthma, COPD, schipzohrenia, bipolar, right heel ulcer Subjective Information Per EMR, PO intake 100%. Current Diet Order/ Nutrition Support regular Pertinent Medications theragran Pertinent Labs no labs Nutritional Hx/Data Height 1.83 m Height (Calculated Centimeters) 182.9 Current Weight (lbs) 127.006 kg Weight (Calculated Kilograms) 127.0 Weight (Calculated Grams) 928243.9 [place] Body Weight 178 Body Mass Index (BMI) 38.0 Weight Status Obese GI Symptoms GI Symptoms None Last BM 08/08 Difficult in: None Skin Integrity/Comment: laceration to right foot Current %PO Good (75-100%) Estimated Nutritional Goals BEE in Kcals: Adj wt of IBW Calories/Kcals/Kg 23-27 Kcals Calculated 0290-1530 Protein: Adj wt of IBW Protein g/k.8 Protein Calculated 73 Fluid: ml 2116-2457ml (1ml/kcal) Nutritional Problem No current Nutrition Prob Problem N/A Malnutrition Alert Is there a minimum of two criteria No selected? Query Text:Check all the applicable criteria. A minimum of two criteria are recommended for diagnosis of either severe or non-severe malnutrition. Malnutrition Related to Morbid Obesity Malnutrition related to morbid obesity No Intervention/Recommendation Comments 1. Continue with regular diet as ordered. 2. Monitor PO intake, wt, labs and skin integrity 3. F/U as low risk in 7days Expected Outcomes/Goals Expected Outcomes/Goals 1. PO intake to meet at least 75% of nutritional needs. 2. Wt stability, skin to remain intact, labs to approach WNL.
[2018-08-12] MEDS: Multivitamin Tab PO SCH (08:46)
--- NOTE | 2018-08-12 12:47 | Progress Notes ---
DATE: 08/12/2018 SUBJECTIVE: Staff was spoken to. The patient is interviewed. Mood is noted to be irritable. Affect is constricted. The patient's conservator has called and then stating that there is a 7-day bed hold. We need to discharge the patient and be ready to discharge, but the president is saying that they have not bled no bed available for this patient at this time and the conservator is looking for placement for the patient. ASSESSMENT: The patient's impulsivity is improving and awaiting placement. PLAN: To continue the patient with the current medications and followup. JOB# [id number]
--- NOTE | 2018-08-13 08:55 | General Progress Note ---
Subjective - Review of Systems Service Date: 08/13/18 Subjective: Patient is confused, calm, in no acute distress. Objective - Results Recent Labs: Laboratory Last Values Urine Source MIDSTREAM 08/05/18 11:30 Urine Color LT YELLOW 08/05/18 11:30 Urine Clarity CLEAR (CLEAR) 08/05/18 11:30 Urine pH 7.0 (4.6 - 8.0) 08/05/18 11:30 Ur Specific [place] <= 1.005 (1.005-1.030) 08/05/18 11:30 Urine Protein NEGATIVE mg/dL (NEGATIVE) 08/05/18 11:30 Urine Glucose (UA) NEGATIVE mg/dL (NEGATIVE) 08/05/18 11:30 Urine Ketones NEGATIVE mg/dL (NEGATIVE) 08/05/18 11:30 Urine Blood TRACE (NEGATIVE) 08/05/18 11:30 Urine Nitrate NEGATIVE (NEGATIVE) 08/05/18 11:30 Urine Bilirubin NEGATIVE (NEGATIVE) 08/05/18 11:30 Urine Urobilinogen 0.2 E.U./dL (0.2 - 1.0) 08/05/18 11:30 Ur Leukocyte Esterase NEGATIVE (NEGATIVE) 08/05/18 11:30 Urine RBC 0-2 /hpf (0-5) H 08/05/18 11:30 Urine WBC 0-2 /hpf (0-5) 08/05/18 11:30 Ur Epithelial Cells RARE /lpf (FEW) 08/05/18 11:30 Urine Bacteria FEW /hpf (NONE SEEN) 08/05/18 11:30 - Physical Exam Vitals and I&O: Vital Signs Temp 96.9 F 08/13/18 06:24 Pulse 64 08/13/18 06:24 Resp 16 08/13/18 06:24 BP 116/71 08/13/18 06:24 Pulse Ox 95 08/13/18 06:24 Intake & Output 08/12/18 08/13/18 08/13/18 18:59 06:59 18:59 Intake Total 1200 Balance 1200 Intake: Oral 1200 Other: # Bowel Movements 1 Active Medications: Current Medications Acetaminophen (Tylenol) 650 mg PO Q4HR PRN PRN Reason: Mild Pain / Temp above 100 Stop: 10/04/18 11:53 Last Admin: 08/09/18 20:39 Dose: 650 mg Al Hydrox/Mg Hydrox/Simethicone (Maalox) 30 ml PO Q4HR PRN PRN Reason: GI DISTRESS Stop: 10/04/18 11:53 Lorazepam (Ativan) 0.5 mg PO Q4HR PRN; Protocol PRN Reason: Agitation Stop: 10/04/18 11:59 Last Admin: 08/11/18 20:26 Dose: 0.5 mg Magnesium Hydroxide (Milk Of Magnesia) 30 ml PO HS PRN PRN Reason: Constipation Multivitamins/Vitamin C (Theragran) 1 tab PO DAILY LACHO Stop: 10/05/18 08:59 Last Admin: 08/12/18 08:46 Dose: 1 tab Oxcarbazepine (Trileptal) 150 mg PO TID LACHO; Protocol Stop: 10/07/18 13:59 Last Admin: 08/12/18 20:46 Dose: 150 mg Risperidone (Risperdal) 3 mg PO BID LACHO; Protocol Stop: 10/06/18 08:59 Last Admin: 08/12/18 17:11 Dose: 3 mg Zolpidem Tartrate (Ambien) 5 mg PO HS PRN PRN Reason: Insomnia Stop: 10/04/18 11:53 Last Admin: 08/10/18 20:10 Dose: 5 mg General: Alert, Other (Confused) HEENT: Atraumatic Neck: Supple Cardiovascular: Regular rate Lungs: Clear to auscultation Abdomen: Bowel sounds Extremities: Other (No edema) Neurological: Normal gait Skin: Other (Warm and dry) Psych/Mental Status: Other (Confused) Assessment/Plan - Assessment Assessment: Patient is awake, alert, calm, in no acute distress. patient continue refusing laboratory work. Dx: Increased in agitation, Asthma/COPD, Polyarthritis. - Plan Plan: Patient is follow by psychiatry, he is continue with SNF meds. Nutritional Asmnt/Malnutr-PDOC - Dietary Evaluation Malnutrition Findings (Please click <Entered> for more info): Nutritional Asmnt/Malnutrition Start: 08/09/18 14: 55 Text: Status: Complete Freq: Protocol: Document 08/09/18 14:55 LCHENG (Rec: 08/09/18 15:00 RUDY [email or web address]) Nutritional Asmnt/Malnutrition Patient General Information Nutritional Screening Moderate Risk Diagnosis psychosis Pertinent Medical Hx/Surgical Hx CAD, asthma, COPD, schipzohrenia, bipolar, right heel ulcer Subjective Information Per EMR, PO intake 100%. Current Diet Order/ Nutrition Support regular Pertinent Medications theragran Pertinent Labs no labs Nutritional Hx/Data Height 1.83 m Height (Calculated Centimeters) 182.9 Current Weight (lbs) 127.006 kg Weight (Calculated Kilograms) 127.0 Weight (Calculated Grams) 240763.9 [place] Body Weight 178 Body Mass Index (BMI) 38.0 Weight Status Obese GI Symptoms GI Symptoms None Last BM 08/08 Difficult in: None Skin Integrity/Comment: laceration to right foot Current %PO Good (75-100%) Estimated Nutritional Goals BEE in Kcals: Adj wt of IBW Calories/Kcals/Kg 23-27 Kcals Calculated 4580-3381 Protein: Adj wt of IBW Protein g/k.8 Protein Calculated 73 Fluid: ml 2116-2457ml (1ml/kcal) Nutritional Problem No current Nutrition Prob Problem N/A Malnutrition Alert Is there a minimum of two criteria No selected? Query Text:Check all the applicable criteria. A minimum of two criteria are recommended for diagnosis of either severe or non-severe malnutrition. Malnutrition Related to Morbid Obesity Malnutrition related to morbid obesity No Intervention/Recommendation Comments 1. Continue with regular diet as ordered. 2. Monitor PO intake, wt, labs and skin integrity 3. F/U as low risk in 7days Expected Outcomes/Goals Expected Outcomes/Goals 1. PO intake to meet at least 75% of nutritional needs. 2. Wt stability, skin to remain intact, labs to approach WNL.
[2018-08-13] MEDS: Multivitamin Tab PO SCH (09:06)
--- NOTE | 2018-08-13 22:56 | Progress Notes ---
DATE: 08/13/2018 PSYCHIATRIC PROGRESS NOTE SUBJECTIVE: Staff was spoken to. The patient is interviewed. Mood is noted to be irritable. Affect is constricted. The patient has paranoia, but denies any command hallucinations. Insight and judgment are noted to be still impaired. Impulse control is noted to be limited and the patient has no place to return to. The protective services case worker as well as the conservator they have been looking for placement for this patient. ASSESSMENT: The patient is still psychotic. PLAN: To continue the patient with the Trileptal and the Respirdal and follow the patient. JOB# [id number]
[2018-08-14] MEDS: Multivitamin Tab PO SCH (08:25)
--- NOTE | 2018-08-14 09:15 | General Progress Note ---
Subjective - Review of Systems Service Date: 08/14/18 Subjective: Patient is confused, calm, in no acute distress. Objective - Results Recent Labs: Laboratory Last Values Urine Source MIDSTREAM 08/05/18 11:30 Urine Color LT YELLOW 08/05/18 11:30 Urine Clarity CLEAR (CLEAR) 08/05/18 11:30 Urine pH 7.0 (4.6 - 8.0) 08/05/18 11:30 Ur Specific [place] <= 1.005 (1.005-1.030) 08/05/18 11:30 Urine Protein NEGATIVE mg/dL (NEGATIVE) 08/05/18 11:30 Urine Glucose (UA) NEGATIVE mg/dL (NEGATIVE) 08/05/18 11:30 Urine Ketones NEGATIVE mg/dL (NEGATIVE) 08/05/18 11:30 Urine Blood TRACE (NEGATIVE) 08/05/18 11:30 Urine Nitrate NEGATIVE (NEGATIVE) 08/05/18 11:30 Urine Bilirubin NEGATIVE (NEGATIVE) 08/05/18 11:30 Urine Urobilinogen 0.2 E.U./dL (0.2 - 1.0) 08/05/18 11:30 Ur Leukocyte Esterase NEGATIVE (NEGATIVE) 08/05/18 11:30 Urine RBC 0-2 /hpf (0-5) H 08/05/18 11:30 Urine WBC 0-2 /hpf (0-5) 08/05/18 11:30 Ur Epithelial Cells RARE /lpf (FEW) 08/05/18 11:30 Urine Bacteria FEW /hpf (NONE SEEN) 08/05/18 11:30 - Physical Exam Vitals and I&O: Vital Signs Temp 98.6 F 08/13/18 14:00 Pulse 67 08/13/18 14:00 Resp 17 08/13/18 14:00 BP 117/73 08/13/18 14:00 Pulse Ox 94 08/13/18 14:00 Active Medications: Current Medications Acetaminophen (Tylenol) 650 mg PO Q4HR PRN PRN Reason: Mild Pain / Temp above 100 Stop: 10/04/18 11:53 Last Admin: 08/13/18 20:26 Dose: 650 mg Al Hydrox/Mg Hydrox/Simethicone (Maalox) 30 ml PO Q4HR PRN PRN Reason: GI DISTRESS Stop: 10/04/18 11:53 Lorazepam (Ativan) 0.5 mg PO Q4HR PRN; Protocol PRN Reason: Agitation Stop: 10/04/18 11:59 Last Admin: 08/11/18 20:26 Dose: 0.5 mg Magnesium Hydroxide (Milk Of Magnesia) 30 ml PO HS PRN PRN Reason: Constipation Multivitamins/Vitamin C (Theragran) 1 tab PO DAILY LACHO Stop: 10/05/18 08:59 Last Admin: 08/14/18 08:25 Dose: 1 tab Oxcarbazepine (Trileptal) 150 mg PO TID LACHO; Protocol Stop: 10/07/18 13:59 Last Admin: 08/14/18 08:25 Dose: 150 mg Risperidone (Risperdal) 3 mg PO BID LACHO; Protocol Stop: 10/06/18 08:59 Last Admin: 08/14/18 08:25 Dose: 3 mg Zolpidem Tartrate (Ambien) 5 mg PO HS PRN PRN Reason: Insomnia Stop: 10/04/18 11:53 Last Admin: 08/10/18 20:10 Dose: 5 mg General: Alert, Other (Confused) HEENT: Atraumatic Neck: Supple Cardiovascular: Regular rate Lungs: Clear to auscultation Abdomen: Bowel sounds Extremities: Other (No edema) Neurological: Normal gait Skin: Other (Warm and dry) Psych/Mental Status: Other (Confused) Assessment/Plan - Assessment Assessment: Patient is awake, alert, calm, in no acute distress. patient continue refusing laboratory work. Dx: Increased in agitation, Asthma/COPD, Polyarthritis. - Plan Plan: Patient is follow by psychiatry, he is continue with SNF meds. Nutritional Asmnt/Malnutr-PDOC - Dietary Evaluation Malnutrition Findings (Please click <Entered> for more info): Nutritional Asmnt/Malnutrition Start: 08/09/18 14: 55 Text: Status: Complete Freq: Protocol: Document 08/09/18 14:55 LCLEVARG (Rec: 08/09/18 15:00 RUDY [email or web address]) Nutritional Asmnt/Malnutrition Patient General Information Nutritional Screening Moderate Risk Diagnosis psychosis Pertinent Medical Hx/Surgical Hx CAD, asthma, COPD, schipzohrenia, bipolar, right heel ulcer Subjective Information Per EMR, PO intake 100%. Current Diet Order/ Nutrition Support regular Pertinent Medications theragran Pertinent Labs no labs Nutritional Hx/Data Height 1.83 m Height (Calculated Centimeters) 182.9 Current Weight (lbs) 127.006 kg Weight (Calculated Kilograms) 127.0 Weight (Calculated Grams) 879358.9 [place] Body Weight 178 Body Mass Index (BMI) 38.0 Weight Status Obese GI Symptoms GI Symptoms None Last BM 08/08 Difficult in: None Skin Integrity/Comment: laceration to right foot Current %PO Good (75-100%) Estimated Nutritional Goals BEE in Kcals: Adj wt of IBW Calories/Kcals/Kg 23-27 Kcals Calculated 9028-4209 Protein: Adj wt of IBW Protein g/k.8 Protein Calculated 73 Fluid: ml 2116-2457ml (1ml/kcal) Nutritional Problem No current Nutrition Prob Problem N/A Malnutrition Alert Is there a minimum of two criteria No selected? Query Text:Check all the applicable criteria. A minimum of two criteria are recommended for diagnosis of either severe or non-severe malnutrition. Malnutrition Related to Morbid Obesity Malnutrition related to morbid obesity No Intervention/Recommendation Comments 1. Continue with regular diet as ordered. 2. Monitor PO intake, wt, labs and skin integrity 3. F/U as low risk in 7days Expected Outcomes/Goals Expected Outcomes/Goals 1. PO intake to meet at least 75% of nutritional needs. 2. Wt stability, skin to remain intact, labs to approach WNL.
--- NOTE | 2018-08-14 14:05 | Progress Notes ---
DATE: 08/14/2018 SUBJECTIVE: Staff was spoken to. The patient is interviewed. Mood is noted to be irritable. Affect is constricted. The patient is stating that he was behaving good and could not figure it out why they cannot take him back. Coping skills at this time are noted to be poor. The patient has paranoia. The patient is currently on Risperdal and has been able to tolerate the medications. No side effects to medications are noted. The patient is also reported to have been on oxcarbazepine and has been willing to comply. ASSESSMENT: The patient's psychosis is resolving and awaiting placement. PLAN: To continue the patient with the supportive therapy and followup. [facility]# [id number]
[2018-08-15] MEDS: Multivitamin Tab PO SCH (08:03)
--- NOTE | 2018-08-15 09:29 | General Progress Note ---
Subjective - Review of Systems Service Date: 08/15/18 Subjective: Patient is confused, calm, in no acute distress. Objective - Results Recent Labs: Laboratory Last Values Urine Source MIDSTREAM 08/05/18 11:30 Urine Color LT YELLOW 08/05/18 11:30 Urine Clarity CLEAR (CLEAR) 08/05/18 11:30 Urine pH 7.0 (4.6 - 8.0) 08/05/18 11:30 Ur Specific [place] <= 1.005 (1.005-1.030) 08/05/18 11:30 Urine Protein NEGATIVE mg/dL (NEGATIVE) 08/05/18 11:30 Urine Glucose (UA) NEGATIVE mg/dL (NEGATIVE) 08/05/18 11:30 Urine Ketones NEGATIVE mg/dL (NEGATIVE) 08/05/18 11:30 Urine Blood TRACE (NEGATIVE) 08/05/18 11:30 Urine Nitrate NEGATIVE (NEGATIVE) 08/05/18 11:30 Urine Bilirubin NEGATIVE (NEGATIVE) 08/05/18 11:30 Urine Urobilinogen 0.2 E.U./dL (0.2 - 1.0) 08/05/18 11:30 Ur Leukocyte Esterase NEGATIVE (NEGATIVE) 08/05/18 11:30 Urine RBC 0-2 /hpf (0-5) H 08/05/18 11:30 Urine WBC 0-2 /hpf (0-5) 08/05/18 11:30 Ur Epithelial Cells RARE /lpf (FEW) 08/05/18 11:30 Urine Bacteria FEW /hpf (NONE SEEN) 08/05/18 11:30 - Physical Exam Vitals and I&O: Vital Signs Temp 97.8 F 08/15/18 06:34 Pulse 60 08/15/18 06:34 Resp 20 08/15/18 06:34 BP 114/56 08/15/18 06:34 Pulse Ox 98 08/15/18 06:34 Intake & Output 08/14/18 08/15/18 08/15/18 18:59 06:59 18:59 Intake Total 1100 240 Balance 1100 240 Intake: Oral 1100 240 Other: # Voids 5 3 # Bowel Movements 1 Active Medications: Current Medications Acetaminophen (Tylenol) 650 mg PO Q4HR PRN PRN Reason: Mild Pain / Temp above 100 Stop: 10/04/18 11:53 Last Admin: 08/13/18 20:26 Dose: 650 mg Al Hydrox/Mg Hydrox/Simethicone (Maalox) 30 ml PO Q4HR PRN PRN Reason: GI DISTRESS Stop: 10/04/18 11:53 Lorazepam (Ativan) 0.5 mg PO Q4HR PRN; Protocol PRN Reason: Agitation Stop: 10/04/18 11:59 Last Admin: 08/11/18 20:26 Dose: 0.5 mg Magnesium Hydroxide (Milk Of Magnesia) 30 ml PO HS PRN PRN Reason: Constipation Multivitamins/Vitamin C (Theragran) 1 tab PO DAILY LACHO Stop: 10/05/18 08:59 Last Admin: 08/15/18 08:03 Dose: 1 tab Oxcarbazepine (Trileptal) 150 mg PO TID LACHO; Protocol Stop: 10/07/18 13:59 Last Admin: 08/15/18 08:04 Dose: 150 mg Risperidone (Risperdal) 3 mg PO BID LACHO; Protocol Stop: 10/06/18 08:59 Last Admin: 08/15/18 08:03 Dose: 3 mg Zolpidem Tartrate (Ambien) 5 mg PO HS PRN PRN Reason: Insomnia Stop: 10/04/18 11:53 Last Admin: 08/10/18 20:10 Dose: 5 mg General: Alert, Other (Confused) HEENT: Atraumatic Neck: Supple Cardiovascular: Regular rate Lungs: Clear to auscultation Abdomen: Bowel sounds Extremities: Other (No edema) Neurological: Normal gait Skin: Other (Warm and dry) Psych/Mental Status: Other (Confused) Assessment/Plan - Assessment Assessment: Patient is awake, alert, calm, in no acute distress. patient continue refusing laboratory work. Dx: Increased in agitation, Asthma/COPD, Polyarthritis. - Plan Plan: Patient is follow by psychiatry, he is continue with SNF meds. Nutritional Asmnt/Malnutr-PDOC - Dietary Evaluation Malnutrition Findings (Please click <Entered> for more info): Nutritional Asmnt/Malnutrition Start: 08/09/18 14: 55 Text: Status: Complete Freq: Protocol: Document 08/09/18 14:55 RUDY (Rec: 08/09/18 15:00 RUDY [email or web address]) Nutritional Asmnt/Malnutrition Patient General Information Nutritional Screening Moderate Risk Diagnosis psychosis Pertinent Medical Hx/Surgical Hx CAD, asthma, COPD, schipzohrenia, bipolar, right heel ulcer Subjective Information Per EMR, PO intake 100%. Current Diet Order/ Nutrition Support regular Pertinent Medications theragran Pertinent Labs no labs Nutritional Hx/Data Height 1.83 m Height (Calculated Centimeters) 182.9 Current Weight (lbs) 127.006 kg Weight (Calculated Kilograms) 127.0 Weight (Calculated Grams) 065058.9 [place] Body Weight 178 Body Mass Index (BMI) 38.0 Weight Status Obese GI Symptoms GI Symptoms None Last BM 08/08 Difficult in: None Skin Integrity/Comment: laceration to right foot Current %PO Good (75-100%) Estimated Nutritional Goals BEE in Kcals: Adj wt of IBW Calories/Kcals/Kg 23-27 Kcals Calculated 1776-0060 Protein: Adj wt of IBW Protein g/k.8 Protein Calculated 73 Fluid: ml 2116-2457ml (1ml/kcal) Nutritional Problem No current Nutrition Prob Problem N/A Malnutrition Alert Is there a minimum of two criteria No selected? Query Text:Check all the applicable criteria. A minimum of two criteria are recommended for diagnosis of either severe or non-severe malnutrition. Malnutrition Related to Morbid Obesity Malnutrition related to morbid obesity No Intervention/Recommendation Comments 1. Continue with regular diet as ordered. 2. Monitor PO intake, wt, labs and skin integrity 3. F/U as low risk in 7days Expected Outcomes/Goals Expected Outcomes/Goals 1. PO intake to meet at least 75% of nutritional needs. 2. Wt stability, skin to remain intact, labs to approach WNL.
--- NOTE | 2018-08-15 17:06 | Progress Notes ---
DATE: 08/15/2018 SUBJECTIVE: Staff was spoken to. The patient is interviewed. Mood is noted to be irritable. Affect is constricted. The patient is stating that he is trying to ____ that he is going to be leaving when he lives in here. Coping skills at this time are noted to be still poor. Insight and judgment are also noted to be impaired. ASSESSMENT: The patient is still paranoid and impulsivity is coming under control compared to the time of the admission. PLAN: To continue the patient with the supportive therapy and followup. JOB# [id number]
--- NOTE | 2018-08-16 08:43 | General Progress Note ---
Subjective - Review of Systems Service Date: 08/16/18 Subjective: Patient is confused, calm, in no acute distress. Objective - Results Recent Labs: Laboratory Last Values Urine Source MIDSTREAM 08/05/18 11:30 Urine Color LT YELLOW 08/05/18 11:30 Urine Clarity CLEAR (CLEAR) 08/05/18 11:30 Urine pH 7.0 (4.6 - 8.0) 08/05/18 11:30 Ur Specific [place] <= 1.005 (1.005-1.030) 08/05/18 11:30 Urine Protein NEGATIVE mg/dL (NEGATIVE) 08/05/18 11:30 Urine Glucose (UA) NEGATIVE mg/dL (NEGATIVE) 08/05/18 11:30 Urine Ketones NEGATIVE mg/dL (NEGATIVE) 08/05/18 11:30 Urine Blood TRACE (NEGATIVE) 08/05/18 11:30 Urine Nitrate NEGATIVE (NEGATIVE) 08/05/18 11:30 Urine Bilirubin NEGATIVE (NEGATIVE) 08/05/18 11:30 Urine Urobilinogen 0.2 E.U./dL (0.2 - 1.0) 08/05/18 11:30 Ur Leukocyte Esterase NEGATIVE (NEGATIVE) 08/05/18 11:30 Urine RBC 0-2 /hpf (0-5) H 08/05/18 11:30 Urine WBC 0-2 /hpf (0-5) 08/05/18 11:30 Ur Epithelial Cells RARE /lpf (FEW) 08/05/18 11:30 Urine Bacteria FEW /hpf (NONE SEEN) 08/05/18 11:30 - Physical Exam Vitals and I&O: Vital Signs Temp 97.2 F 08/16/18 06:27 Pulse 60 08/16/18 06:27 Resp 19 08/16/18 06:27 BP 126/70 08/16/18 06:27 Pulse Ox 97 08/16/18 06:27 Intake & Output 08/15/18 08/16/18 08/16/18 18:59 06:59 18:59 Intake Total 120 Balance 120 Intake: Oral 120 Other: # Voids 4 1 # Bowel Movements 0 0 Active Medications: Current Medications Acetaminophen (Tylenol) 650 mg PO Q4HR PRN PRN Reason: Mild Pain / Temp above 100 Stop: 10/04/18 11:53 Last Admin: 08/13/18 20:26 Dose: 650 mg Al Hydrox/Mg Hydrox/Simethicone (Maalox) 30 ml PO Q4HR PRN PRN Reason: GI DISTRESS Stop: 10/04/18 11:53 Lorazepam (Ativan) 0.5 mg PO Q4HR PRN; Protocol PRN Reason: Agitation Stop: 10/04/18 11:59 Last Admin: 08/11/18 20:26 Dose: 0.5 mg Magnesium Hydroxide (Milk Of Magnesia) 30 ml PO HS PRN PRN Reason: Constipation Multivitamins/Vitamin C (Theragran) 1 tab PO DAILY LACHO Stop: 10/05/18 08:59 Last Admin: 08/15/18 08:03 Dose: 1 tab Oxcarbazepine (Trileptal) 150 mg PO TID LACHO; Protocol Stop: 10/07/18 13:59 Last Admin: 08/15/18 20:52 Dose: 150 mg Risperidone (Risperdal) 3 mg PO BID LACHO; Protocol Stop: 10/06/18 08:59 Last Admin: 08/15/18 08:03 Dose: 3 mg Zolpidem Tartrate (Ambien) 5 mg PO HS PRN PRN Reason: Insomnia Stop: 10/04/18 11:53 Last Admin: 08/15/18 20:52 Dose: 5 mg General: Alert, Other (Confused) HEENT: Atraumatic Neck: Supple Cardiovascular: Regular rate Lungs: Clear to auscultation Abdomen: Bowel sounds Extremities: Other (No edema) Neurological: Normal gait Skin: Other (Warm and dry) Psych/Mental Status: Other (Confused) Assessment/Plan - Assessment Assessment: Patient is awake, alert, calm, in no acute distress. patient continue refusing laboratory work. Dx: Increased in agitation, Asthma/COPD, Polyarthritis. - Plan Plan: Patient is follow by psychiatry, he is continue with SNF meds. Nutritional Asmnt/Malnutr-PDOC - Dietary Evaluation Malnutrition Findings (Please click <Entered> for more info): Nutritional Asmnt/Malnutrition Start: 08/09/18 14: 55 Text: Status: Complete Freq: Protocol: Document 08/09/18 14:55 LCLEVARG (Rec: 08/09/18 15:00 RUDY [email or web address]) Nutritional Asmnt/Malnutrition Patient General Information Nutritional Screening Moderate Risk Diagnosis psychosis Pertinent Medical Hx/Surgical Hx CAD, asthma, COPD, schipzohrenia, bipolar, right heel ulcer Subjective Information Per EMR, PO intake 100%. Current Diet Order/ Nutrition Support regular Pertinent Medications theragran Pertinent Labs no labs Nutritional Hx/Data Height 1.83 m Height (Calculated Centimeters) 182.9 Current Weight (lbs) 127.006 kg Weight (Calculated Kilograms) 127.0 Weight (Calculated Grams) 240736.9 [place] Body Weight 178 Body Mass Index (BMI) 38.0 Weight Status Obese GI Symptoms GI Symptoms None Last BM 08/08 Difficult in: None Skin Integrity/Comment: laceration to right foot Current %PO Good (75-100%) Estimated Nutritional Goals BEE in Kcals: Adj wt of IBW Calories/Kcals/Kg 23-27 Kcals Calculated 7888-7801 Protein: Adj wt of IBW Protein g/k.8 Protein Calculated 73 Fluid: ml 2116-2457ml (1ml/kcal) Nutritional Problem No current Nutrition Prob Problem N/A Malnutrition Alert Is there a minimum of two criteria No selected? Query Text:Check all the applicable criteria. A minimum of two criteria are recommended for diagnosis of either severe or non-severe malnutrition. Malnutrition Related to Morbid Obesity Malnutrition related to morbid obesity No Intervention/Recommendation Comments 1. Continue with regular diet as ordered. 2. Monitor PO intake, wt, labs and skin integrity 3. F/U as low risk in 7days Expected Outcomes/Goals Expected Outcomes/Goals 1. PO intake to meet at least 75% of nutritional needs. 2. Wt stability, skin to remain intact, labs to approach WNL.
[2018-08-16] MEDS: Multivitamin Tab PO SCH (09:01)
--- NOTE | 2018-08-16 21:02 | Progress Notes ---
DATE: 08/16/2018 PSYCHIATRIC PROGRESS NOTE SUBJECTIVE: Staff was spoken to. The patient is interviewed. Mood is noted to be irritable. Affect is constricted. The patient is stating that he is getting frustrated for being in here for too long. No side effects to the medications are noted. ASSESSMENT AND PLAN: net development manager has been working with the patient to find a place for this patient, so far none is available. The conservator also is looking for placement of this patient. JOB# [id number]
--- NOTE | 2018-08-17 08:31 | General Progress Note ---
Subjective - Review of Systems Service Date: 08/17/18 Subjective: Patient is confused, calm, in no acute distress. Objective - Results Recent Labs: Laboratory Last Values Urine Source MIDSTREAM 08/05/18 11:30 Urine Color LT YELLOW 08/05/18 11:30 Urine Clarity CLEAR (CLEAR) 08/05/18 11:30 Urine pH 7.0 (4.6 - 8.0) 08/05/18 11:30 Ur Specific [place] <= 1.005 (1.005-1.030) 08/05/18 11:30 Urine Protein NEGATIVE mg/dL (NEGATIVE) 08/05/18 11:30 Urine Glucose (UA) NEGATIVE mg/dL (NEGATIVE) 08/05/18 11:30 Urine Ketones NEGATIVE mg/dL (NEGATIVE) 08/05/18 11:30 Urine Blood TRACE (NEGATIVE) 08/05/18 11:30 Urine Nitrate NEGATIVE (NEGATIVE) 08/05/18 11:30 Urine Bilirubin NEGATIVE (NEGATIVE) 08/05/18 11:30 Urine Urobilinogen 0.2 E.U./dL (0.2 - 1.0) 08/05/18 11:30 Ur Leukocyte Esterase NEGATIVE (NEGATIVE) 08/05/18 11:30 Urine RBC 0-2 /hpf (0-5) H 08/05/18 11:30 Urine WBC 0-2 /hpf (0-5) 08/05/18 11:30 Ur Epithelial Cells RARE /lpf (FEW) 08/05/18 11:30 Urine Bacteria FEW /hpf (NONE SEEN) 08/05/18 11:30 - Physical Exam Vitals and I&O: Vital Signs Temp 97.8 F 08/17/18 06:17 Pulse 56 08/17/18 06:17 Resp 20 08/17/18 06:17 BP 130/82 08/17/18 06:17 Pulse Ox 95 08/17/18 06:17 Intake & Output 08/16/18 08/17/18 08/17/18 18:59 06:59 18:59 Intake Total 1000 660 Balance 1000 660 Intake: Oral 1000 660 Other: # Voids 4 2 # Bowel Movements 1 Active Medications: Current Medications Acetaminophen (Tylenol) 650 mg PO Q4HR PRN PRN Reason: Mild Pain / Temp above 100 Stop: 10/04/18 11:53 Last Admin: 08/16/18 20:23 Dose: 650 mg Al Hydrox/Mg Hydrox/Simethicone (Maalox) 30 ml PO Q4HR PRN PRN Reason: GI DISTRESS Stop: 10/04/18 11:53 Lorazepam (Ativan) 0.5 mg PO Q4HR PRN; Protocol PRN Reason: Agitation Stop: 10/04/18 11:59 Last Admin: 08/11/18 20:26 Dose: 0.5 mg Magnesium Hydroxide (Milk Of Magnesia) 30 ml PO HS PRN PRN Reason: Constipation Multivitamins/Vitamin C (Theragran) 1 tab PO DAILY LACHO Stop: 10/05/18 08:59 Last Admin: 08/16/18 09:01 Dose: 1 tab Oxcarbazepine (Trileptal) 150 mg PO TID LACHO; Protocol Stop: 10/07/18 13:59 Last Admin: 08/16/18 20:23 Dose: 150 mg Risperidone (Risperdal) 3 mg PO BID LACHO; Protocol Stop: 10/06/18 08:59 Last Admin: 08/16/18 16:10 Dose: 3 mg Zolpidem Tartrate (Ambien) 5 mg PO HS PRN PRN Reason: Insomnia Stop: 10/04/18 11:53 Last Admin: 08/16/18 20:23 Dose: 5 mg General: Alert, Other (Confused) HEENT: Atraumatic Neck: Supple Cardiovascular: Regular rate Lungs: Clear to auscultation Abdomen: Bowel sounds Extremities: Other (No edema) Neurological: Normal gait Skin: Other (Warm and dry) Psych/Mental Status: Other (Confused) Assessment/Plan - Assessment Assessment: Patient is awake, alert, calm, in no acute distress. patient continue refusing laboratory work. Dx: Increased in agitation, Asthma/COPD, Polyarthritis. - Plan Plan: Patient is follow by psychiatry, he is continue with SNF meds. Nutritional Asmnt/Malnutr-PDOC - Dietary Evaluation Malnutrition Findings (Please click <Entered> for more info): Nutritional Asmnt/Malnutrition Start: 08/09/18 14: 55 Text: Status: Complete Freq: Protocol: Document 08/09/18 14:55 RUDY (Rec: 08/09/18 15:00 RUDY [email or web address]) Nutritional Asmnt/Malnutrition Patient General Information Nutritional Screening Moderate Risk Diagnosis psychosis Pertinent Medical Hx/Surgical Hx CAD, asthma, COPD, schipzohrenia, bipolar, right heel ulcer Subjective Information Per EMR, PO intake 100%. Current Diet Order/ Nutrition Support regular Pertinent Medications theragran Pertinent Labs no labs Nutritional Hx/Data Height 1.83 m Height (Calculated Centimeters) 182.9 Current Weight (lbs) 127.006 kg Weight (Calculated Kilograms) 127.0 Weight (Calculated Grams) 532874.9 [place] Body Weight 178 Body Mass Index (BMI) 38.0 Weight Status Obese GI Symptoms GI Symptoms None Last BM 08/08 Difficult in: None Skin Integrity/Comment: laceration to right foot Current %PO Good (75-100%) Estimated Nutritional Goals BEE in Kcals: Adj wt of IBW Calories/Kcals/Kg 23-27 Kcals Calculated 5596-1426 Protein: Adj wt of IBW Protein g/k.8 Protein Calculated 73 Fluid: ml 2116-2457ml (1ml/kcal) Nutritional Problem No current Nutrition Prob Problem N/A Malnutrition Alert Is there a minimum of two criteria No selected? Query Text:Check all the applicable criteria. A minimum of two criteria are recommended for diagnosis of either severe or non-severe malnutrition. Malnutrition Related to Morbid Obesity Malnutrition related to morbid obesity No Intervention/Recommendation Comments 1. Continue with regular diet as ordered. 2. Monitor PO intake, wt, labs and skin integrity 3. F/U as low risk in 7days Expected Outcomes/Goals Expected Outcomes/Goals 1. PO intake to meet at least 75% of nutritional needs. 2. Wt stability, skin to remain intact, labs to approach WNL.
[2018-08-17] MEDS: Multivitamin Tab PO SCH (08:53)
--- NOTE | 2018-08-17 11:16 | Progress Notes ---
DATE: 08/17/2018 SUBJECTIVE: Staff was spoken to. The patient is interviewed. Mood is noted to be irritable. Affect is constricted. The patient is getting easily frustrated. The patient is stating that he has been patiently waiting to look for the placement, so far nothing has been available. The patient is currently on oxcarbazepine and the risperidone and the patient has been able to tolerate and hence it is decided to decrease the risperidone to 2 mg twice a day and follow the patient up with the supportive therapy and the patient is being closely monitored at this time. ASSESSMENT: The patient is still paranoid. PLAN: To continue the patient with the supportive therapy. I encouraged the patient to verbalize the concerns and await for placement of this patient. JOB# [id number]
[2018-08-18] MEDS: Multivitamin Tab PO SCH (08:26)
--- NOTE | 2018-08-18 21:51 | Progress Notes ---
DATE: 08/18/2018 PSYCHIATRIC PROGRESS NOTE SUBJECTIVE: Staff was spoken to. The patient is interviewed. Mood is noted to be irritable. Affect is constricted. Insight and judgment are noted to be still impaired. Impulse control is noted to be poor. Coping skills are also noted to be very poor. The patient has been having poor coping skills. No side effects to the medications are noted. The patient is stating that he is getting frustrated for being in here for too long and would like to find out when he can get out of here. The patient is currently on Trileptal and risperidone and has been able to tolerate. No major behavioral problems are noted. ASSESSMENT: The patient is awaiting for placement. PLAN: To continue the patient with the current medications and followup. JOB# [id number]
[2018-08-19] MEDS: Multivitamin Tab PO SCH (08:30)
--- NOTE | 2018-08-19 08:35 | General Progress Note ---
Subjective - Review of Systems Service Date: 08/19/18 Subjective: Patient is confused, calm, in no acute distress. Objective - Results Recent Labs: Laboratory Last Values Urine Source MIDSTREAM 08/05/18 11:30 Urine Color LT YELLOW 08/05/18 11:30 Urine Clarity CLEAR (CLEAR) 08/05/18 11:30 Urine pH 7.0 (4.6 - 8.0) 08/05/18 11:30 Ur Specific [place] <= 1.005 (1.005-1.030) 08/05/18 11:30 Urine Protein NEGATIVE mg/dL (NEGATIVE) 08/05/18 11:30 Urine Glucose (UA) NEGATIVE mg/dL (NEGATIVE) 08/05/18 11:30 Urine Ketones NEGATIVE mg/dL (NEGATIVE) 08/05/18 11:30 Urine Blood TRACE (NEGATIVE) 08/05/18 11:30 Urine Nitrate NEGATIVE (NEGATIVE) 08/05/18 11:30 Urine Bilirubin NEGATIVE (NEGATIVE) 08/05/18 11:30 Urine Urobilinogen 0.2 E.U./dL (0.2 - 1.0) 08/05/18 11:30 Ur Leukocyte Esterase NEGATIVE (NEGATIVE) 08/05/18 11:30 Urine RBC 0-2 /hpf (0-5) H 08/05/18 11:30 Urine WBC 0-2 /hpf (0-5) 08/05/18 11:30 Ur Epithelial Cells RARE /lpf (FEW) 08/05/18 11:30 Urine Bacteria FEW /hpf (NONE SEEN) 08/05/18 11:30 - Physical Exam Vitals and I&O: Vital Signs Temp 97.2 F 08/19/18 06:33 Pulse 64 08/19/18 06:33 Resp 20 08/19/18 06:33 BP 117/68 08/19/18 06:33 Pulse Ox 96 08/19/18 06:33 Intake & Output 08/18/18 08/19/18 08/19/18 18:59 06:59 18:59 Intake Total 1200 120 Balance 1200 120 Intake: Oral 1200 120 Other: # Voids 3 # Bowel Movements 1 Active Medications: Current Medications Acetaminophen (Tylenol) 650 mg PO Q4HR PRN PRN Reason: Mild Pain / Temp above 100 Stop: 10/04/18 11:53 Last Admin: 08/18/18 16:45 Dose: 650 mg Al Hydrox/Mg Hydrox/Simethicone (Maalox) 30 ml PO Q4HR PRN PRN Reason: GI DISTRESS Stop: 10/04/18 11:53 Lorazepam (Ativan) 0.5 mg PO Q4HR PRN; Protocol PRN Reason: Agitation Stop: 10/04/18 11:59 Last Admin: 08/11/18 20:26 Dose: 0.5 mg Magnesium Hydroxide (Milk Of Magnesia) 30 ml PO HS PRN PRN Reason: Constipation Multivitamins/Vitamin C (Theragran) 1 tab PO DAILY LACHO Stop: 10/05/18 08:59 Last Admin: 08/19/18 08:30 Dose: 1 tab Oxcarbazepine (Trileptal) 150 mg PO TID LACHO; Protocol Stop: 10/07/18 13:59 Last Admin: 08/19/18 08:30 Dose: 150 mg Risperidone (Risperdal) 2 mg PO BID LACHO; Protocol Stop: 10/16/18 16:59 Last Admin: 08/19/18 08:30 Dose: 2 mg Zolpidem Tartrate (Ambien) 5 mg PO HS PRN PRN Reason: Insomnia Stop: 10/04/18 11:53 Last Admin: 08/18/18 20:50 Dose: 5 mg General: Alert, Other (Confused) HEENT: Atraumatic Neck: Supple Cardiovascular: Regular rate Lungs: Clear to auscultation Abdomen: Bowel sounds Extremities: Other (No edema) Neurological: Normal gait Skin: Other (Warm and dry) Psych/Mental Status: Other (Confused) Assessment/Plan - Assessment Assessment: Patient is awake, alert, calm, in no acute distress. patient continue refusing laboratory work. Dx: Increased in agitation, Asthma/COPD, Polyarthritis. - Plan Plan: Patient is follow by psychiatry, he is continue with SNF meds. Nutritional Asmnt/Malnutr-PDOC - Dietary Evaluation Malnutrition Findings (Please click <Entered> for more info): Nutritional Asmnt/Malnutrition Start: 08/09/18 14: 55 Text: Status: Complete Freq: Protocol: Document 08/09/18 14:55 RUDY (Rec: 08/09/18 15:00 RUDY [email or web address]) Nutritional Asmnt/Malnutrition Patient General Information Nutritional Screening Moderate Risk Diagnosis psychosis Pertinent Medical Hx/Surgical Hx CAD, asthma, COPD, schipzohrenia, bipolar, right heel ulcer Subjective Information Per EMR, PO intake 100%. Current Diet Order/ Nutrition Support regular Pertinent Medications theragran Pertinent Labs no labs Nutritional Hx/Data Height 1.83 m Height (Calculated Centimeters) 182.9 Current Weight (lbs) 127.006 kg Weight (Calculated Kilograms) 127.0 Weight (Calculated Grams) 580120.9 [place] Body Weight 178 Body Mass Index (BMI) 38.0 Weight Status Obese GI Symptoms GI Symptoms None Last BM 08/08 Difficult in: None Skin Integrity/Comment: laceration to right foot Current %PO Good (75-100%) Estimated Nutritional Goals BEE in Kcals: Adj wt of IBW Calories/Kcals/Kg 23-27 Kcals Calculated 6183-6990 Protein: Adj wt of IBW Protein g/k.8 Protein Calculated 73 Fluid: ml 2116-2457ml (1ml/kcal) Nutritional Problem No current Nutrition Prob Problem N/A Malnutrition Alert Is there a minimum of two criteria No selected? Query Text:Check all the applicable criteria. A minimum of two criteria are recommended for diagnosis of either severe or non-severe malnutrition. Malnutrition Related to Morbid Obesity Malnutrition related to morbid obesity No Intervention/Recommendation Comments 1. Continue with regular diet as ordered. 2. Monitor PO intake, wt, labs and skin integrity 3. F/U as low risk in 7days Expected Outcomes/Goals Expected Outcomes/Goals 1. PO intake to meet at least 75% of nutritional needs. 2. Wt stability, skin to remain intact, labs to approach WNL.
--- NOTE | 2018-08-19 12:27 | Progress Notes ---
DATE: 08/19/2018 SUBJECTIVE: Staff was spoken to. The patient is interviewed. Mood is noted to be dysphoric. Coping skills are noted to be improving. The patient is currently on Risperdal 2 mg twice a day and oxcarbazepine 150 mg 3 times a day and has been able to tolerate the medications. No side effects to medications are noted. The patient is not presenting with any threats to harm himself or others. The patient has been getting easily frustrated and upset for being in here for too long. ASSESSMENT: The patient is still having difficult time to cope with the stress. PLAN: To increase the dose on the Trileptal to 300 mg twice a day and follow the patient with the supportive therapy. JOB# [id number]
[2018-08-20] MEDS: Multivitamin Tab PO SCH (08:18)
--- NOTE | 2018-08-20 08:35 | General Progress Note ---
Subjective - Review of Systems Service Date: 08/20/18 Subjective: Patient is confused, calm, in no acute distress. Objective - Results Recent Labs: Laboratory Last Values Urine Source MIDSTREAM 08/05/18 11:30 Urine Color LT YELLOW 08/05/18 11:30 Urine Clarity CLEAR (CLEAR) 08/05/18 11:30 Urine pH 7.0 (4.6 - 8.0) 08/05/18 11:30 Ur Specific [place] <= 1.005 (1.005-1.030) 08/05/18 11:30 Urine Protein NEGATIVE mg/dL (NEGATIVE) 08/05/18 11:30 Urine Glucose (UA) NEGATIVE mg/dL (NEGATIVE) 08/05/18 11:30 Urine Ketones NEGATIVE mg/dL (NEGATIVE) 08/05/18 11:30 Urine Blood TRACE (NEGATIVE) 08/05/18 11:30 Urine Nitrate NEGATIVE (NEGATIVE) 08/05/18 11:30 Urine Bilirubin NEGATIVE (NEGATIVE) 08/05/18 11:30 Urine Urobilinogen 0.2 E.U./dL (0.2 - 1.0) 08/05/18 11:30 Ur Leukocyte Esterase NEGATIVE (NEGATIVE) 08/05/18 11:30 Urine RBC 0-2 /hpf (0-5) H 08/05/18 11:30 Urine WBC 0-2 /hpf (0-5) 08/05/18 11:30 Ur Epithelial Cells RARE /lpf (FEW) 08/05/18 11:30 Urine Bacteria FEW /hpf (NONE SEEN) 08/05/18 11:30 - Physical Exam Vitals and I&O: Vital Signs Temp 97.1 F 08/20/18 06:03 Pulse 53 08/20/18 06:03 Resp 18 08/20/18 06:03 BP 121/66 08/20/18 06:03 Pulse Ox 95 08/20/18 06:03 Intake & Output 08/19/18 08/20/18 08/20/18 18:59 06:59 18:59 Intake Total 1200 500 Balance 1200 500 Intake: Oral 1200 500 Other: # Voids 3 4 # Bowel Movements 1 0 Active Medications: Current Medications Acetaminophen (Tylenol) 650 mg PO Q4HR PRN PRN Reason: Mild Pain / Temp above 100 Stop: 10/04/18 11:53 Last Admin: 08/19/18 20:15 Dose: 650 mg Al Hydrox/Mg Hydrox/Simethicone (Maalox) 30 ml PO Q4HR PRN PRN Reason: GI DISTRESS Stop: 10/04/18 11:53 Lorazepam (Ativan) 0.5 mg PO Q4HR PRN; Protocol PRN Reason: Agitation Stop: 10/04/18 11:59 Last Admin: 08/11/18 20:26 Dose: 0.5 mg Magnesium Hydroxide (Milk Of Magnesia) 30 ml PO HS PRN PRN Reason: Constipation Multivitamins/Vitamin C (Theragran) 1 tab PO DAILY [facility]O Stop: 10/05/18 08:59 Last Admin: 08/20/18 08:18 Dose: 1 tab Oxcarbazepine (Trileptal) 300 mg PO BID [facility]; Protocol Stop: 10/18/18 16:59 Last Admin: 08/20/18 08:18 Dose: 300 mg Risperidone (Risperdal) 2 mg PO BID [facility]; Protocol Stop: 10/16/18 16:59 Last Admin: 08/20/18 08:19 Dose: 2 mg Zolpidem Tartrate (Ambien) 5 mg PO HS PRN PRN Reason: Insomnia Stop: 10/04/18 11:53 Last Admin: 08/18/18 20:50 Dose: 5 mg General: Alert, Other (Confused) HEENT: Atraumatic Neck: Supple Cardiovascular: Regular rate Lungs: Clear to auscultation Abdomen: Bowel sounds Extremities: Other (No edema) Neurological: Normal gait Skin: Other (Warm and dry) Psych/Mental Status: Other (Confused) Assessment/Plan - Assessment Assessment: Patient is awake, alert, calm, in no acute distress. patient continue refusing laboratory work. Dx: Increased in agitation, Asthma/COPD, Polyarthritis. - Plan Plan: Patient is follow by psychiatry, he is continue with SNF meds. Nutritional Asmnt/Malnutr-PDOC - Dietary Evaluation Malnutrition Findings (Please click <Entered> for more info): Nutritional Asmnt/Malnutrition Start: 08/09/18 14: 55 Text: Status: Complete Freq: Protocol: Document 08/09/18 14:55 RUDY (Rec: 08/09/18 15:00 RUDY [email or web address]) Nutritional Asmnt/Malnutrition Patient General Information Nutritional Screening Moderate Risk Diagnosis psychosis Pertinent Medical Hx/Surgical Hx CAD, asthma, COPD, schipzohrenia, bipolar, right heel ulcer Subjective Information Per EMR, PO intake 100%. Current Diet Order/ Nutrition Support regular Pertinent Medications theragran Pertinent Labs no labs Nutritional Hx/Data Height 1.83 m Height (Calculated Centimeters) 182.9 Current Weight (lbs) 127.006 kg Weight (Calculated Kilograms) 127.0 Weight (Calculated Grams) 861836.9 [place] Body Weight 178 Body Mass Index (BMI) 38.0 Weight Status Obese GI Symptoms GI Symptoms None Last BM 08/08 Difficult in: None Skin Integrity/Comment: laceration to right foot Current %PO Good (75-100%) Estimated Nutritional Goals BEE in Kcals: Adj wt of IBW Calories/Kcals/Kg 23-27 Kcals Calculated 7543-8786 Protein: Adj wt of IBW Protein g/k.8 Protein Calculated 73 Fluid: ml 2116-2457ml (1ml/kcal) Nutritional Problem No current Nutrition Prob Problem N/A Malnutrition Alert Is there a minimum of two criteria No selected? Query Text:Check all the applicable criteria. A minimum of two criteria are recommended for diagnosis of either severe or non-severe malnutrition. Malnutrition Related to Morbid Obesity Malnutrition related to morbid obesity No Intervention/Recommendation Comments 1. Continue with regular diet as ordered. 2. Monitor PO intake, wt, labs and skin integrity 3. F/U as low risk in 7days Expected Outcomes/Goals Expected Outcomes/Goals 1. PO intake to meet at least 75% of nutritional needs. 2. Wt stability, skin to remain intact, labs to approach WNL.
--- NOTE | 2018-08-20 11:51 | Progress Notes ---
DATE: 08/20/2018 SUBJECTIVE: Staff was spoken to. The patient is interviewed. Mood is noted to be irritable. Affect is constricted. Coping skills at this time are noted to be still poor. Insight and judgment are noted to be limited. The patient has been getting easily frustrated from being able to find a place to go. No side effects to the medications are noted. ASSESSMENT: The patient is still psychotic. PLAN: To continue the patient with the supportive therapy, encouraged the patient to verbalize the concerns rather than to act out. JOB# [id number]
[2018-08-21] MEDS: Multivitamin Tab PO SCH (08:20)
--- NOTE | 2018-08-21 10:34 | General Progress Note ---
Subjective - Review of Systems Service Date: 08/21/18 Subjective: Patient is confused, calm, in no acute distress Objective - Results Recent Labs: Laboratory Last Values Urine Source MIDSTREAM 08/05/18 11:30 Urine Color LT YELLOW 08/05/18 11:30 Urine Clarity CLEAR (CLEAR) 08/05/18 11:30 Urine pH 7.0 (4.6 - 8.0) 08/05/18 11:30 Ur Specific [place] <= 1.005 (1.005-1.030) 08/05/18 11:30 Urine Protein NEGATIVE mg/dL (NEGATIVE) 08/05/18 11:30 Urine Glucose (UA) NEGATIVE mg/dL (NEGATIVE) 08/05/18 11:30 Urine Ketones NEGATIVE mg/dL (NEGATIVE) 08/05/18 11:30 Urine Blood TRACE (NEGATIVE) 08/05/18 11:30 Urine Nitrate NEGATIVE (NEGATIVE) 08/05/18 11:30 Urine Bilirubin NEGATIVE (NEGATIVE) 08/05/18 11:30 Urine Urobilinogen 0.2 E.U./dL (0.2 - 1.0) 08/05/18 11:30 Ur Leukocyte Esterase NEGATIVE (NEGATIVE) 08/05/18 11:30 Urine RBC 0-2 /hpf (0-5) H 08/05/18 11:30 Urine WBC 0-2 /hpf (0-5) 08/05/18 11:30 Ur Epithelial Cells RARE /lpf (FEW) 08/05/18 11:30 Urine Bacteria FEW /hpf (NONE SEEN) 08/05/18 11:30 - Physical Exam Vitals and I&O: Vital Signs Temp 97.9 F 08/21/18 06:28 Pulse 61 08/21/18 06:28 Resp 20 08/21/18 06:28 BP 101/59 08/21/18 06:28 Pulse Ox 96 08/21/18 06:28 Intake & Output 08/20/18 08/21/18 08/21/18 18:59 06:59 18:59 Intake Total 1200 Balance 1200 Intake: Oral 1200 Other: # Bowel Movements 1 Active Medications: Current Medications Acetaminophen (Tylenol) 650 mg PO Q4HR PRN PRN Reason: Mild Pain / Temp above 100 Stop: 10/04/18 11:53 Last Admin: 08/20/18 15:00 Dose: 650 mg Al Hydrox/Mg Hydrox/Simethicone (Maalox) 30 ml PO Q4HR PRN PRN Reason: GI DISTRESS Stop: 10/04/18 11:53 Lorazepam (Ativan) 0.5 mg PO Q4HR PRN; Protocol PRN Reason: Agitation Stop: 10/04/18 11:59 Last Admin: 08/11/18 20:26 Dose: 0.5 mg Magnesium Hydroxide (Milk Of Magnesia) 30 ml PO HS PRN PRN Reason: Constipation Multivitamins/Vitamin C (Theragran) 1 tab PO DAILY [facility] Stop: 10/05/18 08:59 Last Admin: 08/21/18 08:20 Dose: 1 tab Oxcarbazepine (Trileptal) 300 mg PO BID [facility]; Protocol Stop: 10/18/18 16:59 Last Admin: 08/21/18 08:20 Dose: 300 mg Risperidone (Risperdal) 2 mg PO BID [facility]; Protocol Stop: 10/16/18 16:59 Last Admin: 08/21/18 08:20 Dose: 2 mg Zolpidem Tartrate (Ambien) 5 mg PO HS PRN PRN Reason: Insomnia Stop: 10/04/18 11:53 Last Admin: 08/18/18 20:50 Dose: 5 mg General: Alert, Other (Confused) HEENT: Atraumatic Neck: Supple Cardiovascular: Regular rate Lungs: Clear to auscultation Abdomen: Bowel sounds Extremities: Other (No edema) Neurological: Normal gait Skin: Other (Warm and dry) Psych/Mental Status: Other (Confused) Assessment/Plan - Assessment Assessment: Patient is awake, alert, calm, in no acute distress. patient continue refusing laboratory work. Dx: Increased in agitation, Asthma/COPD, Polyarthritis. - Plan Plan: Patient is follow by psychiatry, he is continue with SNF meds. Nutritional Asmnt/Malnutr-PDOC - Dietary Evaluation Malnutrition Findings (Please click <Entered> for more info): Nutritional Asmnt/Malnutrition Start: 08/09/18 14: 55 Text: Status: Complete Freq: Protocol: Document 08/09/18 14:55 LCLEVARG (Rec: 08/09/18 15:00 RUDY [email or web address]) Nutritional Asmnt/Malnutrition Patient General Information Nutritional Screening Moderate Risk Diagnosis psychosis Pertinent Medical Hx/Surgical Hx CAD, asthma, COPD, schipzohrenia, bipolar, right heel ulcer Subjective Information Per EMR, PO intake 100%. Current Diet Order/ Nutrition Support regular Pertinent Medications theragran Pertinent Labs no labs Nutritional Hx/Data Height 1.83 m Height (Calculated Centimeters) 182.9 Current Weight (lbs) 127.006 kg Weight (Calculated Kilograms) 127.0 Weight (Calculated Grams) 994736.9 [place] Body Weight 178 Body Mass Index (BMI) 38.0 Weight Status Obese GI Symptoms GI Symptoms None Last BM 08/08 Difficult in: None Skin Integrity/Comment: laceration to right foot Current %PO Good (75-100%) Estimated Nutritional Goals BEE in Kcals: Adj wt of IBW Calories/Kcals/Kg 23-27 Kcals Calculated 0508-2722 Protein: Adj wt of IBW Protein g/k.8 Protein Calculated 73 Fluid: ml 2116-2457ml (1ml/kcal) Nutritional Problem No current Nutrition Prob Problem N/A Malnutrition Alert Is there a minimum of two criteria No selected? Query Text:Check all the applicable criteria. A minimum of two criteria are recommended for diagnosis of either severe or non-severe malnutrition. Malnutrition Related to Morbid Obesity Malnutrition related to morbid obesity No Intervention/Recommendation Comments 1. Continue with regular diet as ordered. 2. Monitor PO intake, wt, labs and skin integrity 3. F/U as low risk in 7days Expected Outcomes/Goals Expected Outcomes/Goals 1. PO intake to meet at least 75% of nutritional needs. 2. Wt stability, skin to remain intact, labs to approach WNL.
--- NOTE | 2018-08-21 15:52 | Progress Notes ---
DATE: 08/21/2018 PSYCHIATRIC PROGRESS NOTE PROGRESS ON THE UNIT: Staff was spoken to. The patient is interviewed. Mood is noted to be less irritable. Affect is appropriate. The patient is pacing on the unit. gas line repairer have been working with the patient's conservator to look for placement for this patient; so far, none is available. ASSESSMENT: The patient is paranoid, but the impulsivity is under control. PLAN: To continue the patient with Trileptal and Risperdal and follow the patient up. JOB# [id number]
[2018-08-22] MEDS: Multivitamin Tab PO SCH (08:15)
--- NOTE | 2018-08-22 09:14 | General Progress Note ---
Subjective - Review of Systems Service Date: 08/22/18 Subjective: Patient is confused, calm, in no acute distress. Objective - Results Recent Labs: Laboratory Last Values Urine Source MIDSTREAM 08/05/18 11:30 Urine Color LT YELLOW 08/05/18 11:30 Urine Clarity CLEAR (CLEAR) 08/05/18 11:30 Urine pH 7.0 (4.6 - 8.0) 08/05/18 11:30 Ur Specific [place] <= 1.005 (1.005-1.030) 08/05/18 11:30 Urine Protein NEGATIVE mg/dL (NEGATIVE) 08/05/18 11:30 Urine Glucose (UA) NEGATIVE mg/dL (NEGATIVE) 08/05/18 11:30 Urine Ketones NEGATIVE mg/dL (NEGATIVE) 08/05/18 11:30 Urine Blood TRACE (NEGATIVE) 08/05/18 11:30 Urine Nitrate NEGATIVE (NEGATIVE) 08/05/18 11:30 Urine Bilirubin NEGATIVE (NEGATIVE) 08/05/18 11:30 Urine Urobilinogen 0.2 E.U./dL (0.2 - 1.0) 08/05/18 11:30 Ur Leukocyte Esterase NEGATIVE (NEGATIVE) 08/05/18 11:30 Urine RBC 0-2 /hpf (0-5) H 08/05/18 11:30 Urine WBC 0-2 /hpf (0-5) 08/05/18 11:30 Ur Epithelial Cells RARE /lpf (FEW) 08/05/18 11:30 Urine Bacteria FEW /hpf (NONE SEEN) 08/05/18 11:30 - Physical Exam Vitals and I&O: Vital Signs Temp 97.4 F 08/21/18 14:00 Pulse 64 08/21/18 14:00 Resp 20 08/21/18 20:00 BP 113/51 08/21/18 14:00 Pulse Ox 96 08/21/18 14:00 Intake & Output 08/21/18 08/22/18 08/22/18 18:59 06:59 18:59 Intake Total 1200 Balance 1200 Intake: Oral 1200 Other: # Bowel Movements 1 Active Medications: Current Medications Acetaminophen (Tylenol) 650 mg PO Q4HR PRN PRN Reason: Mild Pain / Temp above 100 Stop: 10/04/18 11:53 Last Admin: 08/20/18 15:00 Dose: 650 mg Al Hydrox/Mg Hydrox/Simethicone (Maalox) 30 ml PO Q4HR PRN PRN Reason: GI DISTRESS Stop: 10/04/18 11:53 Lorazepam (Ativan) 0.5 mg PO Q4HR PRN; Protocol PRN Reason: Agitation Stop: 10/04/18 11:59 Last Admin: 08/11/18 20:26 Dose: 0.5 mg Magnesium Hydroxide (Milk Of Magnesia) 30 ml PO HS PRN PRN Reason: Constipation Multivitamins/Vitamin C (Theragran) 1 tab PO DAILY [facility]O Stop: 10/05/18 08:59 Last Admin: 08/22/18 08:15 Dose: 1 tab Oxcarbazepine (Trileptal) 300 mg PO BID [facility]; Protocol Stop: 10/18/18 16:59 Last Admin: 08/22/18 08:15 Dose: 300 mg Risperidone (Risperdal) 2 mg PO BID [facility]; Protocol Stop: 10/16/18 16:59 Last Admin: 08/22/18 08:15 Dose: 2 mg Zolpidem Tartrate (Ambien) 5 mg PO HS PRN PRN Reason: Insomnia Stop: 10/04/18 11:53 Last Admin: 08/21/18 20:54 Dose: 5 mg General: Alert, Other (Confused) HEENT: Atraumatic Neck: Supple Cardiovascular: Regular rate Lungs: Clear to auscultation Abdomen: Bowel sounds Extremities: Other (No edema) Neurological: Normal gait Skin: Other (Warm and dry) Psych/Mental Status: Other (Confused) Assessment/Plan - Assessment Assessment: Patient is awake, alert, calm, in no acute distress. patient continue refusing laboratory work. Dx: Increased in agitation, Asthma/COPD, Polyarthritis. - Plan Plan: Patient is follow by psychiatry, he is continue with SNF meds. Nutritional Asmnt/Malnutr-PDOC - Dietary Evaluation Malnutrition Findings (Please click <Entered> for more info): Nutritional Asmnt/Malnutrition Start: 08/09/18 14: 55 Text: Status: Complete Freq: Protocol: Document 08/09/18 14:55 LCLEVARG (Rec: 08/09/18 15:00 RUDY [email or web address]) Nutritional Asmnt/Malnutrition Patient General Information Nutritional Screening Moderate Risk Diagnosis psychosis Pertinent Medical Hx/Surgical Hx CAD, asthma, COPD, schipzohrenia, bipolar, right heel ulcer Subjective Information Per EMR, PO intake 100%. Current Diet Order/ Nutrition Support regular Pertinent Medications theragran Pertinent Labs no labs Nutritional Hx/Data Height 1.83 m Height (Calculated Centimeters) 182.9 Current Weight (lbs) 127.006 kg Weight (Calculated Kilograms) 127.0 Weight (Calculated Grams) 127035.9 [place] Body Weight 178 Body Mass Index (BMI) 38.0 Weight Status Obese GI Symptoms GI Symptoms None Last BM 08/08 Difficult in: None Skin Integrity/Comment: laceration to right foot Current %PO Good (75-100%) Estimated Nutritional Goals BEE in Kcals: Adj wt of IBW Calories/Kcals/Kg 23-27 Kcals Calculated 9276-3934 Protein: Adj wt of IBW Protein g/k.8 Protein Calculated 73 Fluid: ml 2116-2457ml (1ml/kcal) Nutritional Problem No current Nutrition Prob Problem N/A Malnutrition Alert Is there a minimum of two criteria No selected? Query Text:Check all the applicable criteria. A minimum of two criteria are recommended for diagnosis of either severe or non-severe malnutrition. Malnutrition Related to Morbid Obesity Malnutrition related to morbid obesity No Intervention/Recommendation Comments 1. Continue with regular diet as ordered. 2. Monitor PO intake, wt, labs and skin integrity 3. F/U as low risk in 7days Expected Outcomes/Goals Expected Outcomes/Goals 1. PO intake to meet at least 75% of nutritional needs. 2. Wt stability, skin to remain intact, labs to approach WNL.
--- NOTE | 2018-08-22 20:09 | Progress Notes ---
DATE: 08/22/2018 SUBJECTIVE: Staff was spoken to. The patient is interviewed. Mood is noted to be dysphoric. The patient is pacing on the unit. Speech is noted to be ____. Insight and judgment are noted to be improving. Impulse control is also noted to be fair. No major side effects to the medications are noted. The patient is currently on Trileptal and Risperdal. The patient is getting frustrated that he is not able to find a place to stay. ASSESSMENT: The patient is still awaiting placement. PLAN: To continue the patient with the supportive therapy and followup. JOB# [id number]
--- NOTE | 2018-08-23 08:55 | General Progress Note ---
Subjective - Review of Systems Service Date: 08/23/18 Subjective: Patient is confused, calm, in no acute distress. Objective - Results Recent Labs: Laboratory Last Values Urine Source MIDSTREAM 08/05/18 11:30 Urine Color LT YELLOW 08/05/18 11:30 Urine Clarity CLEAR (CLEAR) 08/05/18 11:30 Urine pH 7.0 (4.6 - 8.0) 08/05/18 11:30 Ur Specific [place] <= 1.005 (1.005-1.030) 08/05/18 11:30 Urine Protein NEGATIVE mg/dL (NEGATIVE) 08/05/18 11:30 Urine Glucose (UA) NEGATIVE mg/dL (NEGATIVE) 08/05/18 11:30 Urine Ketones NEGATIVE mg/dL (NEGATIVE) 08/05/18 11:30 Urine Blood TRACE (NEGATIVE) 08/05/18 11:30 Urine Nitrate NEGATIVE (NEGATIVE) 08/05/18 11:30 Urine Bilirubin NEGATIVE (NEGATIVE) 08/05/18 11:30 Urine Urobilinogen 0.2 E.U./dL (0.2 - 1.0) 08/05/18 11:30 Ur Leukocyte Esterase NEGATIVE (NEGATIVE) 08/05/18 11:30 Urine RBC 0-2 /hpf (0-5) H 08/05/18 11:30 Urine WBC 0-2 /hpf (0-5) 08/05/18 11:30 Ur Epithelial Cells RARE /lpf (FEW) 08/05/18 11:30 Urine Bacteria FEW /hpf (NONE SEEN) 08/05/18 11:30 - Physical Exam Vitals and I&O: Vital Signs Temp 97.3 F 08/23/18 06:00 Pulse 68 08/23/18 06:00 Resp 19 08/23/18 06:00 BP 129/62 08/23/18 06:00 Pulse Ox 96 08/23/18 06:00 Intake & Output 08/22/18 08/23/18 08/23/18 18:59 06:59 18:59 Intake Total 120 Balance 120 Intake: Oral 120 Other: # Voids 3 # Bowel Movements 1 0 Active Medications: Current Medications Acetaminophen (Tylenol) 650 mg PO Q4HR PRN PRN Reason: Mild Pain / Temp above 100 Stop: 10/04/18 11:53 Last Admin: 08/22/18 20:19 Dose: 650 mg Al Hydrox/Mg Hydrox/Simethicone (Maalox) 30 ml PO Q4HR PRN PRN Reason: GI DISTRESS Stop: 10/04/18 11:53 Lorazepam (Ativan) 0.5 mg PO Q4HR PRN; Protocol PRN Reason: Agitation Stop: 10/04/18 11:59 Last Admin: 08/11/18 20:26 Dose: 0.5 mg Magnesium Hydroxide (Milk Of Magnesia) 30 ml PO HS PRN PRN Reason: Constipation Multivitamins/Vitamin C (Theragran) 1 tab PO DAILY [facility] Stop: 10/05/18 08:59 Last Admin: 08/22/18 08:15 Dose: 1 tab Oxcarbazepine (Trileptal) 300 mg PO BID [facility]; Protocol Stop: 10/18/18 16:59 Last Admin: 08/22/18 16:49 Dose: 300 mg Risperidone (Risperdal) 2 mg PO BID [facility]; Protocol Stop: 10/16/18 16:59 Last Admin: 08/22/18 16:49 Dose: 2 mg Zolpidem Tartrate (Ambien) 5 mg PO HS PRN PRN Reason: Insomnia Stop: 10/04/18 11:53 Last Admin: 08/22/18 20:28 Dose: 5 mg General: Alert, Other (Confused) HEENT: Atraumatic Neck: Supple Cardiovascular: Regular rate Lungs: Clear to auscultation Abdomen: Bowel sounds Extremities: Other (No edema) Neurological: Normal gait Skin: Other (Warm and dry) Psych/Mental Status: Other (Confused) Assessment/Plan - Assessment Assessment: Patient is awake, alert, calm, in no acute distress. patient continue refusing laboratory work. Dx: Increased in agitation, Asthma/COPD, Polyarthritis. - Plan Plan: Patient is follow by psychiatry, he is continue with SNF meds. Nutritional Asmnt/Malnutr-PDOC - Dietary Evaluation Malnutrition Findings (Please click <Entered> for more info): Nutritional Asmnt/Malnutrition Start: 08/09/18 14: 55 Text: Status: Complete Freq: Protocol: Document 08/09/18 14:55 LCLEVARG (Rec: 08/09/18 15:00 RUDY [email or web address]) Nutritional Asmnt/Malnutrition Patient General Information Nutritional Screening Moderate Risk Diagnosis psychosis Pertinent Medical Hx/Surgical Hx CAD, asthma, COPD, schipzohrenia, bipolar, right heel ulcer Subjective Information Per EMR, PO intake 100%. Current Diet Order/ Nutrition Support regular Pertinent Medications theragran Pertinent Labs no labs Nutritional Hx/Data Height 1.83 m Height (Calculated Centimeters) 182.9 Current Weight (lbs) 127.006 kg Weight (Calculated Kilograms) 127.0 Weight (Calculated Grams) 002260.9 [place] Body Weight 178 Body Mass Index (BMI) 38.0 Weight Status Obese GI Symptoms GI Symptoms None Last BM 08/08 Difficult in: None Skin Integrity/Comment: laceration to right foot Current %PO Good (75-100%) Estimated Nutritional Goals BEE in Kcals: Adj wt of IBW Calories/Kcals/Kg 23-27 Kcals Calculated 4458-0908 Protein: Adj wt of IBW Protein g/k.8 Protein Calculated 73 Fluid: ml 2116-2457ml (1ml/kcal) Nutritional Problem No current Nutrition Prob Problem N/A Malnutrition Alert Is there a minimum of two criteria No selected? Query Text:Check all the applicable criteria. A minimum of two criteria are recommended for diagnosis of either severe or non-severe malnutrition. Malnutrition Related to Morbid Obesity Malnutrition related to morbid obesity No Intervention/Recommendation Comments 1. Continue with regular diet as ordered. 2. Monitor PO intake, wt, labs and skin integrity 3. F/U as low risk in 7days Expected Outcomes/Goals Expected Outcomes/Goals 1. PO intake to meet at least 75% of nutritional needs. 2. Wt stability, skin to remain intact, labs to approach WNL.
[2018-08-23] MEDS: Multivitamin Tab PO SCH (09:47)
--- NOTE | 2018-08-24 02:17 | Progress Notes ---
DATE: 08/23/2018 PSYCHIATRIC PROGRESS NOTE SUBJECTIVE: Staff was spoken to. The patient is interviewed. Mood is noted to be irritable. Affect is constricted. The patient is getting frustrated for being in here for too long. The patient has no place to return to. The patient is able to tolerate the Risperdal and oxcarbazepine. No side effects to the medications are noted. The patient is on a conservatorship and the contributor have been trying to look for placement for this patient, so far no place is available. The patient is going to be closely monitored. I encouraged to verbalize the concerns rather than to act out once stabilized. Once the placement is available, the patient is going to be discharged. JOB# [id number]
[2018-08-24] MEDS: Multivitamin Tab PO SCH (08:39)
--- NOTE | 2018-08-24 09:13 | General Progress Note ---
Subjective - Review of Systems Service Date: 08/24/18 Subjective: Patient is confused, calm, in no acute distress. Objective - Results Recent Labs: Laboratory Last Values Urine Source MIDSTREAM 08/05/18 11:30 Urine Color LT YELLOW 08/05/18 11:30 Urine Clarity CLEAR (CLEAR) 08/05/18 11:30 Urine pH 7.0 (4.6 - 8.0) 08/05/18 11:30 Ur Specific [place] <= 1.005 (1.005-1.030) 08/05/18 11:30 Urine Protein NEGATIVE mg/dL (NEGATIVE) 08/05/18 11:30 Urine Glucose (UA) NEGATIVE mg/dL (NEGATIVE) 08/05/18 11:30 Urine Ketones NEGATIVE mg/dL (NEGATIVE) 08/05/18 11:30 Urine Blood TRACE (NEGATIVE) 08/05/18 11:30 Urine Nitrate NEGATIVE (NEGATIVE) 08/05/18 11:30 Urine Bilirubin NEGATIVE (NEGATIVE) 08/05/18 11:30 Urine Urobilinogen 0.2 E.U./dL (0.2 - 1.0) 08/05/18 11:30 Ur Leukocyte Esterase NEGATIVE (NEGATIVE) 08/05/18 11:30 Urine RBC 0-2 /hpf (0-5) H 08/05/18 11:30 Urine WBC 0-2 /hpf (0-5) 08/05/18 11:30 Ur Epithelial Cells RARE /lpf (FEW) 08/05/18 11:30 Urine Bacteria FEW /hpf (NONE SEEN) 08/05/18 11:30 - Physical Exam Vitals and I&O: Vital Signs Temp 98.6 F 08/24/18 06:19 Pulse 55 08/24/18 06:19 Resp 20 08/24/18 06:19 BP 128/75 08/24/18 06:19 Pulse Ox 98 08/24/18 06:19 Intake & Output 08/23/18 08/24/18 08/24/18 18:59 06:59 18:59 Intake Total 2400 480 Balance 2400 480 Intake: Oral 2400 480 Other: # Voids 5 3 # Bowel Movements 1 0 Active Medications: Current Medications Acetaminophen (Tylenol) 650 mg PO Q4HR PRN PRN Reason: Mild Pain / Temp above 100 Stop: 10/04/18 11:53 Last Admin: 08/22/18 20:19 Dose: 650 mg Al Hydrox/Mg Hydrox/Simethicone (Maalox) 30 ml PO Q4HR PRN PRN Reason: GI DISTRESS Stop: 10/04/18 11:53 Lorazepam (Ativan) 0.5 mg PO Q4HR PRN; Protocol PRN Reason: Agitation Stop: 10/04/18 11:59 Last Admin: 08/11/18 20:26 Dose: 0.5 mg Magnesium Hydroxide (Milk Of Magnesia) 30 ml PO HS PRN PRN Reason: Constipation Multivitamins/Vitamin C (Theragran) 1 tab PO DAILY LACHO Stop: 10/05/18 08:59 Last Admin: 08/24/18 08:39 Dose: 1 tab Oxcarbazepine (Trileptal) 300 mg PO BID [facility]; Protocol Stop: 10/18/18 16:59 Last Admin: 08/24/18 08:39 Dose: 300 mg Risperidone (Risperdal) 2 mg PO BID [facility]; Protocol Stop: 10/16/18 16:59 Last Admin: 08/24/18 08:39 Dose: 2 mg Zolpidem Tartrate (Ambien) 5 mg PO HS PRN PRN Reason: Insomnia Stop: 10/04/18 11:53 Last Admin: 08/22/18 20:28 Dose: 5 mg General: Alert, Other (Confused) HEENT: Atraumatic Neck: Supple Cardiovascular: Regular rate Lungs: Clear to auscultation Abdomen: Bowel sounds Extremities: Other (No edema) Neurological: Normal gait Skin: Other (Warm and dry) Psych/Mental Status: Other (Confused) Assessment/Plan - Assessment Assessment: Patient is awake, alert, calm, in no acute distress. patient continue refusing laboratory work. Dx: Increased in agitation, Asthma/COPD, Polyarthritis. - Plan Plan: Patient is follow by psychiatry, he is continue with SNF meds. Nutritional Asmnt/Malnutr-PDOC - Dietary Evaluation Malnutrition Findings (Please click <Entered> for more info): Nutritional Asmnt/Malnutrition Start: 08/09/18 14: 55 Text: Status: Complete Freq: Protocol: Document 08/09/18 14:55 RUDY (Rec: 08/09/18 15:00 RUDY [email or web address]) Nutritional Asmnt/Malnutrition Patient General Information Nutritional Screening Moderate Risk Diagnosis psychosis Pertinent Medical Hx/Surgical Hx CAD, asthma, COPD, schipzohrenia, bipolar, right heel ulcer Subjective Information Per EMR, PO intake 100%. Current Diet Order/ Nutrition Support regular Pertinent Medications theragran Pertinent Labs no labs Nutritional Hx/Data Height 1.83 m Height (Calculated Centimeters) 182.9 Current Weight (lbs) 127.006 kg Weight (Calculated Kilograms) 127.0 Weight (Calculated Grams) 622091.9 [place] Body Weight 178 Body Mass Index (BMI) 38.0 Weight Status Obese GI Symptoms GI Symptoms None Last BM 08/08 Difficult in: None Skin Integrity/Comment: laceration to right foot Current %PO Good (75-100%) Estimated Nutritional Goals BEE in Kcals: Adj wt of IBW Calories/Kcals/Kg 23-27 Kcals Calculated 5507-4685 Protein: Adj wt of IBW Protein g/k.8 Protein Calculated 73 Fluid: ml 2116-2457ml (1ml/kcal) Nutritional Problem No current Nutrition Prob Problem N/A Malnutrition Alert Is there a minimum of two criteria No selected? Query Text:Check all the applicable criteria. A minimum of two criteria are recommended for diagnosis of either severe or non-severe malnutrition. Malnutrition Related to Morbid Obesity Malnutrition related to morbid obesity No Intervention/Recommendation Comments 1. Continue with regular diet as ordered. 2. Monitor PO intake, wt, labs and skin integrity 3. F/U as low risk in 7days Expected Outcomes/Goals Expected Outcomes/Goals 1. PO intake to meet at least 75% of nutritional needs. 2. Wt stability, skin to remain intact, labs to approach WNL.
--- NOTE | 2018-08-24 12:51 | Progress Notes ---
DATE: 08/24/2018 SUBJECTIVE: Staff was spoken to. The patient is interviewed. Mood is noted to be irritable. Affect is constricted. Insight and judgment are noted to be improving. Impulse control is noted to be fair. manager semiconductor has been spoken to. They have been trying to work with the conservator and so far no placement has been available. ASSESSMENT: The patient is stabilizing and awaiting placement. PLAN: To continue the patient with the supportive therapy and follow. JOB# [id number]
[2018-08-25] MEDS: Multivitamin Tab PO SCH (08:07)
--- NOTE | 2018-08-25 09:15 | General Progress Note ---
Subjective - Review of Systems Service Date: 08/25/18 Subjective: Patient is confused, calm, in no acute distress. Objective - Results Recent Labs: Laboratory Last Values Urine Source MIDSTREAM 08/05/18 11:30 Urine Color LT YELLOW 08/05/18 11:30 Urine Clarity CLEAR (CLEAR) 08/05/18 11:30 Urine pH 7.0 (4.6 - 8.0) 08/05/18 11:30 Ur Specific [place] <= 1.005 (1.005-1.030) 08/05/18 11:30 Urine Protein NEGATIVE mg/dL (NEGATIVE) 08/05/18 11:30 Urine Glucose (UA) NEGATIVE mg/dL (NEGATIVE) 08/05/18 11:30 Urine Ketones NEGATIVE mg/dL (NEGATIVE) 08/05/18 11:30 Urine Blood TRACE (NEGATIVE) 08/05/18 11:30 Urine Nitrate NEGATIVE (NEGATIVE) 08/05/18 11:30 Urine Bilirubin NEGATIVE (NEGATIVE) 08/05/18 11:30 Urine Urobilinogen 0.2 E.U./dL (0.2 - 1.0) 08/05/18 11:30 Ur Leukocyte Esterase NEGATIVE (NEGATIVE) 08/05/18 11:30 Urine RBC 0-2 /hpf (0-5) H 08/05/18 11:30 Urine WBC 0-2 /hpf (0-5) 08/05/18 11:30 Ur Epithelial Cells RARE /lpf (FEW) 08/05/18 11:30 Urine Bacteria FEW /hpf (NONE SEEN) 08/05/18 11:30 - Physical Exam Vitals and I&O: Vital Signs Temp 97 F 08/25/18 06:09 Pulse 60 08/25/18 06:09 Resp 20 08/25/18 06:09 BP 117/66 08/25/18 06:09 Pulse Ox 97 08/25/18 06:09 Intake & Output 08/24/18 08/25/18 08/25/18 18:59 06:59 18:59 Intake Total 1100 120 Balance 1100 120 Intake: Oral 1100 120 Other: # Voids 3 3 # Bowel Movements 1 Active Medications: Current Medications Acetaminophen (Tylenol) 650 mg PO Q4HR PRN PRN Reason: Mild Pain / Temp above 100 Stop: 10/04/18 11:53 Last Admin: 08/22/18 20:19 Dose: 650 mg Al Hydrox/Mg Hydrox/Simethicone (Maalox) 30 ml PO Q4HR PRN PRN Reason: GI DISTRESS Stop: 10/04/18 11:53 Lorazepam (Ativan) 0.5 mg PO Q4HR PRN; Protocol PRN Reason: Agitation Stop: 10/04/18 11:59 Last Admin: 08/11/18 20:26 Dose: 0.5 mg Magnesium Hydroxide (Milk Of Magnesia) 30 ml PO HS PRN PRN Reason: Constipation Multivitamins/Vitamin C (Theragran) 1 tab PO DAILY LACHO Stop: 10/05/18 08:59 Last Admin: 08/25/18 08:07 Dose: 1 tab Oxcarbazepine (Trileptal) 300 mg PO BID [facility]; Protocol Stop: 10/18/18 16:59 Last Admin: 08/25/18 08:06 Dose: 300 mg Risperidone (Risperdal) 2 mg PO BID [facility]; Protocol Stop: 10/16/18 16:59 Last Admin: 08/25/18 08:06 Dose: 2 mg Zolpidem Tartrate (Ambien) 5 mg PO HS PRN PRN Reason: Insomnia Stop: 10/04/18 11:53 Last Admin: 08/22/18 20:28 Dose: 5 mg General: Alert, Other (Confused) HEENT: Atraumatic Neck: Supple Cardiovascular: Regular rate Lungs: Clear to auscultation Abdomen: Bowel sounds Extremities: Other (No edema) Neurological: Normal gait Skin: Other (Warm and dry) Psych/Mental Status: Other (Confused) Assessment/Plan - Assessment Assessment: Patient is awake, alert, calm, in no acute distress. patient continue refusing laboratory work. Dx: Increased in agitation, Asthma/COPD, Polyarthritis. - Plan Plan: Patient is follow by psychiatry, he is continue with SNF meds. Nutritional Asmnt/Malnutr-PDOC - Dietary Evaluation Malnutrition Findings (Please click <Entered> for more info): Nutritional Asmnt/Malnutrition Start: 08/09/18 14: 55 Text: Status: Complete Freq: Protocol: Document 08/09/18 14:55 LCLEVARG (Rec: 08/09/18 15:00 RUDY [email or web address]) Nutritional Asmnt/Malnutrition Patient General Information Nutritional Screening Moderate Risk Diagnosis psychosis Pertinent Medical Hx/Surgical Hx CAD, asthma, COPD, schipzohrenia, bipolar, right heel ulcer Subjective Information Per EMR, PO intake 100%. Current Diet Order/ Nutrition Support regular Pertinent Medications theragran Pertinent Labs no labs Nutritional Hx/Data Height 1.83 m Height (Calculated Centimeters) 182.9 Current Weight (lbs) 127.006 kg Weight (Calculated Kilograms) 127.0 Weight (Calculated Grams) 264465.9 [place] Body Weight 178 Body Mass Index (BMI) 38.0 Weight Status Obese GI Symptoms GI Symptoms None Last BM 08/08 Difficult in: None Skin Integrity/Comment: laceration to right foot Current %PO Good (75-100%) Estimated Nutritional Goals BEE in Kcals: Adj wt of IBW Calories/Kcals/Kg 23-27 Kcals Calculated 1751-5962 Protein: Adj wt of IBW Protein g/k.8 Protein Calculated 73 Fluid: ml 2116-2457ml (1ml/kcal) Nutritional Problem No current Nutrition Prob Problem N/A Malnutrition Alert Is there a minimum of two criteria No selected? Query Text:Check all the applicable criteria. A minimum of two criteria are recommended for diagnosis of either severe or non-severe malnutrition. Malnutrition Related to Morbid Obesity Malnutrition related to morbid obesity No Intervention/Recommendation Comments 1. Continue with regular diet as ordered. 2. Monitor PO intake, wt, labs and skin integrity 3. F/U as low risk in 7days Expected Outcomes/Goals Expected Outcomes/Goals 1. PO intake to meet at least 75% of nutritional needs. 2. Wt stability, skin to remain intact, labs to approach WNL.
--- NOTE | 2018-08-26 00:18 | Progress Notes ---
DATE: 08/25/2018 PSYCHIATRIC PROGRESS NOTE SUBJECTIVE: Staff was spoken to. The patient is interviewed. Mood is noted to be irritable. Affect is constricted. Insight and judgment at this time are noted to be still improving. Impulse control seems to be fair. Coping skills are noted to be fair. The patient has been able to participate in the groups and verbalize the concerns. ASSESSMENT: The patient is stabilizing. PLAN: To discharge the patient today for followup on an outpatient basis. JOB# [id number]
== END 2018-08-25 14:25 | DRG 885 ==
LOC: ER 10:41 → GERO2 11:25 → GERO 12:38
PROVIDERS: ADMIT Psychiatry & Neurology Psychiatry; ATTEND Psychiatry & Neurology Psychiatry
DX: F20.0 Paranoid schizophrenia (principal); J44.9 Chronic obstructive pulmonary disease, unspecified; M13.0 Polyarthritis, unspecified; F31.9 Bipolar disorder, unspecified; I25.10 Atherosclerotic heart disease of native coronary artery without angina pectoris; Z88.8 Allergy status to other drugs, medicaments and biological substances
CPT/HCPCS: 81001-TC; 83036-90; 90899; 93005; 97535; G0410; Z7610

== ENCOUNTER 2019-01-11 18:50 | Inpatient (IN) | payer MEDICARE, OTHER ==
--- NOTE | 2019-01-11 19:16 | ED Physician Chart ---
ED Chief Complaint/HPI - Patient Information Date Seen:: 01/11/19 Time Seen:: 19:16 Chief Complaint:: Increased agitation History of Present Illness:: 53 yo male with history of schizophrenia, bipolar disorder, CAD and asthma, was brought from SNF to ER for evaluation of increased agitation. Allergies:: Allergies Allergy/AdvReac Type Severity Reaction Status Date / Time clonazepam Allergy Verified 01/11/19 19:06 Vitals:: Vital Signs - 8 hr 01/11/19 19:01 Temp 97.3 F HR 76 RR 18 BP 122/77 O2 Sat % 96 ED Review of Systems - Review of Systems General/Constitutional: No fever, No chills Skin: No rash Head: No headache Eyes: No pain ENT: No earache Neck: No neck pain Cardio Vascular: No chest pain Pulmonary: No SOB GI: No nausea, No vomiting Musculoskeletal: No bone or joint pain Psychiatric: Prior psych history Neurological: No focal symptoms ED Past Medical History - Past Medical History Past Medical History: CAD, Asthma/COPD Social History: Smoker, No Alcohol, No Drug Use Psychiatricy History: Schizophrenia, Bipolar Family Medical History - Family Member Mother History Unknown: Yes Ethnicity: Non- Living Status: Hx Family Cancer: No Hx Family Coronary Artery Disease: No Hx Family Congestive Heart Failure: No Hx Family Hypertension: No Hx Family Stroke: No Hx Family Diabetes: No Hx Family Seizures: No Hx Family Dementia: No Hx Family AIDS: No Hx Family HIV: No Hx Family COPD: No Hx Family Hepatitis: No Hx Family Psychiatric Problems: No Hx Family Tuberculosis: No Father History Unknown: Yes ED Physical Exam - Physical Examination General/Constitutional: Awake, Alert Head: Atraumatic Eyes: PERRL, EOMI Skin: No ecchymosis ENMT: Nasal exam nl Neck: No nuchal rigidity Respiratory: No Wheeze/Rhonchi/Rales Cardio Vascular: RRR, No murmur, gallop, rubs, NL S1 S2 GI: No tenderness/rebounding/guarding Extremities: normal strength in all extremities Neuro/Psych: No focal deficits ED Labs/Radiology/EKG Results - Lab Results Results: Laboratory Last Values WBC 8.3 Th/cmm (4.8-10.8) 01/11/19 19:45 RBC 4.26 Mil/cmm (4.30-5.70) L 01/11/19 19:45 Hgb 12.8 gm/dL (12-16) 01/11/19 19:45 Hct 38.9 % (41.0-60) L 01/11/19 19:45 MCV 91.3 fl (80-99) 01/11/19 19:45 MCH 30.0 pg (26.0-30.0) 01/11/19 19:45 MCHC Differential 32.8 pg (28.0-36.0) 01/11/19 19:45 RDW 12.0 % (11.5-20.0) 01/11/19 19:45 Plt Count 318 Th/cmm (150-400) 01/11/19 19:45 MPV 6.6 fl 01/11/19 19:45 Neutrophils % 69.0 % (40.0-80.0) 01/11/19 19:45 Lymphocytes % 24.3 % (20.0-50.0) 01/11/19 19:45 Monocytes % 4.7 % (2.0-10.0) 01/11/19 19:45 Eosinophils % 2.0 % (0.0-5.0) 01/11/19 19:45 Basophils % 0.0 % (0.0-2.0) 01/11/19 19:45 Sodium 134 mEq/L (136-145) L 01/11/19 19:45 Potassium 3.5 mEq/L (3.5-5.1) 01/11/19 19:45 Chloride 98 mEq/L (98-107) 01/11/19 19:45 Carbon Dioxide 27.4 mEq/L (21.0-31.0) 01/11/19 19:45 Anion Gap 12.1 (7.0-16.0) 01/11/19 19:45 BUN 9 mg/dL (7-25) 01/11/19 19:45 Creatinine 0.8 mg/dL (0.7-1.3) 01/11/19 19:45 Est GFR ( Amer) > 60.0 ml/min (>90) 01/11/19 19:45 Est GFR (Non-Af Amer) > 60.0 ml/min 01/11/19 19:45 BUN/Creatinine Ratio 11.3 01/11/19 19:45 Glucose 106 mg/dL (70-105) H 01/11/19 19:45 Calcium 9.3 mg/dL (8.6-10.3) 01/11/19 19:45 Total Bilirubin 0.4 mg/dL (0.3-1.0) 01/11/19 19:45 AST 14 U/L (13-39) 01/11/19 19:45 ALT 11 U/L (7-52) 01/11/19 19:45 Alkaline Phosphatase 98 U/L (34-104) 01/11/19 19:45 Troponin I < 0.01 ng/mL (0.01-0.05) L 01/11/19 19:45 B-Natriuretic Peptide < 5.0 pg/mL (5.0-100.0) L 01/11/19 19:45 Total Protein 7.2 gm/dL (6.0-8.3) 01/11/19 19:45 Albumin 4.6 gm/dL (4.2-5.5) 01/11/19 19:45 Globulin 2.6 gm/dL 01/11/19 19:45 Albumin/Globulin Ratio 1.8 (1.0-1.8) 01/11/19 19:45 Triglycerides 88 mg/dL (<150) 01/11/19 19:45 Cholesterol 125 mg/dL (<200) 01/11/19 19:45 LDL Cholesterol Direct 74 mg/dL (75-193) L 01/11/19 19:45 HDL Cholesterol 47 mg/dL (23-92) 01/11/19 19:45 TSH 1.81 uIU/ml (0.34-5.60) 01/11/19 19:45 Urine Source MIDSTREAM 01/11/19 19:18 Urine Color YELLOW 01/11/19 19:18 Urine Clarity CLEAR (CLEAR) 01/11/19 19:18 Urine pH 6.0 (4.6 - 8.0) 01/11/19 19:18 Ur Specific [place] <= 1.005 (1.005-1.030) 01/11/19 19:18 Urine Protein NEGATIVE mg/dL (NEGATIVE) 01/11/19 19:18 Urine Glucose (UA) NEGATIVE mg/dL (NEGATIVE) 01/11/19 19:18 Urine Ketones NEGATIVE mg/dL (NEGATIVE) 01/11/19 19:18 Urine Blood TRACE (NEGATIVE) 01/11/19 19:18 Urine Nitrate NEGATIVE (NEGATIVE) 01/11/19 19:18 Urine Bilirubin NEGATIVE (NEGATIVE) 01/11/19 19:18 Urine Urobilinogen 0.2 E.U./dL (0.2 - 1.0) 01/11/19 19:18 Ur Leukocyte Esterase NEGATIVE (NEGATIVE) 01/11/19 19:18 Urine RBC 2-5 /hpf (0-5) H 01/11/19 19:18 Urine WBC 0-2 /hpf (0-5) 01/11/19 19:18 Ur Epithelial Cells NONE SEEN /lpf (FEW) 01/11/19 19:18 Urine Bacteria FEW /hpf (NONE SEEN) 01/11/19 19:18 Urine Mucus NONE SEEN /lpf (FEW) 01/11/19 19:18 - Radiology Results Results: CXR: no focal consolidation ED Assessment - Assessment General Assessment: Hyponatremia Schizophrenia Bipolar disorder Psychosis Assessment/Comments:: CBC, CMP, BNP, Trop, UA CXR, EKG Admit to [facility] for further evaluation and management ED Septic Shock - . Is Septic Shock (SBP<90, OR Lactate>4 mmol\L) present?: No - <6hrs of presentation: Vital Signs: Vital Signs - 8 hr 01/11/19 19:01 Temp 97.3 F HR 76 RR 18 BP 122/77 O2 Sat % 96 ED Reassessment (Disposition) - Reassessment Reassessment Condition:: Unchanged - Patient Disposition Discharge/Transfer:: [facility] w/in this hosp Admitting Medical Physician:: Jr Bhakta Admitting Psych Physician:: Matt Kellogg
[2019-01-11 19:51] LABS: % LYMPHOCYTES 24.3 % (20.0-50.0); % MONOCYTES 4.7 % (2.0-10.0); EOSINOPHILE ABSOLUTE 0.2 Th/cmm (0.1-0.4); HEMATOCRIT 38.9 % (41.0-60); HEMOGLOBIN 12.8 gm/dL (12-16); MEAN CELL VOLUME 91.3 fl (80-99); MEAN CORPUSCULAR HGB CONC 32.8 pg (28.0-36.0); MEAN PLATELET VOLUME 6.6 fl; MONOCYTE ABSOLUTE 0.4 Th/cmm (0.3-1.0); NEUTROPHILE ABSOLUTE 5.7 Th/cmm (1.8-8.0); PLATELET COUNT 318 Th/cmm (150-400); RED BLOOD COUNT 4.26 Mil/cmm (4.30-5.70); WHITE BLOOD COUNT 8.3 Th/cmm (4.8-10.8)
[2019-01-11 19:53] LABS: URINE BILIRUBIN NEGATIVE (NEGATIVE); URINE BLOOD TRACE (NEGATIVE); URINE GLUCOSE (UA) NEGATIVE (NEGATIVE); URINE KETONE NEGATIVE (NEGATIVE); URINE LEUKOCYTE ESTERASE NEGATIVE (NEGATIVE); URINE MICROSCOPIC INDICATED? YES; URINE NITRATE NEGATIVE (NEGATIVE); URINE PROTEIN NEGATIVE (NEGATIVE); URINE SOURCE MIDSTREAM; URINE UROBILINOGEN 0.2 E.U./dL (0.2 - 1.0)
[2019-01-11 20:00] LABS: URINE CLARITY CLEAR (CLEAR); URINE COLOR YELLOW
[2019-01-11 20:06] LABS: ALB/GLOB RATIO 1.8 (1.0-1.8); ALBUMIN 4.6 gm/dL (4.2-5.5); ALKALINE PHOSPHATASE 98 U/L (34-104); ANION GAP 12.1 (7.0-16.0); BILIRUBIN,TOTAL 0.4 mg/dL (0.3-1.0); BUN - UREA NITROGEN 9 mg/dL (7-25); CALCIUM SERUM 9.3 mg/dL (8.6-10.3); CARBON DIOXIDE 27.4 mEq/L (21.0-31.0); CHLORIDE 98 mEq/L (98-107); CREATININE - SERUM 0.8 mg/dL (0.7-1.3); GFR AFRICAN-AMERICAN > 60.0 ml/min (>90); GFR NON AFRICAN-AMERICAN > 60.0 ml/min; GLUCOSE 106 mg/dL (70-105); POTASSIUM SERUM 3.5 mEq/L (3.5-5.1); SGOT 14 U/L (13-39); SGPT/ALT 11 U/L (7-52); SODIUM SERUM 134 mEq/L (136-145); TOTAL PROTEIN,SERUM 7.2 gm/dL (6.0-8.3)
[2019-01-11 20:06] LABS: URINE WBC 0-2 /hpf (0-5)
[2019-01-11 20:07] LABS: URINE BACTERIA FEW /hpf (NONE SEEN); URINE EPITHELIAL CELLS NONE SEEN /lpf (FEW)
[2019-01-11] MEDS ORDERED: Magnesium Hydroxide (MOM) 30 mL UDC PO PRN (21:22)
[2019-01-11] MEDS ORDERED: Maalox 30 mL Cup PO PRN (21:22)
--- NOTE | 2019-01-11 22:19 | History & Physical ---
ADMIT DATE: 01/11/2019 HISTORY OF PRESENT ILLNESS: The patient is a 53-year-old male with long history of COPD, atherosclerotic heart disease, schizophrenia, [facility] Dr. Kellogg's service. The patient denies any chest pain, shortness of breath, nausea, vomiting, fever or chills. PAST MEDICAL HISTORY: Significant for COPD, atherosclerotic heart disease, chronic anxiety disorder, insomnia and schizophrenia. PAST SURGICAL HISTORY: No recent surgery. ALLERGIES: CLONAZEPAM. SOCIAL HISTORY: Chronic smoker. No alcohol, no drug. MEDICATIONS: Follow admission reconciliation. REVIEW OF SYSTEMS: RENAL SYSTEM: No history of chronic renal disorder. CARDIOVASCULAR SYSTEM: No coronary artery disease. ENDOCRINE SYSTEM: No diabetes or thyroid problem. GASTROINTESTINAL SYSTEM: No upper or lower gastrointestinal bleed. NEUROLOGICAL SYSTEM: No seizure disorder. MUSCULOSKELETAL SYSTEM: No muscular dystrophy. HEMATOLOGICAL SYSTEM: No bleeding tendency. RESPIRATORY SYSTEM: History of chronic obstructive pulmonary disease. GENITOURINARY: No dysuria, hematuria. PHYSICAL EXAMINATION: GENERAL: He is awake, alert, mildly confused. VITAL SIGNS: Temperature 97.3, heart rate 76, blood pressure 122/77. HEENT: Normocephalic. Pupils reactive to light and accommodation. Sclerae clear. NECK: Supple. Negative for lymphadenopathy, JVD or bruit. CHEST: Entry of air bilaterally mildly diminished. No wheezing. HEART: S1, S2. No murmur or gallop rhythm. ABDOMEN: Soft, bowel sounds positive. EXTREMITIES: No edema. NEUROLOGIC: He is awake, alert, mildly confused. No focal motor or sensory deficit. Cranial nerves 2-12 are intact. LABORATORY DATA: White blood cell 8.3, hemoglobin 12.8, hematocrit 28.9, platelets 318. Sodium 134, potassium 3.5, BUN 9, creatinine 0.8, glucose 106, troponin less than 0.01. BNP less than 5. ASSESSMENT: 1. Chronic obstructive pulmonary disease. 2. Chronic constipation. 3. Dementia. 4. Psychosis. PLAN: The patient admitted to the hospital under Dr. Kellogg's service. Medical problem addressed during hospitalization is psychosis. Medical problems addressed at discharge are chronic constipation and cessation of smoking. The patient is medically stable for activity. The patient is a full code. Thank you Dr. Kellogg for asking me to see your patient. JOB# [id number]
[2019-01-12 03:39] VITALS: BP 128/70
[2019-01-12 05:59] LABS: CHOLESTEROL 125 mg/dL (<200); HDL -HIGH DENSITY LIPOPROTEIN 47 mg/dL (23-92); TRIGLYCERIDES 88 mg/dL (<150)
[2019-01-12] MEDS: Multivitamin w/ Minerals Tab PO SCH (08:33)
[2019-01-12] MEDS ORDERED: Multivitamin Tab PO SCH (09:00)
--- NOTE | 2019-01-12 09:46 | Diagnostic Imaging Report ---
Portable chest x-ray HISTORY: Shortness of breath The heart size is difficult to assess with portable technique in a poor inspiration. No acute focal prominent processes. No hilar or mediastinal abnormalities. IMPRESSION: No acute pulmonary processes
--- NOTE | 2019-01-12 19:19 | Internal Medicine Prog Note ---
Internal Medicine Subjective - Subjective Service Date: 01/12/19 Patient seen and examined:: with staff Patient is:: awake, verbal, in bed, talking Per staff patient has:: no adverse event Internal Medicine Objective - Results Result Diagrams: 01/11/19 19:45 01/11/19 19:45 Recent Labs: Laboratory Last Values WBC 8.3 Th/cmm (4.8-10.8) 01/11/19 19:45 RBC 4.26 Mil/cmm (4.30-5.70) L 01/11/19 19:45 Hgb 12.8 gm/dL (12-16) 01/11/19 19:45 Hct 38.9 % (41.0-60) L 01/11/19 19:45 MCV 91.3 fl (80-99) 01/11/19 19:45 MCH 30.0 pg (26.0-30.0) 01/11/19 19:45 MCHC Differential 32.8 pg (28.0-36.0) 01/11/19 19:45 RDW 12.0 % (11.5-20.0) 01/11/19 19:45 Plt Count 318 Th/cmm (150-400) 01/11/19 19:45 MPV 6.6 fl 01/11/19 19:45 Neutrophils % 69.0 % (40.0-80.0) 01/11/19 19:45 Lymphocytes % 24.3 % (20.0-50.0) 01/11/19 19:45 Monocytes % 4.7 % (2.0-10.0) 01/11/19 19:45 Eosinophils % 2.0 % (0.0-5.0) 01/11/19 19:45 Basophils % 0.0 % (0.0-2.0) 01/11/19 19:45 Sodium 134 mEq/L (136-145) L 01/11/19 19:45 Potassium 3.5 mEq/L (3.5-5.1) 01/11/19 19:45 Chloride 98 mEq/L (98-107) 01/11/19 19:45 Carbon Dioxide 27.4 mEq/L (21.0-31.0) 01/11/19 19:45 Anion Gap 12.1 (7.0-16.0) 01/11/19 19:45 BUN 9 mg/dL (7-25) 01/11/19 19:45 Creatinine 0.8 mg/dL (0.7-1.3) 01/11/19 19:45 Est GFR ( Amer) > 60.0 ml/min (>90) 01/11/19 19:45 Est GFR (Non-Af Amer) > 60.0 ml/min 01/11/19 19:45 BUN/Creatinine Ratio 11.3 01/11/19 19:45 Glucose 106 mg/dL (70-105) H 01/11/19 19:45 Calcium 9.3 mg/dL (8.6-10.3) 01/11/19 19:45 Total Bilirubin 0.4 mg/dL (0.3-1.0) 01/11/19 19:45 AST 14 U/L (13-39) 01/11/19 19:45 ALT 11 U/L (7-52) 01/11/19 19:45 Alkaline Phosphatase 98 U/L (34-104) 01/11/19 19:45 Troponin I < 0.01 ng/mL (0.01-0.05) L 01/11/19 19:45 B-Natriuretic Peptide < 5.0 pg/mL (5.0-100.0) L 01/11/19 19:45 Total Protein 7.2 gm/dL (6.0-8.3) 01/11/19 19:45 Albumin 4.6 gm/dL (4.2-5.5) 01/11/19 19:45 Globulin 2.6 gm/dL 01/11/19 19:45 Albumin/Globulin Ratio 1.8 (1.0-1.8) 01/11/19 19:45 Triglycerides 88 mg/dL (<150) 01/11/19 19:45 Cholesterol 125 mg/dL (<200) 01/11/19 19:45 LDL Cholesterol Direct 74 mg/dL (75-193) L 01/11/19 19:45 HDL Cholesterol 47 mg/dL (23-92) 01/11/19 19:45 TSH 1.81 uIU/ml (0.34-5.60) 01/11/19 19:45 Urine Source MIDSTREAM 01/11/19 19:18 Urine Color YELLOW 01/11/19 19:18 Urine Clarity CLEAR (CLEAR) 01/11/19 19:18 Urine pH 6.0 (4.6 - 8.0) 01/11/19 19:18 Ur Specific [place] <= 1.005 (1.005-1.030) 01/11/19 19:18 Urine Protein NEGATIVE mg/dL (NEGATIVE) 01/11/19 19:18 Urine Glucose (UA) NEGATIVE mg/dL (NEGATIVE) 01/11/19 19:18 Urine Ketones NEGATIVE mg/dL (NEGATIVE) 01/11/19 19:18 Urine Blood TRACE (NEGATIVE) 01/11/19 19:18 Urine Nitrate NEGATIVE (NEGATIVE) 01/11/19 19:18 Urine Bilirubin NEGATIVE (NEGATIVE) 01/11/19 19:18 Urine Urobilinogen 0.2 E.U./dL (0.2 - 1.0) 01/11/19 19:18 Ur Leukocyte Esterase NEGATIVE (NEGATIVE) 01/11/19 19:18 Urine RBC 2-5 /hpf (0-5) H 01/11/19 19:18 Urine WBC 0-2 /hpf (0-5) 01/11/19 19:18 Ur Epithelial Cells NONE SEEN /lpf (FEW) 01/11/19 19:18 Urine Bacteria FEW /hpf (NONE SEEN) 01/11/19 19:18 Urine Mucus NONE SEEN /lpf (FEW) 01/11/19 19:18 - Physical Exam Vitals and I&O: Vital Signs Temp 98.1 F 01/12/19 14:00 Pulse 82 01/12/19 14:00 Resp 20 01/12/19 14:00 BP 122/79 01/12/19 14:00 Pulse Ox 99 01/12/19 14:00 Intake & Output 01/12/19 01/12/19 01/13/19 06:59 18:59 06:59 Intake Total 240 1550 Balance 240 1550 Weight (lbs) 127.006 kg Intake: Oral 240 1550 Other: # Voids 2 3 # Bowel Movements 1 Weight Source Patient stated Active Medications: Current Medications Acetaminophen (Tylenol) 650 mg PO Q4HR PRN PRN Reason: Mild Pain / Temp above 100 Stop: 03/12/19 21:21 Al Hydrox/Mg Hydrox/Simethicone (Maalox) 30 ml PO Q4H PRN PRN Reason: GI DISTRESS Stop: 03/12/19 21:21 Ascorbic Acid (Vitamin C) 500 mg PO DAILY [facility] Stop: 03/13/19 08:59 Last Admin: 01/12/19 08:33 Dose: 500 mg Docusate Sodium (Colace) 250 mg PO DAILY [facility] Stop: 03/13/19 08:59 Last Admin: 01/12/19 08:33 Dose: 250 mg Gemfibrozil (Lopid) 600 mg PO DAILY [facility] Stop: 03/13/19 08:59 Last Admin: 01/12/19 08:33 Dose: 600 mg Lorazepam (Ativan) 0.5 mg PO Q4H PRN; Protocol PRN Reason: Anxiety Stop: 03/13/19 03:38 Magnesium Hydroxide (Milk Of Magnesia) 30 ml PO HS PRN PRN Reason: Constipation Stop: 03/12/19 21:21 Oxcarbazepine (Trileptal) 300 mg PO BID [facility]; Protocol Stop: 03/13/19 13:59 Last Admin: 01/12/19 17:08 Dose: 300 mg Risperidone (Risperdal) 2 mg PO BID [facility]; Protocol Stop: 03/13/19 08:59 Last Admin: 01/12/19 17:08 Dose: 2 mg Zolpidem Tartrate (Ambien) 5 mg PO HS PRN PRN Reason: Insomnia Stop: 03/12/19 21:21 General: demented HEENT: NC/AT, PERRLA, EOMI, anicteric sclerae, throat clear Neck: Supple, No JVD, No thyromegaly, +2 carotid pulse wo bruit, No LAD, + JVD Lungs: CTAB Cardiovascular: RRR, Normal S1, Normal S2, without murmur Abdomen: soft, non-tender, non-distended Extremities: clear Neurological: no change Internal Medicine Assmt/Plan - Assessment Assessment: 1.COPD. 2.CHRONIC CONSTIPATION. 3.DEMENTIA. 4.PSYCHOSIS. - Plan Plan: CONTINUE ON CURRENT MDICATION AND DIET.
--- NOTE | 2019-01-13 01:29 | Psychiatric Evaluation ---
DATE OF SERVICE: PATIENT'S AGE: 53. SEX: Male. PHYSICIAN: Dr. Kellogg. CHIEF COMPLAINT: Agitation and physical and verbal aggression. HISTORY OF PRESENT ILLNESS: The patient is a 53-year-old male who lives in [facility]. The patient was admitted to the hospital because of increased agitation and increased irritability. The patient also has been verbally and physically aggressive with the staff there. He also was unable to follow staff directions. PAST PSYCHIATRIC HISTORY: The patient has history of schizophrenia. PAST MEDICAL HISTORY: The patient has COPD as well as arteriosclerotic heart disease. SOCIAL HISTORY: The patient lives in [facility] and no known alcohol or drug use. ALLERGIES: No known allergies. MENTAL STATUS EXAMINATION: The patient appears his stated age. Disheveled. Irritable mood. Thought processes are circumstantial and tangential with occasional flight of ideas. The patient denies auditory or visual hallucination, but is paranoid and delusional and seems to be preoccupied and responding. The patient denies suicidal or homicidal ideations. The patient is alert and oriented to time, place, person, and situation. Intact immediate, recent and remote memories. Poor insight and poor judgment. ASSESSMENT: Schizophrenia disorder. TREATMENT PLAN: Monitor the patient's behavior and condition closely. The patient is taking Risperdal and will adjust the dose. Also, we will work on behavioral modification. ESTIMATED LENGTH OF STAY: 5-7 days. THE PATIENT'S STRENGTHS AND WEAKNESSES: The patient's strength is not clear at this time. Weaknesses is poor impulse control and aggression. CRITERIA FOR DISCHARGE: The patient will not be psychotic or agitated and will stabilize psychotropic medications and will establish outpatient treatment plans. [facility]# [id number]
[2019-01-13] MEDS: Multivitamin w/ Minerals Tab PO SCH (10:28)
[2019-01-13] MEDS ORDERED: Venelex 60gm Tube TP SCH (15:30)
--- NOTE | 2019-01-13 17:44 | Internal Medicine Prog Note ---
Internal Medicine Subjective - Subjective Service Date: 01/13/19 Patient seen and examined:: with staff Patient is:: awake, verbal, in bed, talking Per staff patient has:: no adverse event Internal Medicine Objective - Results Result Diagrams: 01/11/19 19:45 01/11/19 19:45 Recent Labs: Laboratory Last Values WBC 8.3 Th/cmm (4.8-10.8) 01/11/19 19:45 RBC 4.26 Mil/cmm (4.30-5.70) L 01/11/19 19:45 Hgb 12.8 gm/dL (12-16) 01/11/19 19:45 Hct 38.9 % (41.0-60) L 01/11/19 19:45 MCV 91.3 fl (80-99) 01/11/19 19:45 MCH 30.0 pg (26.0-30.0) 01/11/19 19:45 MCHC Differential 32.8 pg (28.0-36.0) 01/11/19 19:45 RDW 12.0 % (11.5-20.0) 01/11/19 19:45 Plt Count 318 Th/cmm (150-400) 01/11/19 19:45 MPV 6.6 fl 01/11/19 19:45 Neutrophils % 69.0 % (40.0-80.0) 01/11/19 19:45 Lymphocytes % 24.3 % (20.0-50.0) 01/11/19 19:45 Monocytes % 4.7 % (2.0-10.0) 01/11/19 19:45 Eosinophils % 2.0 % (0.0-5.0) 01/11/19 19:45 Basophils % 0.0 % (0.0-2.0) 01/11/19 19:45 Sodium 134 mEq/L (136-145) L 01/11/19 19:45 Potassium 3.5 mEq/L (3.5-5.1) 01/11/19 19:45 Chloride 98 mEq/L (98-107) 01/11/19 19:45 Carbon Dioxide 27.4 mEq/L (21.0-31.0) 01/11/19 19:45 Anion Gap 12.1 (7.0-16.0) 01/11/19 19:45 BUN 9 mg/dL (7-25) 01/11/19 19:45 Creatinine 0.8 mg/dL (0.7-1.3) 01/11/19 19:45 Est GFR ( Amer) > 60.0 ml/min (>90) 01/11/19 19:45 Est GFR (Non-Af Amer) > 60.0 ml/min 01/11/19 19:45 BUN/Creatinine Ratio 11.3 01/11/19 19:45 Glucose 106 mg/dL (70-105) H 01/11/19 19:45 Calcium 9.3 mg/dL (8.6-10.3) 01/11/19 19:45 Total Bilirubin 0.4 mg/dL (0.3-1.0) 01/11/19 19:45 AST 14 U/L (13-39) 01/11/19 19:45 ALT 11 U/L (7-52) 01/11/19 19:45 Alkaline Phosphatase 98 U/L (34-104) 01/11/19 19:45 Troponin I < 0.01 ng/mL (0.01-0.05) L 01/11/19 19:45 B-Natriuretic Peptide < 5.0 pg/mL (5.0-100.0) L 01/11/19 19:45 Total Protein 7.2 gm/dL (6.0-8.3) 01/11/19 19:45 Albumin 4.6 gm/dL (4.2-5.5) 01/11/19 19:45 Globulin 2.6 gm/dL 01/11/19 19:45 Albumin/Globulin Ratio 1.8 (1.0-1.8) 01/11/19 19:45 Triglycerides 88 mg/dL (<150) 01/11/19 19:45 Cholesterol 125 mg/dL (<200) 01/11/19 19:45 LDL Cholesterol Direct 74 mg/dL (75-193) L 01/11/19 19:45 HDL Cholesterol 47 mg/dL (23-92) 01/11/19 19:45 TSH 1.81 uIU/ml (0.34-5.60) 01/11/19 19:45 Urine Source MIDSTREAM 01/11/19 19:18 Urine Color YELLOW 01/11/19 19:18 Urine Clarity CLEAR (CLEAR) 01/11/19 19:18 Urine pH 6.0 (4.6 - 8.0) 01/11/19 19:18 Ur Specific [place] <= 1.005 (1.005-1.030) 01/11/19 19:18 Urine Protein NEGATIVE mg/dL (NEGATIVE) 01/11/19 19:18 Urine Glucose (UA) NEGATIVE mg/dL (NEGATIVE) 01/11/19 19:18 Urine Ketones NEGATIVE mg/dL (NEGATIVE) 01/11/19 19:18 Urine Blood TRACE (NEGATIVE) 01/11/19 19:18 Urine Nitrate NEGATIVE (NEGATIVE) 01/11/19 19:18 Urine Bilirubin NEGATIVE (NEGATIVE) 01/11/19 19:18 Urine Urobilinogen 0.2 E.U./dL (0.2 - 1.0) 01/11/19 19:18 Ur Leukocyte Esterase NEGATIVE (NEGATIVE) 01/11/19 19:18 Urine RBC 2-5 /hpf (0-5) H 01/11/19 19:18 Urine WBC 0-2 /hpf (0-5) 01/11/19 19:18 Ur Epithelial Cells NONE SEEN /lpf (FEW) 01/11/19 19:18 Urine Bacteria FEW /hpf (NONE SEEN) 01/11/19 19:18 Urine Mucus NONE SEEN /lpf (FEW) 01/11/19 19:18 - Physical Exam Vitals and I&O: Vital Signs Temp 97.1 F 01/13/19 16:17 Pulse 63 01/13/19 16:17 Resp 19 01/13/19 16:17 BP 103/54 01/13/19 16:17 Pulse Ox 100 01/13/19 16:17 Intake & Output 01/12/19 01/13/19 01/13/19 18:59 06:59 18:59 Intake Total 1550 120 Balance 1550 120 Intake: Oral 1550 120 Other: # Voids 3 3 # Bowel Movements 1 0 Active Medications: Current Medications Acetaminophen (Tylenol) 650 mg PO Q4HR PRN PRN Reason: Mild Pain / Temp above 100 Stop: 03/12/19 21:21 Al Hydrox/Mg Hydrox/Simethicone (Maalox) 30 ml PO Q4H PRN PRN Reason: GI DISTRESS Stop: 03/12/19 21:21 Ascorbic Acid (Vitamin C) 500 mg PO DAILY [facility] Stop: 03/13/19 08:59 Last Admin: 01/13/19 10:28 Dose: 500 mg [place] Oil/American Balsam/Trypsin (Venelex) 1 appl TP DAILY [facility] Stop: 03/14/19 15:29 Docusate Sodium (Colace) 250 mg PO DAILY [facility] Stop: 03/13/19 08:59 Last Admin: 01/13/19 10:28 Dose: 250 mg Gemfibrozil (Lopid) 600 mg PO DAILY [facility] Stop: 03/13/19 08:59 Last Admin: 01/13/19 10:28 Dose: 600 mg Lorazepam (Ativan) 0.5 mg PO Q4H PRN; Protocol PRN Reason: Anxiety Stop: 03/13/19 03:38 Last Admin: 01/12/19 20:15 Dose: 0.5 mg Magnesium Hydroxide (Milk Of Magnesia) 30 ml PO HS PRN PRN Reason: Constipation Stop: 03/12/19 21:21 Oxcarbazepine (Trileptal) 300 mg PO BID [facility]; Protocol Stop: 03/13/19 13:59 Last Admin: 01/13/19 10:27 Dose: 300 mg Risperidone (Risperdal) 2 mg PO BID [facility]; Protocol Stop: 03/13/19 08:59 Last Admin: 01/13/19 10:28 Dose: 2 mg Zolpidem Tartrate (Ambien) 5 mg PO HS PRN PRN Reason: Insomnia Stop: 03/12/19 21:21 Last Admin: 01/12/19 20:16 Dose: 5 mg General: demented HEENT: NC/AT, PERRLA, EOMI, anicteric sclerae, throat clear Neck: Supple, No JVD, No thyromegaly, +2 carotid pulse wo bruit, No LAD, + JVD Lungs: CTAB Cardiovascular: RRR, Normal S1, Normal S2, without murmur Abdomen: soft, non-tender, non-distended Extremities: clear Neurological: no change Internal Medicine Assmt/Plan - Assessment Assessment: 1.COPD. 2.CHRONIC CONSTIPATION. 3.DEMENTIA. 4.PSYCHOSIS. - Plan Plan: CONTINUE ON CURRENT MDICATION AND DIET.
--- NOTE | 2019-01-13 21:33 | Progress Notes ---
DATE: 01/13/2019 DATE OF SERVICE: 01/13/2019 SUBJECTIVE: Chart reviewed and the patient interviewed. Also discussed the patient's condition with the staff and reviewed records and labs. The patient is still agitated. The patient also still needs lots of redirections, but able to follow directions. He also is fixed on "smoking." The patient is hyperverbal and is easily irritable and agitated. Otherwise, the patient continued to comply with the Risperdal with no side effects. ASSESSMENT: The patient is still psychotic and responding. TREATMENT PLAN: Continue monitoring his behavior and his condition closely. Also, continue adjusting psychotropic medications and work on his irritability and agitation. JOB# [id number]
[2019-01-14] MEDS: Multivitamin w/ Minerals Tab PO SCH (08:09)
--- NOTE | 2019-01-17 11:35 | Discharge Summary ---
DATE OF DISCHARGE: 01/14/2019 FINAL DIAGNOSES/PRIMARY DIAGNOSES: Bipolar disorder, manic episode, severe, with psychotic features. REASON FOR HOSPITALIZATION: The patient was admitted to the hospital because of increased agitation and irritability and difficulty following staff directions in [place] where he lives. HOSPITAL COURSE: The patient continued to be agitated and in irritable mood. The patient also was at times showing elated mood with disorganized thoughts. He also was restless at times. The patient was restarted on Risperdal and Trileptal. Gradually, the patient's affect was brighter and the patient was easier to redirect him and the patient was discharged from the hospital. Physical exam of the patient showed no major medical problems and the patient had no major medical issues while in the hospital. AFTER DISCHARGE PLANS: The patient returned to [facility] with plans to follow him there. EXPECTED OUTCOME AFTER DISCHARGE: Fair if the patient continued to take psychotropic medications and follow up with discharge plans. [facility]# [id number]
== END 2019-01-14 16:40 | DRG 885 ==
LOC: ER 18:50 → GERO2 20:15
PROVIDERS: ADMIT Psychiatry & Neurology Psychiatry; ATTEND Psychiatry & Neurology Psychiatry
DX: F31.2 Bipolar disorder, current episode manic severe with psychotic features (principal); E87.1 Hypo-osmolality and hyponatremia; I25.10 Atherosclerotic heart disease of native coronary artery without angina pectoris; F17.210 Nicotine dependence, cigarettes, uncomplicated; F29 Unspecified psychosis not due to a substance or known physiological condition; J44.9 Chronic obstructive pulmonary disease, unspecified; F41.9 Anxiety disorder, unspecified; K59.09 Other constipation; F03.90 Unspecified dementia, unspecified severity, without behavioral disturbance, psychotic disturbance, mood disturbance, and anxiety
CPT/HCPCS: 36415-UA; 71045-TC; 80053-TC; 80061-TC; 81001-TC; 83036-90; 83880-TC; 84443-TC; 84484-TC; 85025-TC; 87070-90; 93005; G0410; Z7610